=== PATIENT | female | born 1935 | race Caucasian/White ===

== ENCOUNTER 2021-11-10 22:00 | Inpatient (IN) | payer MEDICARE, SELFPAY ==
--- NOTE | ~2021-11-10 | XR_ITS ---
EXAMINATION: XR CHEST CLINICAL INFORMATION: Cough COMPARISON: Previous chest x-ray from yesterday TECHNIQUE: Frontal view of the chest was obtained. FINDINGS: The heart does not appear enlarged. The right pulmonary hilum appears prominent. There is question of increased central right bronchial markings. The lungs are otherwise clear. There is an air-fluid level to projects over the heart suggestive of an esophageal hernia. There is no pleural effusion or pneumothorax. Bony structures are unremarkable. XR/XR chest 1V IMPRESSION: Prominent right hilum and increased central bronchial markings questionable for airways disease or small infiltrate. Chest x-ray follow-up recommended.
--- NOTE | ~2021-11-10 | US_ITS ---
EXAMINATION: US VENOUS ULTRASOUND WITH DOPPLER LOWER EXTREMITY, BILATERAL CLINICAL INFORMATION: Bilateral lower extremity swelling. COMPARISON: None TECHNIQUE: Ultrasound of the deep veins is performed from the hip to the calf with compression sonography and color and pulse Doppler assessment. Spectral analysis with color-flow imaging is performed. FINDINGS: RIGHT: There is normal venous compression and respiratory variation and augmented flow. The visualized common femoral vein, superficial femoral vein, profunda femoral vein, popliteal vein, show no evidence of deep venous thrombosis. The evaluation of the calf veins is technically somewhat limited due to presence of edema however on color and spectral Doppler evaluation flow is noted in these veins. There is no significant popliteal fossa cyst. LEFT: There is normal venous compression and respiratory variation and augmented flow. The visualized common femoral vein, superficial femoral vein, profunda femoral vein, popliteal vein show no evidence of deep venous thrombosis. Somewhat limited evaluation of the peroneal veins due to presence of the visualized posterior tibial veins demonstrate normal color flow. Edema, blood flow is documented on spectral Doppler evaluation. There is a 4.1 x 0.6 x 2.1 cm simple-appearing fluid collection in the popliteal fossa representing a Aviles's cyst. If the patient's symptoms persist, followup ultrasound in 5 days 7 days might be of value to exclude proximal propagation from a non-visualized calf vein. US/US venous duplex LE BI IMPRESSION: Somewhat limited evaluation of few of the deep calf veins bilaterally likely due to presence of subcutaneous edema. Otherwise no DVT demonstrated in the bilateral lower extremity. A 4.1 x 0.6 x 2.1 cm left Aviles cyst.
--- NOTE | ~2021-11-10 | XR_ITS ---
EXAMINATION: XR CHEST CLINICAL INFORMATION: Shortness of breath COMPARISON: None TECHNIQUE: Frontal view of the chest was obtained. FINDINGS: No significant abnormality is noted involving the heart, lungs, mediastinum, bony thorax or soft tissues. Bibasilar atelectasis is present. XR/XR chest 1V IMPRESSION: No acute intrathoracic disease.
--- NOTE | ~2021-11-10 | MR_ITS ---
EXAMINATION: MR BRAIN WITHOUT CONTRAST CLINICAL INFORMATION: TIA. COMPARISON: CT from 11/10/2021. TECHNIQUE: Multiplanar, multisequence imaging of the brain was performed without contrast. FINDINGS: There is a small acute infarct measuring approximately 1.2 cm in size in the right peralta radiata. There are additional subcentimeter areas of mildly elevated signal on diffusion imaging not well correlated on the ADC map in the ventrolateral left thalamus and right external capsule which may represent small subacute infarcts. Moderate diffuse parenchymal volume loss evident with concordant ex vacuo dilatation of the ventricles. Mild chronic white matter microangiopathy noted. There is cystic encephalomalacia in the right middle cranial fossa with underlying gliosis in the right temporal pole and ex vacuo dilatation of the temporal horn of the right lateral ventricle. Right temporal postcraniotomy changes visible. Small cortically-based area of encephalomalacia noted in the right frontal lobe. No mass effect or midline shift is seen. The cerebellum is normal. The gradient refocused acquisition is normal. The craniovertebral junction, marrow signal, and midline structures are normal. The major intracranial flow voids at the level of the [place] are preserved. The dural venous sinus flow voids are maintained. The mastoid air cells are well aerated. Mild maxillary sinus mucosal thickening noted. Moderate spondylosis at the C3-C4 level. MR/MR head/brain wo con IMPRESSION: Small acute infarct in the right peralta radiata. Additional suspected subcentimeter subacute infarcts in the left thalamus and right external capsule. Chronic postoperative changes in the right temporal lobe. Small cortically-based area of encephalomalacia in the right frontal lobe. Moderate diffuse parenchymal volume loss and mild chronic white matter microangiopathy.
--- NOTE | ~2021-11-10 | CT_ITS ---
EXAMINATION: CT HEAD WITHOUT CONTRAST (STROKE PROTOCOL) CLINICAL INFORMATION: Stroke protocol. COMPARISON: None TECHNIQUE: Contiguous axial imaging was performed from the skull base to vertex without intravenous administration of contrast. This CT examination was performed using dose optimization techniques as appropriate, variously including the following: *Automated exposure control *Adjustment of mA and/or kV according to patient size (this includes techniques or standardized protocols for targeted exams where dose is matched to indication/reason for exam; i.e. extremities or head) *Use of iterative reconstruction technique DLP: Coronal and sagittal reformatted images are performed at CT scanner mGy-cm FINDINGS: Status post right temporal craniotomy. Focal encephalomalacia, chronic postoperative change of the right temporal lobe. There is no intracranial hemorrhage, hematoma, or extra-axial fluid collection. The moody-white matter differentiation appears symmetric. There is no acute infarct or mass lesion. There is generalized global volume loss. There is mild prominence of the ventricles and the sulci . There is mild hypodensity of the periventricular white matter due to chronic small vessel ischemic disease. There are vascular calcifications of the internal carotid arteries bilaterally. The visualized sinuses and middle ears and mastoid air cells show no significant mucosal thickening. There are no air-fluid levels. CT/CT head for stroke IMPRESSION: No acute intracranial pathology. This critical result was discussed with Dr. Gibson at 2246 hours on 11/10/2021. It was ascertained that the content and urgency of the report was understood at the time of direct communication.
--- NOTE | ~2021-11-10 | CT_ITS ---
EXAMINATION: CT ANGIOGRAM HEAD AND NECK CLINICAL INFORMATION: Transient ischemic attack. COM. PARISON: CT head dated 11/10/2021 TECHNIQUE: Test bolus sequences followed by intravenous administration 70 mL of Omnipaque 350 intravenous contrast. Helical imaging was performed in the axial plane from the mediastinum to the skull vertex. Delayed postcontrast imaging of the head was also performed. The data was processed at the radiographic technologist's workstation for generation of MIP sequences. Three-dimensional volume rendered reformatted images were also generated at an offline 3-D workstation. This CT examination was performed using dose optimization techniques as appropriate, variously including the following: *Automated exposure control *Adjustment of mA and/or kV according to patient size (this includes techniques or standardized protocols for targeted exams where dose is matched to indication/reason for exam; i.e. extremities or head) *Use of iterative reconstruction technique The degree of stenosis determined by NASCET criteria. DLP: 1518 mGy-cm FINDINGS: SOFT TISSUES AND LUNG APICES: No overt abnormality is appreciated. CTA NECK: The aortic arch has a classic configuration and the major arch vessel origins are non-stenotic. The vertebral arteries are co-dominant and both vertebral origins are widely patent. Both common carotid arteries are normal in course and caliber. Both internal carotid arteries demonstrate mild atherosclerotic plaque without significant stenosis. CTA HEAD: There is normal opacification of the major intracranial vessels. No acute proximal large vessel occlusion, focal flow-limiting stenosis, or saccular intracranial aneurysm is identified. No abnormal parenchymal enhancement or regional oligemia is visualized. HEAD (delayed): No intracranial mass, intercerebral edema, hemorrhage, or midline shift is evident. The ventricles and sulci are stable in size and configuration. No extra-axial collections are appreciated. Stable cystic encephalomalacia within the anterior right temporal lobe underlying the right pterional craniotomy, chronic. Mild background chronic white matter small vessel ischemic changes. No pathologic intracranial enhancement. Dural sinuses are patent. The paranasal sinuses are well-aerated and clear. CT/CT angio head neck IMPRESSION: No occlusion or hemodynamically significant stenosis within the intracranial or extracranial arterial vasculature
--- NOTE | 2021-11-10 22:07 | ECG_ITS ---
Test Reason : STROKE Blood Pressure : / mmHG Vent. Rate : 071 BPM Atrial Rate : 071 BPM P-R Int : 146 ms QRS Dur : 078 ms QT Int : 420 ms P-R-T Axes : 056 -01 019 degrees QTc Int : 456 ms Artifact in tracing Normal sinus rhythm Possibly normal EKG No previous ECGs available Referred By: Nataliia Mccauley Electronically Signed By:GENNY DIAZ
[2021-11-10 22:09] VITALS: BP 145/76; PULSE 78; O2SAT 88
--- NOTE | 2021-11-10 22:10 | ED.GENADULT ---
HPI - General Adult General Chief complaint: Stroke Stated complaint: STROKE. Time Seen by Provider: 11/10/21 22:05 Source: patient and EMS Mode of arrival: EMS Limitations: no limitations History of Present Illness HPI narrative: 86-year-old female came by EMS as a stroke protocol. Patient lives home alone independently around noon time ( 10 hours before arrival ) patient start to feel generalized weakness, when she tried to drink water water was drooling, otherwise patient declined any weakness or numbness or blurry vision or headache. Patient also noticed that she has been having scratchy throat, been coughing, with mild difficulty breathing, notice bilateral swelling lower extremities, patient noted to be hypoxic 88% on room air by EMS. On arrival in the ED patient had subjective complaint of slightly slurred speech but patient completes her med that she is able to express herself and find the words with no difficulties, screening neuro exam was unrevealing. Past medical history reportedly by EMS is significant for COPD. Patient confirms she is not taking anticoagulation. Related Data Allergies Allergy/AdvReac Type Severity Reaction Status Date / Time No Known Allergies Allergy Verified 11/10/21 22:06 Review of Systems Review of Systems: All other systems are reviewed and are negative Constitutional: Reports as per HPI and Reports no additional constitutional complaints Eyes: Reports as per HPI and Reports no additional eye complaints Reports system reviewed and no additional complaints, except as documented Cardiovascular: Reports as per HPI and Reports no additional cardiovascular complaints Respiratory: Reports as per HPI and Reports no additional respiratory complaints Gastrointestinal: Reports as per HPI and Reports no additional gastrointestinal complaints Genitourinary: Reports no additional female genitourinary complaints Musculoskeletal: Reports no additional musculoskeletal complaints Skin/Breast: Reports system reviewed and no additional complaints, except as docu Psychiatric: Reports no additional psychiatric complaints Endocrine: Reports no additional endocrine complaints Hematologic/Lymphatic: Reports no additional hematologic/lymphatic complaints Allergic/Immunologic: Reports no additional allergic/immunologic complaints Reports system reviewed and no additional complaints, except as documented and Reports Abnormal speech present PMFSH Social History Social History Advance Directives: No Advance Directives Information Provided: No Physical Exam Vital Signs: Vital Signs: Last Vital Signs Temp 98.3 F 11/10/21 22:29 Pulse 68 11/11/21 00:00 Resp 16 11/11/21 00:00 BP 132/57 L 11/11/21 00:00 Pulse Ox 100 11/11/21 00:00 BMI result Body Mass Index 28.3 Vital signs have been reviewed as appeared to be correct. Blood pressure normal. Heart rate normal. Respiration rate normal. Temperature normal. Oxygen saturation normal. Appearance: Alert. Oriented X3. No acute distress. Head: Normal external exam. Normocephalic. Atraumatic. No Lara signs noted. No raccoon eyes noted Eyes: PERRLA. EOMI. Conjunctiva and sclera normal. Eyelids normal. ENT: TM's Normal. Pharynx normal. Uvula midline. Moist mucous membranes. No trismus noted. No drooling noted. No muffled voice noted. Neck: Normal inspection. Neck supple. FROM. No adenopathy. Thyroid Normal. No meningeal signs. No neck mass noted. CVS: Normal heart rate and rhythm. Heart sound normal. No murmurs noted. Pulses normal throughout. Respiratory: No respiratory distress. Painless inspiration. Breath sounds normal. No wheezes/rales/rhonchi noted. Chest nontender. No accessory muscle usage noted or decreased air movement noted. Abdomen: Soft and nontender. Bowel sounds normal in all 4 quadrants. No distention noted. No organomegaly noted. No visible injury noted. Back: No CVA tenderness. Full range of motion noted. Skin: Skin warm and dry. Normal skin color. Normal skin turgor. No rashes/lesions/lacerations noted. Extremities: No lower extremity edema. Extremities exhibit normal range of motion. Extremities nontender. Neuro: Oriented X 3. Cranial nerve exam: II-XII are grossly intact No motor deficit. No sensory deficit. Reflexes normal. NIH Stroke Scale Internal: Initial- Upon Arrival Time: 22:17 Level of Consciousness: Alert Level of Consciousness Questions: Answers both questions correctly Level of Consciousness Commands: Performs both tasks correctly Best Gaze: Normal Visual: No visual loss Facial Palsy: Normal Motor Arm (Right): No drift Motor Arm (Left): No drift Motor Leg (Right): No drift Motor Leg (Left): No drift Limb Ataxia: Absent Sensory: Normal Best Language: Mild to moderate aphasia ( Subjectively by the patient but not appreciated on the physical exam.) Dysarthia: Normal Extinction and Inattention: No abnormality Score: 1 Course Course Course Narrative: assessment and plan. 86-year-old female came in as a stroke alert, main symptoms is slurred speech, and family concern of change mental status. Patient had normal neural exam with NIH score 1, negative CT/ CTA of the head and neck reportedly by EMS patient had history of cerebral aneurysm CT of the head the neck was unrevealing. Labs are unremarkable, patient COVID negative. As reportedly by EMS patient had O2 sat of 88%, patient has been giving her O2 oxygenation above 92% at all times while she is in the ED. Noted to have bilateral lower extremity swelling, will obtain ultrasound lower extremities in the morning. Medical Decision Making Lab Data Lab results reviewed: Yes I reviewed the patient's lab results. Result diagrams: 11/10/21 22:45 11/10/21 22:45 Labs: Lab Results 11/10/21 11/10/21 11/10/21 Range/Units 22:06 22:07 22:45 WBC 10.0 (4.8-10.8) X10*3/uL RBC 4.00 L (4.20-5.50) X10*6/uL Hgb 11.2 L (12.0-16.0) g/dl Hct 35.2 L (37.0-47.0) % MCV 88.0 (80.0-98.0) fL MCH 28.0 (27.0-33.0) pg MCHC 31.8 (31.0-35.0) g/dl RDW 14.0 (11.0-16.0) % Plt Count 353 (160-400) X10*3/uL MPV 8.6 L (9.4-12.3) fL Immature Gran % (Auto) 0.6 H (0.0-0.4) % Neut % (Auto) 88.4 H (45-73) % Lymph % (Auto) 5.0 L (20-40) % [place] % (Auto) 3.6 (2-11) % Eos % (Auto) 2.0 (0-4) % Baso % (Auto) 0.4 (0-2) % Lymph # (Auto) 0.5 L (1.2-4.9) X10*3/uL [place] # (Auto) 0.4 (0.1-1.2) X10*3/uL Eos # (Auto) 0.2 (0.0-0.4) X10*3/uL Baso # (Auto) 0.0 (0.0-0.2) X10*3/uL Abs Immat Gran (auto) 0.06 H (0.00-0.03) X10*3/uL Absolute Neuts (auto) 8.8 H (2.0-8.3) x10*3/uL Absolute Nucleated RBC 0.000 (0.0-0.012) X10*3/uL Nucleated RBC % (auto) 0.0 (0.0-0.2) /100WBC PT (9.9-13.0) SEC Whole Blood PT 13.6 H (11.1-13.5) sec INR (0.9-1.1) Whole Blood INR 1.1 (0.9-1.1) APTT (24.1-38.0) SEC Sodium (135-145) mmol/L Potassium (3.3-5.1) mmol/L Chloride (96-108) mmol/L Carbon Dioxide (22-29) mmol/L Anion Gap (12-20) BUN (9-16) mg/dL Creatinine (0.5-1.4) mg/dL Estim Creat Clear Calc Estimated GFR POC Glucose 102 (60-115) mg/dL Random Glucose (60-115) mg/dL Calcium (8.4-10.2) mg/dL Total Creatine Kinase (26-140) U/L Troponin I High Sens (<3.5-17.0) ng/L COVID-19 ([facility]) (Negative) COVID-19 Clin Com 11/10/21 11/10/21 11/10/21 Range/Units 22:45 22:45 22:45 WBC (4.8-10.8) X10*3/uL RBC (4.20-5.50) X10*6/uL Hgb (12.0-16.0) g/dl Hct (37.0-47.0) % MCV (80.0-98.0) fL MCH (27.0-33.0) pg MCHC (31.0-35.0) g/dl RDW (11.0-16.0) % Plt Count (160-400) X10*3/uL MPV (9.4-12.3) fL Immature Gran % (Auto) (0.0-0.4) % Neut % (Auto) (45-73) % Lymph % (Auto) (20-40) % [place] % (Auto) (2-11) % Eos % (Auto) (0-4) % Baso % (Auto) (0-2) % Lymph # (Auto) (1.2-4.9) X10*3/uL [place] # (Auto) (0.1-1.2) X10*3/uL Eos # (Auto) (0.0-0.4) X10*3/uL Baso # (Auto) (0.0-0.2) X10*3/uL Abs Immat Gran (auto) (0.00-0.03) X10*3/uL Absolute Neuts (auto) (2.0-8.3) x10*3/uL Absolute Nucleated RBC (0.0-0.012) X10*3/uL Nucleated RBC % (auto) (0.0-0.2) /100WBC PT 11.9 (9.9-13.0) SEC Whole Blood PT (11.1-13.5) sec INR 1.0 (0.9-1.1) Whole Blood INR (0.9-1.1) APTT 33.7 (24.1-38.0) SEC Sodium 140 (135-145) mmol/L Potassium 3.6 (3.3-5.1) mmol/L Chloride 104 (96-108) mmol/L Carbon Dioxide 28 (22-29) mmol/L Anion Gap 12 (12-20) BUN 19 H (9-16) mg/dL Creatinine 0.98 (0.5-1.4) mg/dL Estim Creat Clear Calc 42.2 Estimated GFR 54 POC Glucose (60-115) mg/dL Random Glucose 115 (60-115) mg/dL Calcium 8.0 L (8.4-10.2) mg/dL Total Creatine Kinase 14 L (26-140) U/L Troponin I High Sens 12.7 (<3.5-17.0) ng/L COVID-19 ([facility]) (Negative) COVID-19 Clin Com 11/10/21 Range/Units 22:45 WBC (4.8-10.8) X10*3/uL RBC (4.20-5.50) X10*6/uL Hgb (12.0-16.0) g/dl Hct (37.0-47.0) % MCV (80.0-98.0) fL MCH (27.0-33.0) pg MCHC (31.0-35.0) g/dl RDW (11.0-16.0) % Plt Count (160-400) X10*3/uL MPV (9.4-12.3) fL Immature Gran % (Auto) (0.0-0.4) % Neut % (Auto) (45-73) % Lymph % (Auto) (20-40) % [place] % (Auto) (2-11) % Eos % (Auto) (0-4) % Baso % (Auto) (0-2) % Lymph # (Auto) (1.2-4.9) X10*3/uL [place] # (Auto) (0.1-1.2) X10*3/uL Eos # (Auto) (0.0-0.4) X10*3/uL Baso # (Auto) (0.0-0.2) X10*3/uL Abs Immat Gran (auto) (0.00-0.03) X10*3/uL Absolute Neuts (auto) (2.0-8.3) x10*3/uL Absolute Nucleated RBC (0.0-0.012) X10*3/uL Nucleated RBC % (auto) (0.0-0.2) /100WBC PT (9.9-13.0) SEC Whole Blood PT (11.1-13.5) sec INR (0.9-1.1) Whole Blood INR (0.9-1.1) APTT (24.1-38.0) SEC Sodium (135-145) mmol/L Potassium (3.3-5.1) mmol/L Chloride (96-108) mmol/L Carbon Dioxide (22-29) mmol/L Anion Gap (12-20) BUN (9-16) mg/dL Creatinine (0.5-1.4) mg/dL Estim Creat Clear Calc Estimated GFR POC Glucose (60-115) mg/dL Random Glucose (60-115) mg/dL Calcium (8.4-10.2) mg/dL Total Creatine Kinase (26-140) U/L Troponin I High Sens (<3.5-17.0) ng/L COVID-19 ([facility]) Negative (Negative) COVID-19 Clin Com See Note Imaging Data Chest x-ray: Attestation: I personally reviewed and interpreted this imaging study as follows: Radiologist's impression: No acute intrathoracic disease. CT scan - head: Attestation: I personally reviewed and interpreted this imaging study as follows: Radiologist's impression: No acute intracranial pathology. Head and neck CTA: Attestation: I personally reviewed and interpreted this imaging study as follows: Radiologist's impression: No occlusion or hemodynamically significant stenosis within the intracranial or extracranial arterial vasculature? ? ECG Data Attestation: I personally reviewed and interpreted this ECG as follows: Interpretation: normal sinus rhythm at 71 beats per minutes, normal intervals, no ST-T changes. Discharge Plan Discharge Clinical Impression: Transient cerebral ischemia Patient Disposition: Admitted As Inpatient
[2021-11-10 22:13] LABS: Prothrombin Time Whole Bld POC 13.6 sec (11.1-13.5); ~PT, ~INR - Anti Coag Clinic 1.1 (0.9-1.1)
[2021-11-10 22:14] LABS: Glucose, Whole Blood 102 mg/dL (60-115)
[2021-11-10 22:29] VITALS: PULSE 69; RESP 17; TEMP 36.8; BMI 28.3
[2021-11-10 22:49] LABS: MANUAL DIFF FLAG NO
[2021-11-10 22:50] LABS: Basophils Percent Auto 0.4 % (0-2); Eosinophils Absolute Auto 0.2 X10*3/uL (0.0-0.4); Hematocrit 35.2 % (37.0-47.0); Hemoglobin 11.2 g/dl (12.0-16.0); Imm Gran Abs Auto 0.06 X10*3/uL (0.00-0.03); Imm Gran Pct Auto 0.6 % (0.0-0.4); Lymphocytes Absolute Auto 0.5 X10*3/uL (1.2-4.9); Mean Corpuscular HGB Conc 31.8 g/dl (31.0-35.0); Mean Platelet Volume 8.6 fL (9.4-12.3); Monocytes Absolute Auto 0.4 X10*3/uL (0.1-1.2); Monocytes Percent Auto 3.6 % (2-11); Neutrophils Absolute Auto 8.8 x10*3/uL (2.0-8.3); Neutrophils Percent Auto 88.4 % (45-73); Platelet Count 353 X10*3/uL (160-400)
[2021-11-10 22:55] LABS: Prothrombin Time 11.9 SEC (9.9-13.0)
[2021-11-10 22:58] LABS: Partial Thromboplastin Time 33.7 SEC (24.1-38.0)
[2021-11-10 22:59] LABS: Stroke Lab Use COMPLETE
[2021-11-10 23:05] LABS: Anion Gap 12 (12-20); Blood Urea Nitrogen 19 mg/dL (9-16); Carbon Dioxide 28 mmol/L (22-29); Chloride 104 mmol/L (96-108); Creatinine Clr Calc Pharmacy 42.2; Estimated Glomerular Filt Rate 54; Glucose Random 115 mg/dL (60-115); Potassium 3.6 mmol/L (3.3-5.1); Sodium 140 mmol/L (135-145)
[2021-11-10 23:10] LABS: Troponin-I High Sensitivity 12.7 ng/L (<3.5-17.0)
[2021-11-10 23:13] LABS: COVID-19 Test Negative (Negative)
[2021-11-11] VITALS (8 sets, daily range): BP systolic 91–132; BP diastolic 48–66; PULSE 62–90; RESP 12–22; TEMP 36.6; O2SAT 91–100
[2021-11-11] MEDS: iohexoL 350 MG/ML 100 ML INFUS..BTL 70 ML IV (01:06)
--- NOTE | 2021-11-11 01:54 | PM.IMHP ---
History of Present Illness Date of Service: 11/11/21 Chief Complaint: drooling, weakness An 86-year-old female with past medical history of COPD who presents to the hospital with complaints of generalized weakness, drooling, and having difficulty speaking appropriately. Patient reports that her voice and her speech stones funny and she was feeling generally weak mostly on the right lower extremity. She denies having any facial numbness or tingling, denies any upper extremity weakness. She denies having any headache or change in vision. She is also complaining of 1 month history of increasing and worsening cough, worsening sputum production, and dyspnea worsened on exertion. She is complaining of leg swelling bilaterally but worse on the right. She denies any fever or chills, no abdominal pain nausea or vomiting. on arrival to the ED patient hemodynamically stable with no significant abnormal vitals satting 94% on room air Labs are signific diabetes a count of 10.0, hemoglobin of 11.2, hematocrit 35.2, labs otherwise unremarkable. Troponin negative, COVID-19 negative. Chest x-ray negative, Head and neck CT angiogram shows no occlusion or hemodynamically significant stenosis within the intracranial or extracranial arterial vasculature this patient will be admitted for further evaluation Review of Systems Review of Systems: Yes all other systems are reviewed and are negative [facility] Medical History (Updated 11/11/21 @ 05:21 by Jaison Bran MD) COPD (chronic obstructive pulmonary disease) Pertinent family history: denies any family history Surgical History (Updated 11/11/21 @ 05:21 by Jaison Bran MD) No pertinent past surgical history Social History Advance Directives: No Advance Directives Information Provided: No Meds Allergies Allergy/AdvReac Type Severity Reaction Status Date / Time No Known Allergies Allergy Verified 11/10/21 22:06 Physical Exam Vital Signs and Narrative: Vital Signs: Last Vital Signs Temp 98.3 F 11/10/21 22:29 Pulse 68 11/11/21 00:00 Resp 16 11/11/21 00:00 BP 132/57 L 11/11/21 00:00 Pulse Ox 100 11/11/21 00:00 BMI result Body Mass Index 28.3 Const: General: cooperative and no acute distress Orientation/consciousness: patient oriented x3 Eyes: General: appearance normal, both eyes and all related structures Pupils: Equal, round and reactive pupils present Resp: Other: crackles bilaterally Effort & Inspection: normal respiratory effort Cardio: Rate: regular rate Rhythm: regular rhythm GI: Palpation (GI): Soft to palpation Auscultation: normal bowel sounds Skin: General skin exam: no rashes or lesions noted Neuro: Other: strength is 4/5 on the right, 5/5 on the left General: patient oriented x3 Cranial nerves: Yes Equal, round and reactive pupils present Cognition (Neuro): normal cognition Extrem: Other: 1+ pedal edema on the right General: Yes normal to inspection Results Labs CBC and Chem 7: 11/10/21 22:45 11/10/21 22:45 Labs: Laboratory Results - last 24 hr 11/10/21 11/10/21 11/10/21 22:06 22:07 22:45 MCV 88.0 MCH 28.0 MCHC 31.8 RDW 14.0 Plt Count 353 MPV 8.6 L Immature Gran % (Auto) 0.6 H Neut % (Auto) 88.4 H Lymph % (Auto) 5.0 L [place] % (Auto) 3.6 Eos % (Auto) 2.0 Baso % (Auto) 0.4 Lymph # (Auto) 0.5 L [place] # (Auto) 0.4 Eos # (Auto) 0.2 Baso # (Auto) 0.0 Abs Immat Gran (auto) 0.06 H Absolute Neuts (auto) 8.8 H Absolute Nucleated RBC 0.000 Nucleated RBC % (auto) 0.0 PT Whole Blood PT 13.6 H INR Whole Blood INR 1.1 APTT Anion Gap Estim Creat Clear Calc Estimated GFR POC Glucose 102 Random Glucose Calcium Total Creatine Kinase Troponin I High Sens COVID-19 ([facility]) COVID-19 Clin Com 11/10/21 11/10/21 11/10/21 22:45 22:45 22:45 MCV MCH MCHC RDW Plt Count MPV Immature Gran % (Auto) Neut % (Auto) Lymph % (Auto) [place] % (Auto) Eos % (Auto) Baso % (Auto) Lymph # (Auto) [place] # (Auto) Eos # (Auto) Baso # (Auto) Abs Immat Gran (auto) Absolute Neuts (auto) Absolute Nucleated RBC Nucleated RBC % (auto) PT 11.9 Whole Blood PT INR 1.0 Whole Blood INR APTT 33.7 Anion Gap 12 Estim Creat Clear Calc 42.2 Estimated GFR 54 POC Glucose Random Glucose 115 Calcium 8.0 L Total Creatine Kinase 14 L Troponin I High Sens 12.7 COVID-19 ([facility]) COVID-19 Clin Com 11/10/21 22:45 MCV MCH MCHC RDW Plt Count MPV Immature Gran % (Auto) Neut % (Auto) Lymph % (Auto) [place] % (Auto) Eos % (Auto) Baso % (Auto) Lymph # (Auto) [place] # (Auto) Eos # (Auto) Baso # (Auto) Abs Immat Gran (auto) Absolute Neuts (auto) Absolute Nucleated RBC Nucleated RBC % (auto) PT Whole Blood PT INR Whole Blood INR APTT Anion Gap Estim Creat Clear Calc Estimated GFR POC Glucose Random Glucose Calcium Total Creatine Kinase Troponin I High Sens COVID-19 ([facility]) Negative COVID-19 Clin Com See Note Imaging Radiologist's Impressions: Impressions Head CT 11/10/21 22:12 IMPRESSION: No acute intracranial pathology. This critical result was discussed with Dr. Gibson at 2246 hours on 11/10/2021. It was ascertained that the content and urgency of the report was understood at the time of direct communication. Chest X-Ray 11/10/21 22:20 IMPRESSION: No acute intrathoracic disease. Head/Neck CTA 11/11/21 01:01 IMPRESSION: No occlusion or hemodynamically significant stenosis within the intracranial or extracranial arterial vasculature Assessment and Plan (1) COPD exacerbation: Status: Acute (2) Transient cerebral ischemia: Status: Acute (3) Swelling of lower extremity: Status: Acute 86-year-old female who presents to the hospital with complaints of right-sided weakness, and slurred speech found to have COPD exacerbation # CVA vs generalized weakness - has some mild weakness on the right - head CTA negative - CN2-12 intact - head ct -ve - will obtain MRI, admit to telemetry - consult neurology - high dose statin and asa - lipid battery # COPD exacerbation - has increased cough, sputum production, shortness of breath - no evidence of pneumonia on chest x-ray, COVID-19 negative - low start patient on steroids, DuoNeb p.r.n. as well as q.i.d. scheduled - monitor respiratory status # lower extremity swelling - worse on the right with tenderness - possible DVT - will obtain venous duplex of lower extremities - does not appear to Bart overloaded but we will obtain BNP to rule out CHF exacerbation DVT prophylaxis: Lovenox Quality Stroke Does the patient have a stroke diagnosis?: No VTE Prior VTE?: No VTE Risk Level:: Medical - moderate - high VTE Device Contraindication: Treatment Not Indicated VTE Drug Contraindication: N/A - Med Ordered
[2021-11-11 06:20] LABS: MANUAL DIFF FLAG NO
[2021-11-11 06:21] LABS: Basophils Percent Auto 0.3 % (0-2); Eosinophils Absolute Auto 0.3 X10*3/uL (0.0-0.4); Eosinophils Percent Auto 2.3 % (0-4); Hematocrit 33.9 % (37.0-47.0); Hemoglobin 10.7 g/dl (12.0-16.0); Imm Gran Abs Auto 0.07 X10*3/uL (0.00-0.03); Imm Gran Pct Auto 0.6 % (0.0-0.4); Lymphocytes Absolute Auto 0.4 X10*3/uL (1.2-4.9); Mean Corpuscular HGB Conc 31.6 g/dl (31.0-35.0); Mean Corpuscular Hemoglobin 27.6 pg (27.0-33.0); Mean Corpuscular Volume 87.6 fL (80.0-98.0); Mean Platelet Volume 8.7 fL (9.4-12.3); Monocytes Absolute Auto 0.6 X10*3/uL (0.1-1.2); Monocytes Percent Auto 5.2 % (2-11); Neutrophils Absolute Auto 9.7 x10*3/uL (2.0-8.3); Neutrophils Percent Auto 87.6 % (45-73); Platelet Count 333 X10*3/uL (160-400); Red Blood Count 3.87 X10*6/uL (4.20-5.50)
[2021-11-11] MEDS: methylPREDNISolone Sod Succ 40 MG/ML VIAL IVPUSH ×2 (06:27→18:03)
[2021-11-11] MEDS: Aspirin Enteric Coated 81 MG TABLET.DR PO ×2 (06:27→09:28)
[2021-11-11 06:37] LABS: Anion Gap 12 (12-20); Blood Urea Nitrogen 17 mg/dL (9-16); Calcium 7.9 mg/dL (8.4-10.2); Carbon Dioxide 28 mmol/L (22-29); Chloride 104 mmol/L (96-108); Creatinine Clr Calc Pharmacy 47.1; Estimated Glomerular Filt Rate > 60; Glucose Random 103 mg/dL (60-115); Potassium 3.7 mmol/L (3.3-5.1); Sodium 140 mmol/L (135-145)
[2021-11-11 06:39] LABS: Cholesterol 142 mg/dL; HDL Cholesterol 41 mg/dL; LDL Cholesterol Calculated 86 mg/dl; Triglycerides 78 mg/dL
[2021-11-11 06:42] LABS: B Type Natriuretic Peptide 144 pg/mL (<100)
--- NOTE | 2021-11-11 08:56 | PHA.MEDREC ---
Pharmacy Consult ? Medication Reconciliation Pharmacy has completed the medication reconciliation.
[2021-11-11] MEDS: Albuterol/Iprat 2.5/0.5MG 3 ML AMPUL.NEB INHALE ×3 (09:03→20:36)
[2021-11-11] MEDS: Enoxaparin Sodium 40 MG/0.4 ML SYRINGE SUBCUT (09:28)
[2021-11-11] MEDS: 0.9 % Sodium Chloride Flush 3 ML SYRINGE IVFLUSH ×2 (09:28→16:06)
--- NOTE | 2021-11-11 11:39 | PC.NURSE ---
Pt A&Ox3, plan for MRI today for stroke work up, neuros grossly intact. Good PO intake, no complaints of pain, medicated as per MAR orders. Awaiting bed assignment. Will continue to monitor.
--- NOTE | 2021-11-11 15:37 | PM.NEUROCN ---
History of Present Illness Data of Consult Service Date: 11/11/21 Primary Care Provider: Unknown Physician HPI Reason for consult: Genl weakness and slurred speech This is a 86-year-old woman with history of COPD who presents with complaints of generalized weakness, drooling, and difficulty speaking with her speech sounding funny and she is generally weak, more so in the? right lower extremity.? She denies having any facial numbness or tingling, denies any upper extremity weakness, any headache or change in vision.? She is also complaining of 1 month history of increasing and worsening cough, worsening sputum production, and dyspnea worsened on exertion.? She is complaining of? leg swelling bilaterally but worse on the right.? She denies any fever or chills. Review of Systems Review of Systems: All other systems are reviewed and are negative Constitutional: Reports as per HPI and Reports no additional constitutional complaints Eyes: Reports as per HPI and Reports no additional eye complaints Reports system reviewed and no additional complaints, except as documented Cardiovascular: Reports as per HPI and Reports no additional cardiovascular complaints Respiratory: Reports as per HPI and Reports no additional respiratory complaints Gastrointestinal: Reports as per HPI and Reports no additional gastrointestinal complaints Genitourinary: Reports no additional female genitourinary complaints Musculoskeletal: Reports no additional musculoskeletal complaints Skin/Breast: Reports system reviewed and no additional complaints, except as docu Psychiatric: Reports no additional psychiatric complaints Endocrine: Reports no additional endocrine complaints Hematologic/Lymphatic: Reports no additional hematologic/lymphatic complaints Allergic/Immunologic: Reports no additional allergic/immunologic complaints Reports system reviewed and no additional complaints, except as documented and Reports Abnormal speech present Yes all other systems are reviewed and are negative [facility] Past Medical History Medical History (Updated 11/11/21 @ 15:43 by Kit Baltazar MD) COPD (chronic obstructive pulmonary disease) Family History Pertinent family history: denies any family history Surgical History Surgical History (Updated 11/11/21 @ 05:21 by Jaison Bran MD) No pertinent past surgical history Social History Social History Advance Directives: No Advance Directives Information Provided: No Meds Allergies Allergy/AdvReac Type Severity Reaction Status Date / Time No Known Allergies Allergy Verified 11/10/21 22:06 Active Medications: Current Medications Acetaminophen (Acetaminophen 325 Mg Tablet) 650 mg PO Q6H PRN PRN Reason: Pain, Mild (Pain Scale 1-3) Albuterol/Ipratropium (Albuterol/Iprat 2.5/0.5mg 3 Ml Ampul.Neb) 3 ml INHALE RQ4H PRN PRN Reason: Shortness of Breath/Wheezing Albuterol/Ipratropium (Albuterol/Iprat 2.5/0.5mg 3 Ml Ampul.Neb) 3 ml INHALE RQ4H WHILE AWAKE [facility] Last Admin: 11/11/21 13:09 Dose: Not Given Documented by: Aspirin (Aspirin Enteric Coated 81 Mg Tablet.) 81 mg PO DAILY [facility] Last Admin: 11/11/21 09:28 Dose: 81 mg Documented by: Atorvastatin Calcium (Atorvastatin Calcium 40 Mg Tablet) 40 mg PO BEDTIME [facility] Docusate Sodium (Docusate Sodium 100 Mg Capsule) 100 mg PO DAILY PRN PRN Reason: Constipation Enoxaparin Sodium (Enoxaparin Sodium 40 Mg/0.4 Ml Syringe) 40 mg SUBCUT Q24H [facility] Last Admin: 11/11/21 09:28 Dose: 40 mg Documented by: Methylprednisolone Sodium Succinate (Methylprednisolone Sod Succ 40 Mg/Ml Vial) 40 mg IVPUSH Q12H [facility] Last Admin: 11/11/21 06:27 Dose: 40 mg Documented by: Ondansetron HCl (Ondansetron Hcl 4 Mg/2 Ml Vial) 4 mg IVPUSH Q8H PRN PRN Reason: Nausea and Vomiting Sodium Chloride (0.9 % Sodium Chloride Flush 3 Ml Syringe) 3 ml IVFLUSH QSHIFT [facility] Last Admin: 11/11/21 09:28 Dose: 3 ml Documented by: Home Medications Medication Instructions Recorded Confirmed Last Taken Type albuterol sulfate 90 mcg/actuation 2 puff INHALATION Q4-6H PRN 11/11/21 11/11/21 Unknown History aerosol inhaler fluticasone fur. 100 mcg-umeclid 1 puff INHALATION DAILY 11/11/21 11/11/21 Unknown History 62.5 mcg-vilant 25 mcg inhalat.powder (Trelegy Ellipta) furosemide 20 mg tablet 1 tab PO DAILY 11/11/21 11/11/21 Unknown History Physical Exam Vital Signs: Vital Signs: Last Vital Signs Temp 97.8 F 11/11/21 12:21 Pulse 75 11/11/21 12:21 Resp 16 11/11/21 12:21 BP 116/57 L 11/11/21 12:21 Pulse Ox 95 11/11/21 12:21 BMI result Body Mass Index 28.3 Const: General: cooperative and no acute distress Orientation/consciousness: patient oriented x3 Eyes: General: appearance normal, both eyes and all related structures Pupils: Equal, round and reactive pupils present Resp: Other: crackles bilaterally Effort & Inspection: normal respiratory effort Cardio: Rate: regular rate Rhythm: regular rhythm GI: Palpation (GI): Soft to palpation Auscultation: normal bowel sounds Skin: General skin exam: no rashes or lesions noted Neuro: Other: She has mild weakness on the right 4/5 on the right, 5/5 on the left General: patient oriented x3 Cranial nerves: Yes Equal, round and reactive pupils present Cognition (Neuro): normal cognition Extrem: Other: 1+ pedal edema on the right General: Yes normal to inspection Results Labs CBC & Chem 7: 11/11/21 05:55 11/11/21 05:55 Labs: Short CBC 11/10/21 11/11/21 Range/Units 22:45 05:55 WBC 10.0 11.0 H (4.8-10.8) X10*3/uL Hgb 11.2 L 10.7 L (12.0-16.0) g/dl Hct 35.2 L 33.9 L (37.0-47.0) % Plt Count 353 333 (160-400) X10*3/uL BMP 11/10/21 11/11/21 22:45 05:55 Sodium 140 140 Potassium 3.6 3.7 Chloride 104 104 Carbon Dioxide 28 28 BUN 19 H 17 H Creatinine 0.98 0.88 Calcium 8.0 L 7.9 L Cardiac Enzymes 11/10/21 Range/Units 22:45 Total Creatine Kinase 14 L (26-140) U/L Assessment and Plan (1) COPD exacerbation: Status: Acute (2) Swelling of lower extremity: Status: Acute (3) 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 These could be more likely embolic or possibly from small vessel disease.CTA of head and neck is without occlusive disease. Recom. Echocardiogram, cardiac monitoring for atrial fib. ASA and plavix 75mg. PT/OT and speech therapy 86-year-old female who presents to the hospital with complaints of right-sided weakness, and slurred speech found to have COPD exacerbation # CVA vs generalized weakness - has some mild weakness on the right - head CTA negative - CN2-12 intact - head ct -ve - will obtain MRI, admit to telemetry - consult neurology - high dose statin and asa - lipid battery # COPD exacerbation - has increased cough, sputum production, shortness of breath - no evidence of pneumonia on chest x-ray, COVID-19 negative - low start patient on steroids, DuoNeb p.r.n. as well as q.i.d. scheduled - monitor respiratory status # lower extremity swelling - worse on the right with tenderness - possible DVT - will obtain venous duplex of lower extremities - does not appear to Bart overloaded but we will obtain BNP to rule out CHF exacerbation DVT prophylaxis: Lovenox Procedures Date of Service Date of Service: 11/11/21
--- NOTE | 2021-11-11 16:12 | MHC.STROKE ---
11/10/21 2155 ems pre-notified, Stroke Alert, Slurred speech. Arrived at 2200, seen by stroke protocol activated, onset of symtpoms 1200 today, therefore out of the window for TPA, direct to ct, no bleed, cta h/n done. verified that the patient passed swallow screen at 0625 prior to po aspirin, mri done today + acute and sub-acute strokes, see mri reading and Dr. Baltazar's note. Please provide stroke education booklet, lipid panel, Physical Therapy eval.
--- NOTE | 2021-11-11 17:02 | PC.NURSE ---
Pt OOB to chair with standby assist. Awaiting bed assignment, call ellison within reach. Will continue to monitor.
--- NOTE | 2021-11-11 17:09 | PM.EVENT ---
Event Note Date of Service: 11/11/21 Event Note: Patient seen and examined by hospitalist service this morning. Seen and examined again- denies any chest pain shortness breath abdominal pain or fever chills or cough or phlegm. Seems awake alert. Physical exam unchanged except She has mild weakness on the right 4/5 on the right, 5/5 on the left? General: patient oriented x3? Cranial nerves: Yes Equal, round and reactive pupils present? Cognition - normal cognition assessment and plan: Coordinated in H&P note: neuro eval noted patient is already on aspirin, added Plavix, continue statin, lipid panel noted, echo added, continue tele neuro checks. Continue current COPD management-shortness of breath is improving
[2021-11-11] MEDS: Clopidogrel Bisulfate 75 MG TABLET PO (18:03)
[2021-11-11] MEDS: Omeprazole 20 MG CAPSULE.DR PO (18:03)
[2021-11-11] MEDS: Atorvastatin Calcium 40 MG TABLET PO (20:34)
[2021-11-11] MEDS: Famotidine 20 MG TABLET PO (20:34)
[2021-11-12] VITALS (7 sets, daily range): BP systolic 103–168; BP diastolic 43–81; PULSE 57–99; RESP 14–25; TEMP 36.3–36.8; O2SAT 94–96
[2021-11-12] MEDS: methylPREDNISolone Sod Succ 40 MG/ML VIAL IVPUSH ×2 (06:31→19:18)
[2021-11-12] MEDS: Omeprazole 20 MG CAPSULE.DR PO ×2 (06:31→15:59)
[2021-11-12] MEDS: Clopidogrel Bisulfate 75 MG TABLET PO (08:23)
[2021-11-12] MEDS: Aspirin Enteric Coated 81 MG TABLET.DR PO (08:23)
[2021-11-12] MEDS: Famotidine 20 MG TABLET PO ×2 (08:23→21:13)
[2021-11-12] MEDS: Enoxaparin Sodium 40 MG/0.4 ML SYRINGE SUBCUT (08:24)
[2021-11-12] MEDS: 0.9 % Sodium Chloride Flush 3 ML SYRINGE IVFLUSH ×2 (08:24→23:47)
--- NOTE | 2021-11-12 08:33 | HO.PM.IMPN ---
Subjective Subjective Date of Service: 11/12/21 Interval History: cva Review of Systems feeling slightly better shortness of breath improving Denies any chest pain or abdominal pain or nausea or vomiting or cough or phlegm. I Physical Exam Vital Signs: Vital Signs: Last Vital Signs Temp 97.8 F 11/11/21 12:21 Pulse 98 11/12/21 04:18 Resp 25 H 11/12/21 04:18 BP 130/72 11/12/21 04:18 Pulse Ox 96 11/12/21 04:18 BMI result Body Mass Index 28.3 Physical exam: Appearance: Alert.? Oriented X3.sob seems improving.? cvs: rrr, [id number] . res: bretah sounds slightly improving , has rhonchii abd: no rebound or guarding ,nt, bs present. ext pulses present , no cyanosis . neuro: axo3 , simialr as yesterday -She has mild weakness on the right 4/5 on the right, 5/5 on the left? General: patient oriented x3? Cranial nerves: Yes Equal, round and reactive pupils present? Cognition - normal cognition Objective Data Active Medications Acetaminophen (Acetaminophen 325 Mg Tablet) 650 mg PO Q6H PRN PRN Reason: Pain, Mild (Pain Scale 1-3) Albuterol/Ipratropium (Albuterol/Iprat 2.5/0.5mg 3 Ml Ampul.Neb) 3 ml INHALE RQ4H PRN PRN Reason: Shortness of Breath/Wheezing Albuterol/Ipratropium (Albuterol/Iprat 2.5/0.5mg 3 Ml Ampul.Neb) 3 ml INHALE RQ4H WHILE AWAKE [facility] Last Admin: 11/11/21 20:36 Dose: 3 ml Documented by: JACKSON Aspirin (Aspirin Enteric Coated 81 Mg Tablet.) 81 mg PO DAILY [facility] Last Admin: 11/12/21 08:23 Dose: 81 mg Documented by: SALOMON Atorvastatin Calcium (Atorvastatin Calcium 40 Mg Tablet) 40 mg PO BEDTIME [facility] Last Admin: 11/11/21 20:34 Dose: 40 mg Documented by: AUBREY Clopidogrel Bisulfate (Clopidogrel Bisulfate 75 Mg Tablet) 75 mg PO DAILY [facility] Last Admin: 11/12/21 08:23 Dose: 75 mg Documented by: SAOLMON Docusate Sodium (Docusate Sodium 100 Mg Capsule) 100 mg PO DAILY PRN PRN Reason: Constipation Enoxaparin Sodium (Enoxaparin Sodium 40 Mg/0.4 Ml Syringe) 40 mg SUBCUT Q24H [facility] Last Admin: 11/12/21 08:24 Dose: 40 mg Documented by: SALOMON Famotidine (Famotidine 20 Mg Tablet) 20 mg PO BID [facility] Last Admin: 11/12/21 08:23 Dose: 20 mg Documented by: SALOMON Methylprednisolone Sodium Succinate (Methylprednisolone Sod Succ 40 Mg/Ml Vial) 40 mg IVPUSH Q12H [facility] Last Admin: 11/12/21 06:31 Dose: 40 mg Documented by: AUBREY Omeprazole (Omeprazole 20 Mg Capsule.) 20 mg PO BID@0630,1630 [facility] Last Admin: 11/12/21 06:31 Dose: 20 mg Documented by: AUBREY Ondansetron HCl (Ondansetron Hcl 4 Mg/2 Ml Vial) 4 mg IVPUSH Q8H PRN PRN Reason: Nausea and Vomiting Sodium Chloride (0.9 % Sodium Chloride Flush 3 Ml Syringe) 3 ml IVFLUSH QSHIFT [facility] Last Admin: 11/12/21 08:24 Dose: 3 ml Documented by: SALOMON Labs CBC & Chem 7: 11/11/21 05:55 11/11/21 05:55 Assessment and Plan (1) Stroke (cerebrum): Status: Acute (2) Swelling of lower extremity: Status: Acute (3) COPD exacerbation: Status: Acute Assessment and Plan: 86-year-old female who presents to the hospital with complaints of right-sided weakness, and slurred speech found to have COPD exacerbation 1. CVA vs generalized weakness - has some mild weakness on the right head CTA negative and head ct -ve. 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 These could be more likely embolic or possibly from small vessel disease.CTA of head and neck is without occlusive disease. neuro:high dose statin and asa, tele echo for possible embolic cva. pt/ot/speech eval 2. COPD exacerbation-? has increased cough, sputum production, shortness of breath - no? evidence of pneumonia on chest x-ray, COVID-19 negative -? low start patient on steroids, DuoNeb p.r.n. as well as q.i.d. scheduled -? monitor respiratory status 3. lower extremity swelling-? seems improving dvt study neg elevated bnp , leg swellin , cva embolic will add echo for ? chf , also ?embolic cva. , add trial lasix cardiology eval in am ?DVT prophylaxis: Lovenox Quality Stroke Does the patient have a stroke diagnosis?: No VTE Prior VTE?: No VTE Risk Level:: Medical - moderate - high VTE Device Contraindication: Treatment Not Indicated VTE Drug Contraindication: N/A - Med Ordered
--- NOTE | 2021-11-12 12:27 | PC.NURSE ---
Pt A&Ox3, neuros intact, no complaints of pain, SB on the monitor in the mid 50's at this time, no complaints of pain, OOB to Chair for breakfast, MD made aware of cough while drinking, speech eval ordered. Pt ambulated to the BR with standby assist. Awaiting bed assignment, will continue to monitor.
--- NOTE | 2021-11-12 13:07 | MHC.CM.PN ---
PATIENT LIVES ALONE SHE STATES THAT HER DAUGHTER, ADRI, IS HCP. COPY REQUESTED. PATIENT USES NO DME, ELDER SERVICES, OR VNA SERVICES SHE IS OPEN TO HAVING A VNA REFERRAL IF RECOMMENDED AT TIME OF DISCHARGE AND STATES THAT SHE HAS NO PREFERENCE FOR [facility]. CASE MANAGEMENT TO FOLLOW FOR DISCHARGE NEEDS. PCP IS AT [facility] IN [place]. CHANDLER 11/12 IN CHART.
[2021-11-12] MEDS: Furosemide 20 MG/2 ML VIAL IVPUSH (15:59)
[2021-11-12] MEDS: Albuterol/Iprat 2.5/0.5MG 3 ML AMPUL.NEB INHALE (21:00)
[2021-11-12] MEDS: Atorvastatin Calcium 40 MG TABLET PO (21:13)
[2021-11-13] VITALS (11 sets, daily range): BP systolic 115–142; BP diastolic 47–86; PULSE 56–80; RESP 18–20; TEMP 36–36.8; O2SAT 62–99
[2021-11-13] MEDS: Omeprazole 20 MG CAPSULE.DR PO ×2 (06:00→18:13)
[2021-11-13] MEDS: methylPREDNISolone Sod Succ 40 MG/ML VIAL IVPUSH ×2 (06:01→18:12)
--- NOTE | 2021-11-13 07:38 | P.PNIM_ITS ---
Subjective Subjective Date of Service: 11/13/21 Interval History: CVA Review of Systems has cough /? swallow Denies any chest pain or shortness of breath or abdominal pain or fever or chills Physical Exam Vital Signs: Vital Signs: Last Vital Signs Temp 98.0 F 11/13/21 03:31 Pulse 80 11/13/21 03:31 Resp 20 11/13/21 03:31 BP 117/79 11/13/21 03:31 Pulse Ox 95 11/13/21 03:31 BMI result Body Mass Index 28.3 ? Appearance: Alert.? Oriented X3.sob seems improving.? cvs: rrr, [id number] . res: bretah sounds slightly improving , has rhonchii abd: no rebound or guarding ,nt, bs present. ext pulses present , no cyanosis . neuro: axo3 ,? simialr as yesterday -She has mild weakness on the right 4/5 on the right, 5/5 on the left? General: patient oriented x3? Cranial nerves: Yes Equal, round and reactive pupils present? Cognition - normal cognitio Objective Data Active Medications Acetaminophen (Acetaminophen 325 Mg Tablet) 650 mg PO Q6H PRN PRN Reason: Pain, Mild (Pain Scale 1-3) Albuterol/Ipratropium (Albuterol/Iprat 2.5/0.5mg 3 Ml Ampul.Neb) 3 ml INHALE RQ4H PRN PRN Reason: Shortness of Breath/Wheezing Albuterol/Ipratropium (Albuterol/Iprat 2.5/0.5mg 3 Ml Ampul.Neb) 3 ml INHALE RQ4H WHILE AWAKE [facility] Last Admin: 11/12/21 21:00 Dose: 3 ml Documented by: LILIA Aspirin (Aspirin Enteric Coated 81 Mg Tablet.) 81 mg PO DAILY [facility] Last Admin: 11/12/21 08:23 Dose: 81 mg Documented by: SALOMON Atorvastatin Calcium (Atorvastatin Calcium 40 Mg Tablet) 40 mg PO BEDTIME [facility] Last Admin: 11/12/21 21:13 Dose: 40 mg Documented by: JANESSA Clopidogrel Bisulfate (Clopidogrel Bisulfate 75 Mg Tablet) 75 mg PO DAILY [facility] Last Admin: 11/12/21 08:23 Dose: 75 mg Documented by: HO.N-RAMSK Docusate Sodium (Docusate Sodium 100 Mg Capsule) 100 mg PO DAILY PRN PRN Reason: Constipation Enoxaparin Sodium (Enoxaparin Sodium 40 Mg/0.4 Ml Syringe) 40 mg SUBCUT Q24H [facility] Last Admin: 11/12/21 08:24 Dose: 40 mg Documented by: PETE-RAMSK Famotidine (Famotidine 20 Mg Tablet) 20 mg PO BID [facility] Last Admin: 11/12/21 21:13 Dose: 20 mg Documented by: JANESSA Furosemide (Furosemide 20 Mg/2 Ml Vial) 20 mg IVPUSH DAILY [facility]; Protocol Last Admin: 11/12/21 15:59 Dose: 20 mg Documented by: PETE-RAMGRANT Methylprednisolone Sodium Succinate (Methylprednisolone Sod Succ 40 Mg/Ml Vial) 40 mg IVPUSH Q12H [facility] Last Admin: 11/13/21 06:01 Dose: 40 mg Documented by: CHRISTIANO Omeprazole (Omeprazole 20 Mg Capsule.) 20 mg PO BID@0630,1630 [facility] Last Admin: 11/13/21 06:00 Dose: 20 mg Documented by: CHRISTIANO Ondansetron HCl (Ondansetron Hcl 4 Mg/2 Ml Vial) 4 mg IVPUSH Q8H PRN PRN Reason: Nausea and Vomiting Sodium Chloride (0.9 % Sodium Chloride Flush 3 Ml Syringe) 3 ml IVFLUSH QSHIFT [facility] Last Admin: 11/12/21 23:47 Dose: 3 ml Documented by: CHRISTIANO Labs CBC & Chem 7: 11/11/21 05:55 11/11/21 05:55 Assessment and Plan (1) Stroke (cerebrum): Status: Acute (2) Swelling of lower extremity: Status: Acute (3) COPD exacerbation: Status: Acute Assessment and Plan: 86-year-old female who presents to the hospital with complaints of right-sided weakness, and slurred speech found to have COPD exacerbation 1. CVA vs generalized weakness - has some mild weakness on the right head CTA negative and head ct -ve. 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 These could be more likely embolic or possibly from small vessel disease.CTA of head and neck is without occlusive disease. neuro:high dose statin and asa, tele echo for possible embolic cva. pt/ot/speech eval 2. COPD exacerbation-? has increased cough, sputum production, shortness of breath - no? evidence of pneumonia on chest x-ray, COVID-19 negative added repeat cxr -? low start patient on steroids, DuoNeb p.r.n. as well as q.i.d. scheduled -? monitor respiratory status 3. lower extremity swelling-? seems improving dvt study neg elevated bnp , leg swellin , cva embolic will add echo for ? chf , also ?embolic cva.? , add trial lasix cardiology eval in am ?DVT prophylaxis: [place] Quality Stroke Does the patient have a stroke diagnosis?: No VTE Prior VTE?: No VTE Risk Level:: Medical - moderate - high VTE Device Contraindication: Treatment Not Indicated VTE Drug Contraindication: N/A - Med Ordered
[2021-11-13] MEDS: Albuterol/Iprat 2.5/0.5MG 3 ML AMPUL.NEB INHALE ×4 (09:04→20:08)
[2021-11-13] MEDS: Furosemide 20 MG/2 ML VIAL IVPUSH (09:36)
[2021-11-13] MEDS: Clopidogrel Bisulfate 75 MG TABLET PO (09:37)
[2021-11-13] MEDS: Aspirin Enteric Coated 81 MG TABLET.DR PO (09:37)
[2021-11-13] MEDS: Famotidine 20 MG TABLET PO ×2 (09:37→20:34)
[2021-11-13] MEDS: Enoxaparin Sodium 40 MG/0.4 ML SYRINGE SUBCUT (09:37)
[2021-11-13] MEDS: 0.9 % Sodium Chloride Flush 3 ML SYRINGE IVFLUSH ×2 (09:50→18:13)
--- NOTE | 2021-11-13 11:00 | PC.NURSE ---
Patient had episode of choking on water while taking her morning pills. Lungs with expiratory wheezing and patient davison, Anxious. Nonproductive cough. Sats 95% on room air. Dr. Ibrahim notified and cxr taken. Patient made NPO while waiting for Swallow Eval.
--- NOTE | 2021-11-13 13:09 | MHC.CM.PN ---
Per MD, Patient may be ready for dc tomorrow.Patient has been accepted at [facility] and Patient has accepted that bed offer. CM will continue to follow.
--- NOTE | 2021-11-13 14:51 | MHC.SL.SWA ---
Speech Pathologist Impression: Oralpharyngeal Dysphagia Risk of Aspiration Due to: Neurological Condition Dysphasia Diet Status: Upgrade Liquid Consistency and Strategies for Safe Swallow: Liquid Intake Recommendation: [place] Thick Liquid Intake Strategies: Small Sips No Straws Solid Food Consistency: Dietary Recommendations: Grnd/Mech Altered (NDD2) Additional Modifications to Solid Foods: Oral Medication Intake: Crushed with Puree Compensatory Strategies and Precautions to be Taken for Safe Swallow: Sitting Upright (90 deg) No Straw Liquids from Cup Liquids from Spoon Alternate Liquids/Solids Supervision While Eating and Drinking for Safe Swallow: Total Supervision (1:1) Foods to Avoid: Swallowing Recommended Treatments: Compens. Strategy Educat. Recommendation for Speech: Inpatient Speech Therapy Comment: Pt presents w/oralpharyngeal dysphagia, w/oral phase prolonged due to maladaptive mastication/bolus management (mashing w/tongue), pharyngeal phase w/sporadic delay of swallow, decreased laryngeal elevation on swallow. Pt had steve signs of aspiration on thin liquid, tolerated NECTAR THICK liquid w/o clinical s/s aspiration. Recommend start diet of Ground/Mechanical (NDD2), w/ NECTAR THICK liquid, and PILLS CRUSHED in PUREE. Pt will need supervision during meals to monitor for aspiration signs, but is able to self feed as long as tray is set up and food is in manageable pieces. Diet recommendation sent by secure text to MD, Potable Water Treatment Operator, Dietary. CHIEF STRATEGY OFFICER will follow to monitor toleration diet, re-assess swallow and advance diet as needed. Frequency/Duration: M-F Date Range for Service Req: While inpatient Timeline to reassess: Scouring Machine Tender Clinican/Clinical Fellow: No Supervisory Statement: I have reviewed and agree with the student/clinical fellow's documentation: N/A Speech Language Pathologist: Madeline Hughes M.A., CCC-CHIEF STRATEGY OFFICER
--- NOTE | 2021-11-13 18:04 | PM.CNCAR ---
History of Present Illness History of Present Illness Date of Service: 11/13/21 Requesting physician: Elver Ibrahim Chief complaint: CVA Narrative: 86-year-old female who is presenting for cough and difficulty speaking. She also had some concerns based on the chart for right-sided weakness and imaging has showed multiple infarcts. She is concerned about her cough. She is saying she has been coughing for long time. This is worse when she is eating or drinking and there is some concern for aspiration. Denies any chest discomfort shortness of breath right no otherwise. She has background of COPD. [facility] Past Medical History Medical History COPD (chronic obstructive pulmonary disease) Surgical History Surgical History No pertinent past surgical history Social History Social History Household Members: None Household Members Other:: daughter, son live near Housing: [facility] Do you presently have visiting nurse or other home services: No Patient Tobacco Use Status: Former Tobacco user service: No Current occupational status: retired [employer] Allergies Allergy/AdvReac Type Severity Reaction Status Date / Time No Known Allergies Allergy Verified 11/10/21 22:06 Active Medications: Current Medications Acetaminophen (Acetaminophen 325 Mg Tablet) 650 mg PO Q6H PRN PRN Reason: Pain, Mild (Pain Scale 1-3) Albuterol/Ipratropium (Albuterol/Iprat 2.5/0.5mg 3 Ml Ampul.Neb) 3 ml INHALE RQ4H PRN PRN Reason: Shortness of Breath/Wheezing Albuterol/Ipratropium (Albuterol/Iprat 2.5/0.5mg 3 Ml Ampul.Neb) 3 ml INHALE RQ4H WHILE AWAKE [facility] Last Admin: 11/13/21 15:42 Dose: 3 ml Documented by: Aspirin (Aspirin Enteric Coated 81 Mg Tablet.) 81 mg PO DAILY [facility] Last Admin: 11/13/21 09:37 Dose: 81 mg Documented by: Atorvastatin Calcium (Atorvastatin Calcium 40 Mg Tablet) 40 mg PO BEDTIME [facility] Last Admin: 11/12/21 21:13 Dose: 40 mg Documented by: Clopidogrel Bisulfate (Clopidogrel Bisulfate 75 Mg Tablet) 75 mg PO DAILY [facility] Last Admin: 11/13/21 09:37 Dose: 75 mg Documented by: Docusate Sodium (Docusate Sodium 100 Mg Capsule) 100 mg PO DAILY PRN PRN Reason: Constipation Enoxaparin Sodium (Enoxaparin Sodium 40 Mg/0.4 Ml Syringe) 40 mg SUBCUT Q24H [facility] Last Admin: 11/13/21 09:37 Dose: 40 mg Documented by: Famotidine (Famotidine 20 Mg Tablet) 20 mg PO BID [facility] Last Admin: 11/13/21 09:37 Dose: 20 mg Documented by: Furosemide (Furosemide 20 Mg/2 Ml Vial) 20 mg IVPUSH DAILY [facility]; Protocol Last Admin: 11/13/21 09:36 Dose: 20 mg Documented by: Piperacillin Sod/Tazobactam (Sod 3.375 gm/ Sodium Chloride) 50 mls @ 100 mls/hr IV Q6H [facility] Methylprednisolone Sodium Succinate (Methylprednisolone Sod Succ 40 Mg/Ml Vial) 40 mg IVPUSH Q12H [facility] Last Admin: 11/13/21 06:01 Dose: 40 mg Documented by: Omeprazole (Omeprazole 20 Mg Capsule.Dr) 20 mg PO BID@0630,1630 [facility] Last Admin: 11/13/21 06:00 Dose: 20 mg Documented by: Ondansetron HCl (Ondansetron Hcl 4 Mg/2 Ml Vial) 4 mg IVPUSH Q8H PRN PRN Reason: Nausea and Vomiting Sodium Chloride (0.9 % Sodium Chloride Flush 3 Ml Syringe) 3 ml IVFLUSH QSHIFT [facility] Last Admin: 11/13/21 09:50 Dose: 3 ml Documented by: Home Medications Medication Instructions Recorded Confirmed Last Taken Type albuterol sulfate 90 mcg/actuation 2 puff INHALATION Q4-6H PRN 11/11/21 11/11/21 Unknown History aerosol inhaler fluticasone fur. 100 mcg-umeclid 1 puff INHALATION DAILY 11/11/21 11/11/21 Unknown History 62.5 mcg-vilant 25 mcg inhalat.powder (Trelegy Ellipta) furosemide 20 mg tablet 1 tab PO DAILY 11/11/21 11/11/21 Unknown History Physical Exam Vital Signs: Vital Signs: Last Vital Signs Temp 97.3 F 11/13/21 16:00 Pulse 66 11/13/21 16:00 Resp 18 11/13/21 16:00 BP 133/65 11/13/21 16:00 Pulse Ox 95 11/13/21 16:00 BMI result Body Mass Index 28.3 GENERAL APPEARANCE: pleasant. Hoarseness of voice. Coughing. NECK: no carotid bruit, no jugular venous distention. SKIN: no suspicious lesions, warm and dry. HEART: no murmurs, regular rate and rhythm. LUNGS: clear to auscultation bilaterally. ABDOMEN: soft, nontender. EXTREMITIES: no edema. PERIPHERAL PULSES: equal. NEUROLOGIC: No gross deficits, AAO X 3 Objective Labs and Meds Result diagrams: 11/11/21 05:55 11/11/21 05:55 Imaging Radiologist's impression: Impressions Chest X-Ray 11/13/21 12:44 IMPRESSION: Prominent right hilum and increased central bronchial markings questionable for airways disease or small infiltrate. Chest x-ray follow-up recommended. Assessment and Plan (1) Stroke (cerebrum): Status: Acute 86-year-old female with multiple strokes on imaging. She has cough and hoarseness of voice. There is some risk and concern for aspiration. She has been started on aspirin Plavix appropriately. There is no evidence of atrial fibrillation. She should monitor on telemetry. If during her stay the telemetry does not show atrial fibrillation then I will consider doing 14 day Holter monitor her as outpatient. Thank you for allowing me to participate in the care of your patient. Please feel free to contact me if you have any questions. Procedures Date of Service Date of Service: 11/13/21
[2021-11-13] MEDS: Piperacillin Sodium/Tazobactam 3.375 GM in 0.9 % Sodium Chloride 50 ML IV (18:13)
[2021-11-13] MEDS: Atorvastatin Calcium 40 MG TABLET PO (20:34)
[2021-11-14] VITALS (8 sets, daily range): BP systolic 131–167; BP diastolic 63–72; PULSE 51–81; RESP 17–20; TEMP 36.1–36.8; O2SAT 94–100
[2021-11-14] MEDS: 0.9 % Sodium Chloride Flush 3 ML SYRINGE IVFLUSH ×3 (00:26→16:05)
[2021-11-14] MEDS: Piperacillin Sodium/Tazobactam 3.375 GM in 0.9 % Sodium Chloride 50 ML IV ×2 (00:26→06:13)
[2021-11-14] MEDS: methylPREDNISolone Sod Succ 40 MG/ML VIAL IVPUSH (06:13)
[2021-11-14] MEDS: Omeprazole 20 MG CAPSULE.DR PO ×2 (06:48→16:05)
--- NOTE | 2021-11-14 07:54 | PM.DS ---
DS: Providers Provider Date of Service: 11/14/21 Date of admission: 11/11/21 01:54 Primary care physician: Unknown Physician Consults: 11/11/21 02:32 Consult to Neurology Routine Consulting Provider: [facility] Reason for consultation: TIA Has provider been notified: No 11/12/21 14:59 Consult to Cardiology Routine Consulting Provider: Crispin Armando Reason for consultation: cva embolic ,also ?chf DS: Diagnosis Discharge Diagnosis (1) Stroke (cerebrum): Status: Acute DS: Summary Hospital Course Hospital Course: date of service and discharge:11/14/21. 86-year-old female who presents to the hospital with complaints of right-sided weakness, and slurred speech found to have COPD exacerbation hopsital course: patient admitted to the hospital because of CVA- started on aspirin, Plavix, statin in addition followed on telemetry- seems fine. Seen by Cardiology echo preliminaries discussed with cardio seems fine, cardio may arrange outpatient cardiac follow-up for possible Holter. seen by PT recommended acute rehab. Seen by speech and Swallow recommended mechanical/ground soft diet and nectar thick. Also in addition to that treated for COPD exacerbation- with nebs and steroids seems improving also added antibiotics for possible mild pneumonia. will be discharged on p.o. says steroids as well as p.o. Augmentin. Above management discussed with the patient in detail length she understand and in agreement with the above plan, time spent 50 minutes and 50% time spent on counseling. Significant findings: As above. Procedures performed: None. Treatment and response: As above. Complications: None. Time Spent with Patient Time attestation: Total time spent providing and/or coordinating discharge services: Discharge coordination time: Greater than 30 minutes Quality: Stroke Does the patient have a stroke diagnosis?: No Physical Exam Vital Signs: Vital Signs: Last Vital Signs Temp 97.6 F 11/14/21 07:39 Pulse 51 11/14/21 07:48 Resp 18 11/14/21 07:39 BP 167/72 H 11/14/21 07:39 Pulse Ox 94 11/14/21 07:48 BMI result Body Mass Index 28.3 ?Appearance: Alert.? Oriented X3.sob seems improving.? cvs: rrr, [id number] . res: bretah sounds slightly improving , has rhonchii abd: no rebound or guarding ,nt, bs present. ext pulses present , no cyanosis . neuro: axo3 ,?She has mild weakness on the right 4/5 on the right, 5/5 on the left? General: patient oriented x3? Cranial nerves: Yes Equal, round and reactive pupils present? Cognition - normal cognition DS: Data Additional Comments Additional comments: XR/XR chest 1V IMPRESSION: Prominent right hilum and increased central bronchial markings questionable for airways disease or small infiltrate. Chest x-ray follow-up recommended. ?MR/MR head/brain wo con IMPRESSION: Small acute infarct in the right [place]alta radiata. Additional suspected subcentimeter subacute infarcts in the left thalamus and right external capsule. ? Chronic postoperative changes in the right temporal lobe. Small cortically-based area of encephalomalacia in the right frontal lobe. Moderate diffuse parenchymal volume loss and mild chronic white matter microangiopathy. CT/CT angio head neck IMPRESSION: No occlusion or hemodynamically significant stenosis within the intracranial or extracranial arterial vasculature? Discharge Plan Discharge Patient Disposition: Xfer Inpatient Rehab Fac Discharge Diagnosis: cva, mild pneumonia, copd excerebation Referrals: [facility] [Other] - 1 Week Matthew Plascencia MD [Physician] - 1 Week (follow up ourpariently) Physician,Jhonathan J [Primary Care Provider] - 1 Week Discharge Medications: New atorvastatin 40 mg Tablet 40 mg PO BEDTIME Qty: 30 RF: 0 clopidogrel 75 mg Tablet 75 mg PO DAILY Qty: 30 RF: 0 aspirin 81 mg Tablet,Delayed Release (Dr/Ec) 81 mg PO DAILY Qty: 30 RF: 0 docusate sodium 100 mg Capsule 100 mg PO DAILY PRN (Reason: Constipation) Qty: 30 RF: 0 omeprazole 20 mg Capsule,Delayed Release(Dr/Ec) 20 mg PO BID@0630,1630 Qty: 30 RF: 0 prednisone 20 mg tablet 40 mg PO DAILY Qty: 3 RF: 0 amoxicillin-pot clavulanate [Augmentin] 875-125 mg tablet 1 tab PO BID Qty: 10 RF: 0 Continued furosemide 20 mg tablet 1 tab PO DAILY RF: 0 albuterol sulfate 90 mcg/actuation HFA aerosol inhaler 2 puff inhalation Q4-6H PRN (Reason: Shortness Of Breath Or Wheezing) RF: 0 Trelegy Ellipta 100-62.5-25 mcg blister with device 1 puff inhalation DAILY RF: 0 Discharge Orders: Discharge Order (Routine); Ordered 11/14/21 Ordered By: Elver Ibrahim Diet: advance to usual diet Activity on Discharge: As tolerated Stand Alone Forms: Patient Portal Discharge page Care Plan Goals: patient admitted to the hospital because of CVA- started on aspirin, Plavix, statin in addition followed on telemetry- seems fine. Seen by Cardiology echo pending seen by PT recommended acute rehab. Seen by speech and Swallow recommended mechanical soft diet and nectar thick. Also in addition to that treated for COPD exacerbation- with nebs and steroids seems improving also added antibiotics for possible mild pneumonia. will be discharged on p.o. says steroids as well as p.o. Augmentin. Health Concerns: As above. Plan of Treatment: As above. Assessment: As above.
--- NOTE | 2021-11-14 08:30 | CA_ITS ---
Transthoracic Echocardiogram Patient (Last, First, Middle): Joy Rodriguez A Gender: Female Date of : 1935 Age: 86 Procedure Date: 11/14/2021 Procedure Type: Transthoracic [place]ocardi[place] [facility] [place]: 165.1 cm Weight: 77.11 kg BSA: 1.85 m2 Heart Rate: bpm BP: 131 / 63 mmHg Parliamentary Archivist: Referring MD: Elver Ibrahim MD Symptoms: cva Study Quality: Fair ECG Rhythm: Sinus Conclusions: - Normal left ventricular size and systolic function. - Elevated filling pressures. - Normal right ventricular cavity size and systolic function. Findings Left Ventricle Normal left ventricular size and systolic function. There is mildly increased left ventricular wall thickness. The visually estimated ejection fraction is between 60-65%. There is no evidence of regional wall motion abnormalities. Abnormal diastolic function is noted. Spectral Doppler is indicative of an impaired relaxation filling pattern. Elevated filling pressures. Right Ventricle Normal right ventricular cavity size and systolic function. Atria The left atrium is likely dilated. Aortic Valve Normal aortic valve structure and function. There is no aortic valve stenosis. There is no aortic valve regurgitation. Mitral Valve There is no mitral valve regurgitation. There is no mitral valve stenosis. Pulmonic Valve The pulmonic valve is likely normal. Tricuspid Valve Normal tricuspid valve structure and function. There is mild to moderate tricuspid valve regurgitation. Moderately elevated right atrial pressure. Mild pulmonary hypertension is present. Great Vessels There is mild dilatation of the ascending aorta measuring 3.70 cm. The visualized portions of the pulmonary artery and branches are normal. Venous The inferior vena cava is dilated and collapses less than 50% with inspiration. Pericardium/Pleural There is no evidence of pericardial effusion. Prior Study Comparison No prior study available for comparison. Measurements 2D Linear Measurements IVSd: 1.11 0.6-0.9/0.6-1.0 cm LVIDd: 4.12 3.9-5.3/4.2-5.9 cm LVIDd Index: 2.23 2.4-3.2/2.2-3.1 cm/m2 LVIDs: 2.30 2.0-3.6 cm LVPWd: 1.03 0.7-1.1 cm Ao Root: 3.70 2.1-3.5 cm LA Diam: 3.90 2.7-3.8/3.0-4.0 cm LAIDs Index: 2.11 1.5-2.3 cm/m2 LV Mass: 182.40 67-162/88-224 g LV Mass Index: 98.59 43-95/49-115 g/m2 LVOT Diam: 2.00 3.0+(-)1.3 cm Mitral Valve MV Pk E: 1.05 MV PK A: 1.14 MV Decel Time: 162.00 E/A: 0.90 E'Lateral: 7.51 E'Medial: 6.85 E/E' Med: 15.30 E/E' Lat: 14.00 PHT: 48.00 MVA PHT: 4.58 Decel [place]: 6.46 Aortic Valve AoV Pk Gilles: 1.81 AoV Mn Gilles: 1.15 AoV VTI: 0.40 AoV Pk Grad: 13.00 Aov Mn Grad: 6.00 DEDRICK Cont.VTI: 2.30 LVOT LVOT Pk Gilles: 1.31 LVOT Mn Gilles: 0.79 LVOT VTI: 0.31 LVOT Pk Grad: 7.00 LVOT Mn Grad: 3.00 LVOT Diam: 2.00 LVOT Area: 3.14 Diastolic Function MV Pk E: 1.05 MV Pk A: 1.14 E/A: 0.90 E'Medial: 6.85 E/E' Med: 15.30 E' Laterial: 7.51 E/E' Lat: 14.00 Tricuspid Valve TR Pk Gilles: 3.00 TR Pk Grad: 36.00 RVSP: 44.00 Great Vessels Aorta Ao Root-2D: 3.70 2.0-3.7 cm Ao Asc: 3.70 2.1-3.4 cm Pulmonary Valve PV Pk Gilles: 1.17 Peak PV Grad: 5.00 Updated in Other Vendor System with Status of Final Matthew Plascencia MD electronically signed on 11/14/2021 8:08:51 PM with status of Final
[2021-11-14] MEDS: Albuterol/Iprat 2.5/0.5MG 3 ML AMPUL.NEB INHALE ×2 (08:42→12:10)
[2021-11-14] MEDS: Famotidine 20 MG TABLET PO (09:46)
[2021-11-14] MEDS: Clopidogrel Bisulfate 75 MG TABLET PO (09:46)
[2021-11-14] MEDS: Aspirin Enteric Coated 81 MG TABLET.DR PO (09:46)
[2021-11-14] MEDS: Enoxaparin Sodium 40 MG/0.4 ML SYRINGE SUBCUT (09:48)
--- NOTE | 2021-11-14 12:48 | MHC.CM.PN ---
Patient has been medically cleared for dc to Acute Rehab today.Patient will dc to [facility] today at 4:30 PM, via [facility]. Patient and her Daughter/HCP/Juana at [phone] are aware of and in agreement with the dc plan.IMM addressed with Patient at bedside and original has been given to her and a copy has been placed on the chart.
[2021-11-14 13:04] LABS: COVID-19 Test Negative (Negative); IDNOW Serial# 9DD0AD1C
--- NOTE | 2021-11-14 14:09 | MHC.SL.SWA ---
Speech Pathologist Impression: Oralpharyngeal Dysphagia Risk of Aspiration Due to: Neurological Condition Dysphasia Diet Status: Upgrade Liquid Consistency and Strategies for Safe Swallow: Liquid Intake Recommendation: [place] Thick Liquid Intake Strategies: Small Sips Solid Food Consistency: Dietary Recommendations: Grnd/Mech Altered (NDD2) Additional Modifications to Solid Foods: Oral Medication Intake: Crushed with Puree Compensatory Strategies and Precautions to be Taken for Safe Swallow: Sitting Upright (90 deg) Liquids from Cup Liquids from Spoon Supervision While Eating and Drinking for Safe Swallow: Intermittent Supervision Foods to Avoid: Swallowing Recommended Treatments: Compens. Strategy Educat. Recommendation for Speech: Inpatient Speech Therapy Comment: Pt presents w/oralpharyngeal dysphagia, w/oral phase prolonged due to maladaptive mastication/bolus management (mashing w/tongue), pharyngeal phase w/sporadic delay of swallow, decreased laryngeal elevation on swallow. on 11/14: Pt seen this a.m. for repeat assessment, per request of MD, Nursing. Pt reported that she had no difficulty w/breakfast, that food was pleasant and a manageable consistency. Pt had thickened liquids still at bedside, w/consistency highly congealed. Pt shown how to thin liquids to nectar consistency, and encouraged to do that in the future with liquids if too thick. Pt was observed taking tsp of [place] thick liquid and cup sip of nectar thick liquid. On both, pt had timely oral phase, mildly reduced laryngeal transit on swallow, no clinical s/s aspiration. Pt presented w/tsp thin liquid (water), wet voice, discomfort, cough after swallow. Recommend Pt continue on recommended Diet of Ground/mechanical (NDD2) w/ [place] Thick liquids, pills CRUSHED in PUREE. Pt to be D/C to rehab facility, recommend diet continue w/these consistencies. Nursing, MD notified of recommendation by secure text. Executive Kitchen Manager Clinican/Clinical Fellow: No Supervisory Statement: I have reviewed and agree with the student/clinical fellow's documentation: N/A Speech Language Pathologist: Madeline Hughes M.A., CCC-MATERIALS BRANCH CHIEF
--- NOTE | 2021-11-14 15:51 | PC.NURSE ---
report called to [facility], report given to supervisior.
== END 2021-11-14 18:05 | DRG 65 ==
LOC: HO.ED 11-11 01:41 → HO.EDOVER 11-11 01:57 → HO.S3 11-13 18:05 → HO.EDOVER 11-20 13:54
PROVIDERS: Admitting Provider Internal Medicine; Emergency Provider Emergency Medicine; Visit Provider Internal Medicine
DX: I63.9 Cerebral infarction, unspecified (principal); J44.0 Chronic obstructive pulmonary disease with (acute) lower respiratory infection; G81.91 Hemiplegia, unspecified affecting right dominant side; R47.81 Slurred speech; R29.701 NIHSS score 1; Z20.822 Contact with and (suspected) exposure to COVID-19; Z87.891 Personal history of nicotine dependence; Z79.02 Long term (current) use of antithrombotics/antiplatelets; Z79.899 Other long term (current) drug therapy
CPT/HCPCS: 36415; 70450; 70496; 70498; 70551; 71045; 80048; 80061; 82550; 82947; 83880; 84484; 85025; 85610; 85730; 87635; 92610; 93005; 93306; 93970; 94640; 96365; 96375; 97110; 97112; 97116; 97161; 97166; 97535; 99218; 99285; J1650; J1940; J2543; J2920; Q9967

== ENCOUNTER 2021-12-05 15:51 | Inpatient (IN) | payer MEDICARE, SELFPAY ==
--- NOTE | ~2021-12-05 | CT_ITS ---
EXAMINATION: CT ANGIOGRAM NECK WITH CONTRAST CT ANGIOGRAM BRAIN WITH CONTRAST CLINICAL INFORMATION: Diplopia and aphasia. COMPARISON: Noncontrast head CT performed just prior. Brain MRI 11/11/2021. TECHNIQUE: Test bolus sequences followed by intravenous administration 100 mL of Omnipaque 350. Helical imaging was performed in the axial plane from the thoracic inlet to the skull vertex. Delayed postcontrast imaging of the head was also performed. The data was processed at the ocular care technologist workstation for generation of MIP sequences. Angled MIPs and volume rendered reformatted images were also generated at an offline 3D workstation. Stenoses are assessed in accordance with NASCET criteria unless otherwise indicated. This CT examination was performed using dose optimization techniques as appropriate, variously including the following: *Automated exposure control *Adjustment of mA and/or kV according to patient size (this includes techniques or standardized protocols for targeted exams where dose is matched to indication/reason for exam; i.e. extremities or head) *Use of iterative reconstruction technique DLP: 1525 mGy-cm FINDINGS: Head CT: There is no intracranial hemorrhage, extra-axial collection, mass effect, or acute large territory infarction. An area of chronic infarction is seen within the right temporal lobe with subjacent craniotomy changes demonstrated. Small chronic infarcts are seen in the bilateral basal ganglia and left thalamus. Background changes of chronic microangiopathy and brain parenchymal volume loss are also noted. No evidence of hydrocephalus. No abnormal enhancement. Dural venous sinuses appear patent. Neck CTA: Atheromatous changes are seen involving the aortic arch. The great vessel origins are patent. No carotid bifurcation stenosis is seen. There is short segment fusiform dilatation of the cervical segment of the right internal carotid artery with a 4.6 x 3.5 mm medially projecting pseudoaneurysm demonstrated without change from prior (series 6 image [id number]). Mild contour irregularity is also seen involving the cervical left internal carotid artery with a 2.8 mm pseudoaneurysm extending from the inferior wall of the ICA in this region (series 6 image [id number]). Both vertebral arteries are patent. Head CTA: No large vessel occlusion is seen. The bilateral intradural vertebral arteries and basilar artery are patent. The chief steward/stewardess are patent. Intracranial ICAs are patent. The ACAs and MCAs are patent. The collaterals appear symmetric. No aneurysm is seen. Non-vascular findings: No gross upper lung abnormality is seen although evaluation is limited due to artifact from motion. The cervical soft tissues are unremarkable. Multilevel degenerative changes are seen within the spine. CT/CT angio head neck stroke IMPRESSION: No intracranial hemorrhage or acute territorial infarction identified. Chronic encephalomalacia and gliosis seen in the right temporal lobe with subjacent craniotomy changes. Chronic infarcts seen in the bilateral basal ganglia and left thalamus. No large vessel occlusion. Intracranial arteries are patent. 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 This critical result was discussed with Dr. De on 12/05/2021 4:52 PM, and it was ascertained that the content and urgency of the report was understood at the time of direct communication.
--- NOTE | ~2021-12-05 | CT_ITS ---
EXAMINATION: CT HEAD WITHOUT CONTRAST (STROKE PROTOCOL) CLINICAL INFORMATION: Stroke protocol. Diplopia and aphasia COMPARISON: Previous head CT exams most recent 11/10/2021 and brain MRI 11/11/2021 TECHNIQUE: Contiguous axial imaging was performed from the skull base to vertex without intravenous administration of contrast. This CT examination was performed using dose optimization techniques as appropriate, variously including the following: *Automated exposure control *Adjustment of mA and/or kV according to patient size (this includes techniques or standardized protocols for targeted exams where dose is matched to indication/reason for exam; i.e. extremities or head) *Use of iterative reconstruction technique DLP: 707 mGy-cm FINDINGS: There is no evidence of an extra-axial collection. There is no evidence of intra or extra-axial hemorrhage. There is right temporal bone craniotomy defect and encephalomalacia of the right temporal lobe. The ventricles and extra-axial CSF spaces are prominent suggestive of generalized atrophy. There is nonspecific periventricular white matter disease. There is a left basal ganglia, bilateral thalamic and right peralta radiata lacunar infarcts of uncertain age. These appear similar to previous head CT scan. There is question of a new lacunar infarct in the left peralta radiata compared to recent exams. No mass, mass effect or hemorrhage is seen. There is atherosclerotic disease. Review at bone windows is unremarkable. CT/CT head for stroke IMPRESSION: Postoperative change/encephalomalacia the right temporal lobe. Generalized atrophy and nonspecific periventricular white matter disease. Bilateral thalamic, left basal ganglia and coronal radiata lacunar infarcts. Left peralta radiata infarct may be new in the interval from October 2021 exams. This could be better evaluated with MRI if clinically indicated. This critical result was discussed with Dr De at 1621 hours on 12/05/2021. It was ascertained that the content and urgency of the report was understood at the time of direct communication.
--- NOTE | ~2021-12-05 | US_ITS ---
EXAMINATION: US VENOUS ULTRASOUND WITH DOPPLER LOWER EXTREMITY, BILATERAL CLINICAL INFORMATION: Swelling COMPARISON: Previous exam October 2021 TECHNIQUE: Ultrasound of the deep veins is performed from the hip to the calf with compression sonography and color and pulse Doppler assessment. Spectral analysis with color-flow imaging is performed. FINDINGS: RIGHT: There is normal venous compression and respiratory variation and augmented flow. The visualized common femoral vein, superficial femoral vein, profunda femoral vein, popliteal vein, and the trifurcation region shows no evidence of deep venous thrombosis. There is no significant popliteal fossa cyst. LEFT: There is normal venous compression and respiratory variation and augmented flow. The visualized common femoral vein, superficial femoral vein, profunda femoral vein, popliteal vein, and the trifurcation region shows no evidence of deep venous thrombosis. There is a 3.8 x 0.7 x 1.8 cm Aviles's cyst. . US/US venous duplex LE BI IMPRESSION: No DVT demonstrated in the bilateral lower extremity. Left Aviles's cyst.
--- NOTE | ~2021-12-05 | MR_ITS ---
EXAMINATION: MR BRAIN WITHOUT CONTRAST CLINICAL INFORMATION: TIA. Diplopia and aphasia indication on recent CT angiogram. COMPARISON: CT dated 11/30/2021. TECHNIQUE: Multiplanar, multisequence imaging of the brain was performed without contrast. FINDINGS: Right-sided craniotomy changes again evident with chronic cystic encephalomalacia in the right temporal pole. There is surrounding gliosis in the right temporal lobe with ex vacuo dilatation of the temporal horn of the right lateral ventricle. Small cortically-based area of cystic encephalomalacia and gliosis in the right middle frontal gyrus as well. There is a curvilinear focus of diffusion signal abnormality in the region of the left optic radiations and posterior left temporal stem. There are additional small foci of diffusion signal abnormality in the peralta radiata bilaterally, more so on the right side without an imaging correlate on the ADC map, which are T2 bright and likely represent shine through phenomenon from chronic infarcts. No mass effect or midline shift is seen. Mild chronic white matter microangiopathic changes evident with moderate diffuse parenchymal volume loss and concordant ex vacuo dilatation of the ventricles. There are milder small vessel ischemic changes in the linda. No extra-axial fluid collections are seen. There are additional small chronic infarcts in the cerebellum. The gradient refocused acquisition is normal. The craniovertebral junction, marrow signal, and midline structures are normal. The major intracranial flow voids at the level of the [place] are preserved. The dural venous sinus flow voids are maintained. The mastoid air cells and paranasal sinuses are fairly well aerated. MR/MR head/brain wo con IMPRESSION: 1. Small curvilinear focus of restricted diffusion in the region of the left optic radiations and posterior left temporal stem, suspected to represent an acute infarct. No hemorrhagic conversion. 2. Small chronic infarcts in the peralta radiata bilaterally and in the cerebellum. Mild chronic white matter microangiopathy and moderate diffuse parenchymal volume loss. 3. Chronic postoperative changes with cystic encephalomalacia and gliosis in the right temporal pole. Ex vacuo dilatation of the temporal horn of the right lateral ventricle. Small cortically-based area of encephalomalacia, right middle frontal gyrus.
[2021-12-05 16:01] VITALS: BP 146/76; PULSE 78; O2SAT 96
--- NOTE | 2021-12-05 16:02 | ECG_ITS ---
Test Reason : stroke symptoms Blood Pressure : / mmHG Vent. Rate : 073 BPM Atrial Rate : 073 BPM P-R Int : 144 ms QRS Dur : 074 ms QT Int : 392 ms P-R-T Axes : 072 020 052 degrees QTc Int : 431 ms Normal sinus rhythm Junctional ST depression, probably normal Borderline ECG When compared with ECG of 10-NOV-2021 22:26, No significant change was found Referred By: Joe De Electronically Signed By:Matthew Plascencia
[2021-12-05 16:04] VITALS: RESP 18; BMI 27.4
--- NOTE | 2021-12-05 16:08 | ED_ITS ---
HPI - Neuro Symptoms/Deficit General Chief Complaint: Stroke Stated Complaint: double vision Time Seen by Provider: 12/05/21 16:00 Source: patient, EMS and old records reviewed History of Present Illness HPI Narrative: Patient with sudden onset of diplopia approximately 1 hour prior to arrival. Last known well time was at time of symptom discovery. She also at that time was having difficulty speaking per family. Her speech is improved but is not yet back to baseline. Her recent history significant for hospitalization 3 weeks ago for COPD exacerbation complicated by stroke. The symptoms at that time were also difficulty speaking but also some right leg weakness. CT scan was normal and showed no evidence of hemorrhage but MRI did show several areas of small acute stroke including thalamic stroke. She was not in atrial fibrillation at the time. She was started on aspirin and Plavix and a statin a discharge to rehab where she returned home yesterday. Today she was having physical therapy and was at her baseline. At the end of physical therapy session is when her symptoms started. It was a witnessed start to her symptoms. She denies headache. She complains of diplopia when looking at objects in the distance or off to the right. She denies arm or leg weakness this time. She did not have any vision changes noted on her last visit. Related Data Home Medications Medication Instructions Recorded Confirmed albuterol sulfate 90 mcg/actuation 2 puff INHALATION Q4-6H PRN 11/11/21 11/11/21 aerosol inhaler fluticasone fur. 100 mcg-umeclid 1 puff INHALATION DAILY 11/11/21 11/11/21 62.5 mcg-vilant 25 mcg inhalat.powder (Trelegy Ellipta) furosemide 20 mg tablet 1 tab PO DAILY 11/11/21 11/11/21 Previous Rx's Medication Instructions Recorded amoxicillin 875 mg-potassium 1 tab PO BID #10 tab 11/14/21 clavulanate 125 mg tablet (Augmentin) aspirin 81 mg tablet,delayed 81 mg PO DAILY #30 tab 11/14/21 release atorvastatin 40 mg tablet 40 mg PO BEDTIME #30 tab 11/14/21 clopidogrel 75 mg tablet 75 mg PO DAILY #30 tab 11/14/21 docusate sodium 100 mg capsule 100 mg PO DAILY PRN #30 cap 11/14/21 omeprazole 20 mg capsule,delayed 20 mg PO BID@0630,1630 #30 cap 11/14/21 release prednisone 20 mg tablet 40 mg PO DAILY #3 tab 11/14/21 Allergies Allergy/AdvReac Type Severity Reaction Status Date / Time No Known Allergies Allergy Verified 11/10/21 22:06 Review of Systems Constitutional: Comments: No fevers chills or myalgias Eyes: Comments: Diplopia Cardiovascular: Comments: No chest pain or palpitation Respiratory: Comments: No dyspnea or cough Gastrointestinal: Comments: No nausea vomiting diarrhea or abdominal pain Musculoskeletal: Comments: No arm or leg pain Integumentary/Breasts: Comments: No rash Neurologic: Comments: Symptoms as described above FOR[facility]LY [facility], [facility] Past Medical History Medical History (Updated 12/05/21 @ 20:06 by Joe De MD) COPD (chronic obstructive pulmonary disease) Surgical History No pertinent past surgical history Social History Social History Household Members: None Household Members Other:: daughter, son live near Housing: [facility] Do you presently have visiting nurse or other home services: No Alcohol intake: never Patient Tobacco Use Status: Former Tobacco user Smoked in Last 30 Days: No Use of substances other than those prescribed or required for medical reasons: No Advance Directives: Yes Advance Directives Information Provided: No Advance Directives on File: No service: No Current occupational status: retired Physical Exam Vital Signs: Vital Signs: Last Vital Signs Pulse 72 12/05/21 16:44 Resp 18 12/05/21 16:44 BP 121/90 H 12/05/21 16:44 Pulse Ox 94 12/05/21 16:44 BMI result Body Mass Index 25.0 Const: Other: Awake and alert no acute distress HENMT: Other: No obvious facial droop Eyes: Other: Right eye with LR 6 type all the with dysconjugate gaze on right lateral gaze. Neck: Other: No neck pain. No bruits Resp: Other: Clear and equal bilaterally without wheezes rales or rhonchi Cardio: Other: Regular rate and rhythm without murmurs rubs or gallops GI: Other: Soft nontender nondistended Skin: Other: Warm pink and dry without rash Neuro: Other: Patient with difficulty word finding. She is able to work fine but after several seconds. This is apparently not her baseline according to the patient. No arm or leg weakness. 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 Received call from radiology. Plain CT shows areas of infarcts noted on her prior visit. Possible new area of infarct as well. But no intracranial hemorrhage. Due to her recent stroke, she is not a thrombolytic candidate. Await CT angiography for evaluation of potential large vessel occlusion 20:04. 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 These findings were seen on the CT scan from October as well. The findings were discussed with [facility]. There is no indication for endovascular therapy. While hospitalized patient for further treatment and intervention. Will order an aspirin. MDM - Neuro Symptoms/Deficit Lab Data Result diagrams: 12/05/21 16:39 12/05/21 18:05 Labs: Lab Results 12/05/21 12/05/21 12/05/21 Range/Units 16:24 16:26 16:39 WBC 8.3 (4.8-10.8) X10*3/uL RBC 3.46 L (4.20-5.50) X10*6/uL Hgb 9.5 L (12.0-16.0) g/dl Hct 30.7 L (37.0-47.0) % MCV 88.7 (80.0-98.0) fL MCH 27.5 (27.0-33.0) pg MCHC 30.9 L (31.0-35.0) g/dl RDW 15.1 (11.0-16.0) % Plt Count 282 (160-400) X10*3/uL MPV 9.0 L (9.4-12.3) fL Immature Gran % (Auto) 0.8 H (0.0-0.4) % Neut % (Auto) 90.0 H (45-73) % Lymph % (Auto) 3.3 L (20-40) % Henderson % (Auto) 5.5 (2-11) % Eos % (Auto) 0.2 (0-4) % Baso % (Auto) 0.2 (0-2) % Lymph # (Auto) 0.3 L (1.2-4.9) X10*3/uL Henderson # (Auto) 0.5 (0.1-1.2) X10*3/uL Eos # (Auto) 0.0 (0.0-0.4) X10*3/uL Baso # (Auto) 0.0 (0.0-0.2) X10*3/uL Abs Immat Gran (auto) 0.07 H (0.00-0.03) X10*3/uL Absolute Neuts (auto) 7.5 (2.0-8.3) x10*3/uL Absolute Nucleated RBC 0.000 (0.0-0.012) X10*3/uL Nucleated RBC % (auto) 0.0 (0.0-0.2) /100WBC PT (9.9-13.0) SEC Whole Blood PT 13.9 H (11.1-13.5) sec INR (0.9-1.1) Whole Blood INR 1.2 H (0.9-1.1) Sodium (135-145) mmol/L Potassium (3.3-5.1) mmol/L Chloride (96-108) mmol/L Carbon Dioxide (22-29) mmol/L Anion Gap (12-20) BUN (9-16) mg/dL Creatinine (0.5-1.4) mg/dL Estim Creat Clear Calc Estimated GFR POC Glucose 86 (60-115) mg/dL Random Glucose (60-115) mg/dL Calcium (8.4-10.2) mg/dL Total Bilirubin (0.0-1.0) mg/dL AST (5-31) U/L ALT (0-31) U/L Alkaline Phosphatase (39-117) U/L Total Protein (6.5-8.0) g/dL Albumin (3.5-5.0) g/dL COVID-19 (AFSANEH) (Negative) COVID-19 Clin Com 12/05/21 12/05/21 12/05/21 Range/Units 16:39 16:41 18:05 WBC (4.8-10.8) X10*3/uL RBC (4.20-5.50) X10*6/uL Hgb (12.0-16.0) g/dl Hct (37.0-47.0) % MCV (80.0-98.0) fL MCH (27.0-33.0) pg MCHC (31.0-35.0) g/dl RDW (11.0-16.0) % Plt Count (160-400) X10*3/uL MPV (9.4-12.3) fL Immature Gran % (Auto) (0.0-0.4) % Neut % (Auto) (45-73) % Lymph % (Auto) (20-40) % Henderson % (Auto) (2-11) % Eos % (Auto) (0-4) % Baso % (Auto) (0-2) % Lymph # (Auto) (1.2-4.9) X10*3/uL Henderson # (Auto) (0.1-1.2) X10*3/uL Eos # (Auto) (0.0-0.4) X10*3/uL Baso # (Auto) (0.0-0.2) X10*3/uL Abs Immat Gran (auto) (0.00-0.03) X10*3/uL Absolute Neuts (auto) (2.0-8.3) x10*3/uL Absolute Nucleated RBC (0.0-0.012) X10*3/uL Nucleated RBC % (auto) (0.0-0.2) /100WBC PT 13.3 H (9.9-13.0) SEC Whole Blood PT (11.1-13.5) sec INR 1.2 H (0.9-1.1) Whole Blood INR (0.9-1.1) Sodium 138 (135-145) mmol/L Potassium 3.9 (3.3-5.1) mmol/L Chloride 104 (96-108) mmol/L Carbon Dioxide 27 (22-29) mmol/L Anion Gap 11 L (12-20) BUN 15 (9-16) mg/dL Creatinine 0.98 (0.5-1.4) mg/dL Estim Creat Clear Calc 38.5 Estimated GFR 54 POC Glucose (60-115) mg/dL Random Glucose 91 (60-115) mg/dL Calcium 8.1 L (8.4-10.2) mg/dL Total Bilirubin 1.1 H (0.0-1.0) mg/dL AST 13 (5-31) U/L ALT 13 (0-31) U/L Alkaline Phosphatase 72 (39-117) U/L Total Protein 4.8 L (6.5-8.0) g/dL Albumin 2.8 L (3.5-5.0) g/dL COVID-19 (AFSANEH) Negative (Negative) COVID-19 Clin Com See Note Discharge Plan Discharge Patient Disposition: Admitted As Inpatient Prescriptions: No Action furosemide 20 mg tablet 1 tab PO DAILY 0RF albuterol sulfate 90 mcg/actuation HFA aerosol inhaler 2 puff inhalation Q4-6H PRN (Reason: Shortness Of Breath Or Wheezing) 0RF Trelegy Ellipta 100-62.5-25 mcg blister with device 1 puff inhalation DAILY 0RF atorvastatin 40 mg Tablet 40 mg PO BEDTIME Qty: 30 0RF clopidogrel 75 mg Tablet 75 mg PO DAILY Qty: 30 0RF aspirin 81 mg Tablet,Delayed Release (Dr/Ec) 81 mg PO DAILY Qty: 30 0RF docusate sodium 100 mg Capsule 100 mg PO DAILY PRN (Reason: Constipation) Qty: 30 0RF omeprazole 20 mg Capsule,Delayed Release(Dr/Ec) 20 mg PO BID@0630,1630 Qty: 30 0RF prednisone 20 mg tablet 40 mg PO DAILY Qty: 3 0RF amoxicillin-pot clavulanate [Augmentin] 875-125 mg tablet 1 tab PO BID Qty: 10 0RF
[2021-12-05] MEDS: iohexoL 350 MG/ML 100 ML INFUS..BTL IV (16:14)
[2021-12-05 16:27] VITALS: BMI 25.0
--- NOTE | 2021-12-05 16:29 | MHC.STROKE ---
Addendum entered by Shanna Rich RN 12/06/21 15:47: I MET WITH THE PATIENT AGAIN ONCE SHE WENT TO HER ROOM. I REVIEWED THE STROKE EDUCATION BOOKLET AND ANSWERED HER QUESTIONS. I ALSO REVIEWED THE NEW STROKE ON THE MRI SCREEN SHOT I BROUGHT. WE ALSO TALKED ABOUT WHY SHE NEEDS ANTICOAGULATION. SHE WAS TIRED AND SAID SHE HAS SPOKEN TO SO MANY PEOPLE THAT SHE WILL REQUIRE REINFORCEMENT WITH THE FAMILY. Original Note: 1546 EMS PRE-NOTIFIED STROKE ALERT , ARRIVED 1551. STROKE PROTOCOL ACTIVATED AND I WAS NOTIFIED BY THE ED. SYMPTOMS APPROXIMATELY 1HR AGO, SEE ED MD NOTE. PATIENT JANAK TO STROKE SERVICE, SHE WAS HERE FROM 11/10/21-11/11/21 FOR ACUTE AND SUBACUTE STROKES, LEFT THALMUS AND RIGHT CORTICAL AREA. SHE WENT TO [facility] FOR REHAB ON 11/14/21. SHE IS EXCLUDED FROM [facility] BASED ON RECENT STROKE. CT HEAD AND CTA H/N ORDERED. [PRIOR CTA H/N DONE ON 11/11/21 DIID NOT REVEAL ANY LVO]. I WILL CONTINUE TO FOLLOW. KEEP NPO UNTIL SWALLOW SCREEN. DR BREWER IS LAB ENGINEER AND HE SAW HER DURING HER PREVIOUS ADMISSION.
[2021-12-05 16:38] LABS: Glucose, Whole Blood 86 mg/dL (60-115)
[2021-12-05 16:44] VITALS: BP 121/90; PULSE 72; RESP 18; O2SAT 94
[2021-12-05 16:44] LABS: Basophils Percent Auto 0.2 % (0-2); Eosinophils Percent Auto 0.2 % (0-4); Hematocrit 30.7 % (37.0-47.0); Hemoglobin 9.5 g/dl (12.0-16.0); Imm Gran Abs Auto 0.07 X10*3/uL (0.00-0.03); Imm Gran Pct Auto 0.8 % (0.0-0.4); Lymphocytes Absolute Auto 0.3 X10*3/uL (1.2-4.9); Lymphocytes Percent Auto 3.3 % (20-40); MANUAL DIFF FLAG NO; Mean Corpuscular HGB Conc 30.9 g/dl (31.0-35.0); Mean Corpuscular Hemoglobin 27.5 pg (27.0-33.0); Mean Corpuscular Volume 88.7 fL (80.0-98.0); Monocytes Absolute Auto 0.5 X10*3/uL (0.1-1.2); Monocytes Percent Auto 5.5 % (2-11); Neutrophils Absolute Auto 7.5 x10*3/uL (2.0-8.3); Platelet Count 282 X10*3/uL (160-400); Red Blood Count 3.46 X10*6/uL (4.20-5.50); Red Cell Distribution Width 15.1 % (11.0-16.0); White Blood Count 8.3 X10*3/uL (4.8-10.8)
[2021-12-05 16:50] LABS: Prothrombin Time Whole Bld POC 13.9 sec (11.1-13.5); ~PT, ~INR - Anti Coag Clinic 1.2 (0.9-1.1)
[2021-12-05 16:53] LABS: INTERNATIONAL NORM RATIO 1.2 (0.9-1.1); Prothrombin Time 13.3 SEC (9.9-13.0)
[2021-12-05 17:05] LABS: COVID-19 Test Negative (Negative); IDNOW Serial# 9DD0AD1C
--- NOTE | 2021-12-05 17:52 | PC.NURSE ---
STAT STROKE CHEM taking 1 hr. Per lab, Chem hemolyized. Per lab, spoke to monique, hemolyzation was called to Renia or isabel. No pneumonics were given by individual who took call.
[2021-12-05 18:51] LABS: Alanine Aminotransferase 13 U/L (0-31); Albumin Level 2.8 g/dL (3.5-5.0); Alkaline Phosphatase 72 U/L (39-117); Anion Gap 11 (12-20); Aspartate Amino Transferase 13 U/L (5-31); Bilirubin Total 1.1 mg/dL (0.0-1.0); Blood Urea Nitrogen 15 mg/dL (9-16); Calcium 8.1 mg/dL (8.4-10.2); Carbon Dioxide 27 mmol/L (22-29); Chloride 104 mmol/L (96-108); Creatinine Clr Calc Pharmacy 38.5; Estimated Glomerular Filt Rate 54; Glucose Random 91 mg/dL (60-115); Potassium 3.9 mmol/L (3.3-5.1); Sodium 138 mmol/L (135-145); Total Protein 4.8 g/dL (6.5-8.0)
--- NOTE | 2021-12-05 20:47 | PHA.MEDREC ---
Pharmacy Consult ? Medication Reconciliation Pharmacy has completed the medication reconciliation.
--- NOTE | 2021-12-05 21:30 | PM.IMHP ---
History of Present Illness Date of Service: 12/05/21 Chief Complaint: fall, slurred speech Is a an 86-year-old female with past medical history of COPD and recently diagnosed CVA in October presents to the hospital with complaints fall as well as slow speech as well as vision problems. History is obtained mostly from her daughter at and swell as [id number] over the phone, patient was sleeping when I saw her, I woke her she was able to answer questions appropriately but had some difficulty remembering why she was brought into the hospital and was slow to respond. According to the daughter, the patient has been doing really well with speech therapy as well as PT, but earlier in the day when they called her she told him that she was on the floor after experiencing a fall. She denied loss of consciousness, no head trauma but was sitting on the floor for 4 hours before her family called her. When her family arrived they noticed that she had progressively worsening speech and difficulty finding words and her daughter also noticed that patient had balance and gait problems. patient admitted to double vision to her daughter. Therefore they called EMS and brought patient to the ED for concern of stroke. Patient herself denies any headache, no numbness or tingling, no change in her speech, she does report Double vision with her reading glasses on but otherwise is alert to self and place. She denies any chest pain, no abdominal pain, no headache, no urinary symptoms and no lower extremity edema. On arrival to the ED patient hemodynamically stable with no significant abnormal vitals Labs are significant for WBC count of 8.3, hemoglobin of 9.5 which has dropped from 11.2 on previous admission, head CT shows postoperative changes/ encephalomalacia in the right temporal lobe, generalized atrophy and nonspecific periventricular white matter disease, bilateral thalamic left basal ganglia and coronal radiata lacunar infarcts, left cornea radiata infarct may be new in the interval from October 2021. Patient already on 40 mg of atorvastatin, Plavix, aspirin from previous admission for CVA will admit for further management Review of Systems Review of Systems: Yes all other systems are reviewed and are negative [facility] Medical History (Updated 12/06/21 @ 05:43 by Jaison Bran MD) COPD (chronic obstructive pulmonary disease) Stroke (cerebrum) Family History (Updated 12/06/21 @ 05:42 by Jaison Bran MD) Other No family history of cerebrovascular accident (CVA) Surgical History No pertinent past surgical history Social History Household Members: None Household Members Other:: daughter, son live near Housing: [facility] Do you presently have visiting nurse or other home services: No Alcohol intake: never Patient Tobacco Use Status: Former Tobacco user Smoked in Last 30 Days: No Use of substances other than those prescribed or required for medical reasons: No Advance Directives: Yes Advance Directives Information Provided: No Advance Directives on File: No service: No Current occupational status: retired [employer] Allergies Allergy/AdvReac Type Severity Reaction Status Date / Time No Known Allergies Allergy Verified 11/10/21 22:06 Active Medications: Current Medications Acetaminophen (Acetaminophen 325 Mg Tablet) 650 mg PO Q6H PRN PRN Reason: Pain, Mild (Pain Scale 1-3) Albuterol Sulfate (Albuterol Sulfate 90 Mcg 8 Gm Inhaler) 2 puff INHALE Q4-6H PRN PRN Reason: Shortness Of Breath Or Wheezing Aspirin (Aspirin Enteric Coated 81 Mg Tablet.) 81 mg PO DAILY [facility] Atorvastatin Calcium (Atorvastatin Calcium 40 Mg Tablet) 40 mg PO BEDTIME JEFF Clopidogrel Bisulfate (Clopidogrel Bisulfate 75 Mg Tablet) 75 mg PO DAILY [facility] Docusate Sodium (Docusate Sodium 100 Mg Capsule) 100 mg PO DAILY PRN PRN Reason: Constipation Docusate Sodium (Docusate Sodium 100 Mg Capsule) 100 mg PO DAILY PRN PRN Reason: Constipation Furosemide (Furosemide 20 Mg Tablet) 20 mg PO DAILY [facility]; Protocol Non-Formulary Medication (Kyeelsxtcej-Zwelyhgpt-Ylvlvlcn [Trelegy Ellipta]) 1 puff INHALE DAILY [facility] Omeprazole (Omeprazole 20 Mg Capsule.) 20 mg PO BID@0630,1630 [facility] Ondansetron HCl (Ondansetron Hcl 4 Mg/2 Ml Vial) 4 mg IVPUSH Q8H PRN PRN Reason: Nausea and Vomiting Home Medications Medication Instructions Recorded Confirmed Last Taken Type albuterol sulfate 90 mcg/actuation 2 puff INHALATION Q4-6H PRN 11/11/21 12/05/21 Unknown History aerosol inhaler fluticasone fur. 100 mcg-umeclid 1 puff INHALATION DAILY 11/11/21 12/05/21 12/05/21 History 62.5 mcg-vilant 25 mcg inhalat.powder (Trelegy Ellipta) furosemide 20 mg tablet 1 tab PO DAILY 11/11/21 12/05/21 12/05/21 History Physical Exam Vital Signs and Narrative: Vital Signs: Last Vital Signs Pulse 72 12/05/21 16:44 Resp 18 12/05/21 16:44 BP 121/90 H 12/05/21 16:44 Pulse Ox 94 12/05/21 16:44 BMI result Body Mass Index 25.0 Const: General: cooperative and no acute distress Eyes: General: appearance normal, both eyes and all related structures Pupils: Equal, round and reactive pupils present Resp: Effort & Inspection: normal respiratory effort Auscultation: clear to auscultation bilaterally Cardio: Rate: regular rate Rhythm: regular rhythm GI: Palpation (GI): Soft to palpation Auscultation: normal bowel sounds Skin: General skin exam: no rashes or lesions noted Neuro: Other: oriented to self and place, has word-finding difficulty, delayed speech, strength 5/5 in all extremities, denied diplopia Cranial nerves: Yes Equal, round and reactive pupils present Extrem: General: Yes normal to inspection and Yes no pedal edema Results Labs CBC and Chem 7: 12/05/21 16:39 12/05/21 18:05 Labs: Laboratory Results - last 24 hr 12/05/21 12/05/21 12/05/21 16:24 16:26 16:39 MCV 88.7 MCH 27.5 MCHC 30.9 L RDW 15.1 Plt Count 282 MPV 9.0 L Immature Gran % (Auto) 0.8 H Neut % (Auto) 90.0 H Lymph % (Auto) 3.3 L Chase % (Auto) 5.5 Eos % (Auto) 0.2 Baso % (Auto) 0.2 Lymph # (Auto) 0.3 L Chase # (Auto) 0.5 Eos # (Auto) 0.0 Baso # (Auto) 0.0 Abs Immat Gran (auto) 0.07 H Absolute Neuts (auto) 7.5 Absolute Nucleated RBC 0.000 Nucleated RBC % (auto) 0.0 PT Whole Blood PT 13.9 H INR Whole Blood INR 1.2 H Anion Gap Estim Creat Clear Calc Estimated GFR POC Glucose 86 Random Glucose Calcium Total Bilirubin AST ALT Alkaline Phosphatase Total Protein Albumin COVID-19 (AFSANEH) COVID-19 Clin Com 12/05/21 12/05/21 12/05/21 16:39 16:41 18:05 MCV MCH MCHC RDW Plt Count MPV Immature Gran % (Auto) Neut % (Auto) Lymph % (Auto) Chase % (Auto) Eos % (Auto) Baso % (Auto) Lymph # (Auto) Chase # (Auto) Eos # (Auto) Baso # (Auto) Abs Immat Gran (auto) Absolute Neuts (auto) Absolute Nucleated RBC Nucleated RBC % (auto) PT 13.3 H Whole Blood PT INR 1.2 H Whole Blood INR Anion Gap 11 L Estim Creat Clear Calc 38.5 Estimated GFR 54 POC Glucose Random Glucose 91 Calcium 8.1 L Total Bilirubin 1.1 H AST 13 ALT 13 Alkaline Phosphatase 72 Total Protein 4.8 L Albumin 2.8 L COVID-19 (AFSANEH) Negative COVID-19 Clin Com See Note Imaging Radiologist's Impressions: Impressions Head CT 12/05/21 16:07 IMPRESSION: Postoperative change/encephalomalacia the right temporal lobe. Generalized atrophy and nonspecific periventricular white matter disease. Bilateral thalamic, left basal ganglia and coronal radiata lacunar infarcts. Left peralta radiata infarct may be new in the interval from October 2021 exams. This could be better evaluated with MRI if clinically indicated. This critical result was discussed with Dr De at 1621 hours on 12/05/2021. It was ascertained that the content and urgency of the report was understood at the time of direct communication. Head/Neck CTA 12/05/21 16:15 IMPRESSION: No intracranial hemorrhage or acute territorial infarction identified. Chronic encephalomalacia and gliosis seen in the right temporal lobe with subjacent craniotomy changes. Chronic infarcts seen in the bilateral basal ganglia and left thalamus. No large vessel occlusion. Intracranial arteries are patent. 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 This critical result was discussed with Dr. De on 12/05/2021 4:52 PM, and it was ascertained that the content and urgency of the report was understood at the time of direct communication. Assessment and Plan (1) CVA (cerebral vascular accident): Status: Acute (2) Stroke (cerebrum): Status: Acute Plan 86-year-old female with past medical history of COPD with a recent diagnosis of stroke in October presents to the hospital with new findings of CVA # acute CVA - likely embolic - had stroke in October and is on high-dose statin, aspirin and Plavix - patient was to follow-up with Cardiology for Holter monitor but did not get a chance due to bad weather - CT head shows possible new infarct in the left peralta radiata which is new from October 2021 - will continue above medication, admit to telemetry, - will obtain MRI of the brain, neurology consult, PT OT and speech - No evidence of arrhythmia on EKG - patient will likely need Holter monitor before discharge # COPD - not in exacerbation - continue home inhalers # GERD - continue omeprazole DVT prophylaxis: Lovenox Quality Stroke Does the patient have a stroke diagnosis?: No VTE Prior VTE?: No VTE Risk Level:: Medical - moderate - high VTE Device Contraindication: Treatment Not Indicated VTE Drug Contraindication: N/A - Med Ordered
[2021-12-05 22:26] VITALS: BP 115/44; PULSE 56; RESP 12; TEMP 36.8; O2SAT 94
[2021-12-06] VITALS (9 sets, daily range): BP systolic 111–130; BP diastolic 42–109; PULSE 54–68; RESP 15–18; TEMP 36.6–37.1; O2SAT 94–96
--- NOTE | 2021-12-06 01:27 | PC.NURSE ---
pt a&o, denies any sob or chest pain. pt able to follow command and neuro check completed. Complete swallow evaluation from prior shift.
--- NOTE | 2021-12-06 01:33 | PC.NURSE ---
pt was able to talorate a teaspoon of water unable to tolerate anything more than that. Pt will remain NPO
[2021-12-06] MEDS: Enoxaparin Sodium 40 MG/0.4 ML SYRINGE SUBCUT (06:16)
[2021-12-06 06:52] LABS: Appearance Urine HAZY; Color Urine YELLOW; Glucose Urine UA NEG (NEG); Leukocyte Esterase Urine NEG (NEG); Nitrite Urine NEG (NEG); PH 5.5 (5.0-8.0); Specific Gravity - Urine 1.015 (1.005-1.025); UACC Culture Trigger NO; Urine Blood 2+ (NEG); Urine Ketones 5 MG/DL (NEG); Urine Protein TRACE MG/DL (NEG-TRACE)
[2021-12-06 07:05] LABS: WBC Urine 0-2 /HPF (0-4)
[2021-12-06 07:06] LABS: Mucus Urine TRACE /LPF; Renal Epithelial Cells Urine TRACE /LPF; Squamous Epithelial Cell Urine 1+ /LPF
[2021-12-06 07:37] LABS: MANUAL DIFF FLAG NO
[2021-12-06 07:42] LABS: Basophils Percent Auto 0.4 % (0-2); Eosinophils Absolute Auto 0.4 X10*3/uL (0.0-0.4); Hematocrit 31.2 % (37.0-47.0); Hemoglobin 9.8 g/dl (12.0-16.0); Imm Gran Abs Auto 0.04 X10*3/uL (0.00-0.03); Imm Gran Pct Auto 0.6 % (0.0-0.4); Lymphocytes Absolute Auto 0.3 X10*3/uL (1.2-4.9); Lymphocytes Percent Auto 4.7 % (20-40); Mean Corpuscular HGB Conc 31.4 g/dl (31.0-35.0); Mean Corpuscular Hemoglobin 27.8 pg (27.0-33.0); Mean Corpuscular Volume 88.4 fL (80.0-98.0); Mean Platelet Volume 9.2 fL (9.4-12.3); Monocytes Absolute Auto 0.5 X10*3/uL (0.1-1.2); Monocytes Percent Auto 7.2 % (2-11); Neutrophils Absolute Auto 5.8 x10*3/uL (2.0-8.3); Neutrophils Percent Auto 82.1 % (45-73); Platelet Count 298 X10*3/uL (160-400); Red Blood Count 3.53 X10*6/uL (4.20-5.50); Red Cell Distribution Width 15.3 % (11.0-16.0); White Blood Count 7.1 X10*3/uL (4.8-10.8)
--- NOTE | 2021-12-06 07:45 | PC.NURSE ---
Checked in and assessed patient, denies pain, repositioned for comfort.
[2021-12-06 08:05] LABS: Anion Gap 12 (12-20); Blood Urea Nitrogen 16 mg/dL (9-16); Calcium 8.3 mg/dL (8.4-10.2); Carbon Dioxide 27 mmol/L (22-29); Chloride 105 mmol/L (96-108); Creatinine Clr Calc Pharmacy 40.6; Estimated Glomerular Filt Rate 57; Glucose Random 68 mg/dL (60-115); Sodium 140 mmol/L (135-145)
[2021-12-06 08:07] LABS: Cholesterol 135 mg/dL; HDL Cholesterol 44 mg/dL; LDL Cholesterol Calculated 74 mg/dl; Triglycerides 89 mg/dL
[2021-12-06 08:46] LABS: Ferritin 261 ng/mL (10-250)
--- NOTE | 2021-12-06 09:47 | P.CONCA_ITS ---
History of Present Illness History of Present Illness Date of Service: 12/06/21 Requesting physician: Jaison Bran Chief complaint: CVA Narrative: 86-year-old female who was recently seen at [facility] for CVA and was sent home on aspirin and Plavix. She is now presenting because she was walking and then found herself on the floor. She does not remember how that happened. She does not recall passing out. She was complaining of right leg weakness. Previously we did not see any atrial fibrillation on telemetry. There was a plan to do outpatient to monitor but it appears it has not happened yet. CT scan of head has shown multiple areas of old strokes. Left coronal radiata infarct was thought to be new compared to November 18 examination and an MRI was recommended. She is denying any symptoms right now. On last admission she had COPD e xacerbation but currently breathing is good and she is denying any shortness of breath or chest discomfort. [facility] Past Medical History Medical History (Updated 12/06/21 @ 11:42 by Naty Pearce MD) COPD (chronic obstructive pulmonary disease) Stroke (cerebrum) Family History Family History (Updated 12/06/21 @ 05:42 by Jaison Bran MD) Other No family history of cerebrovascular accident (CVA) Surgical History Surgical History No pertinent past surgical history Social History Social History Household Members: None Household Members Other:: daughter, son live near Housing: [facility] Do you presently have visiting nurse or other home services: No Alcohol intake: never Patient Tobacco Use Status: Former Tobacco user Smoked in Last 30 Days: No Use of substances other than those prescribed or required for medical reasons: No Advance Directives: Yes Advance Directives Information Provided: No Advance Directives on File: No service: No Current occupational status: retired Meds Allergies Allergy/AdvReac Type Severity Reaction Status Date / Time No Known Allergies Allergy Verified 11/10/21 22:06 Active Medications: Current Medications Acetaminophen (Acetaminophen 325 Mg Tablet) 650 mg PO Q6H PRN PRN Reason: Pain, Mild (Pain Scale 1-3) Albuterol Sulfate (Albuterol Sulfate 90 Mcg 8 Gm Inhaler) 2 puff INHALE Q4H PRN PRN Reason: Shortness Of Breath Or Wheezing Aspirin (Aspirin Enteric Coated 81 Mg Tablet.) 81 mg PO DAILY [facility] Last Admin: 12/06/21 08:06 Dose: Not Given Documented by: Atorvastatin Calcium (Atorvastatin Calcium 40 Mg Tablet) 40 mg PO BEDTIME [facility] Last Admin: 12/06/21 01:12 Dose: Not Given Documented by: Clopidogrel Bisulfate (Clopidogrel Bisulfate 75 Mg Tablet) 75 mg PO DAILY [facility] Last Admin: 12/06/21 08:06 Dose: Not Given Documented by: Docusate Sodium (Docusate Sodium 100 Mg Capsule) 100 mg PO DAILY PRN PRN Reason: Constipation Docusate Sodium (Docusate Sodium 100 Mg Capsule) 100 mg PO DAILY PRN PRN Reason: Constipation Enoxaparin Sodium (Enoxaparin Sodium 40 Mg/0.4 Ml Syringe) 40 mg SUBCUT Q24H [facility] Last Admin: 12/06/21 06:16 Dose: 40 mg Documented by: Fluticasone/Vilanterol (Fluticasone/Vilanterol 100/25 Blst.W.Dev) 1 puff INHALE RDAILY [facility] Last Admin: 12/06/21 08:02 Dose: Not Given Documented by: Furosemide (Furosemide 20 Mg Tablet) 20 mg PO DAILY [facility]; Protocol Last Admin: 12/06/21 08:06 Dose: Not Given Documented by: Omeprazole (Omeprazole 20 Mg Capsule.) 20 mg PO BID@0630,1630 [facility] Last Admin: 12/06/21 08:01 Dose: Not Given Documented by: Ondansetron HCl (Ondansetron Hcl 4 Mg/2 Ml Vial) 4 mg IVPUSH Q8H PRN PRN Reason: Nausea and Vomiting Tiotropium [place] (Tiotropium [place] 18 Mcg Cap.W.Dev) 1 puff INHALE RDAILY [facility] Last Admin: 12/06/21 08:02 Dose: Not Given Documented by: Home Medications Medication Instructions Recorded Confirmed Last Taken Type albuterol sulfate 90 mcg/actuation 2 puff INHALATION Q4-6H PRN 11/11/21 12/05/21 Unknown History aerosol inhaler fluticasone fur. 100 mcg-umeclid 1 puff INHALATION DAILY 11/11/21 12/05/21 12/05/21 History 62.5 mcg-vilant 25 mcg inhalat.powder (Trelegy Ellipta) furosemide 20 mg tablet 1 tab PO DAILY 11/11/21 12/05/21 12/05/21 History Physical Exam Vital Signs: Vital Signs: Last Vital Signs Temp 98.7 F 12/06/21 07:29 Pulse 64 12/06/21 07:29 Resp 15 12/06/21 07:29 BP 130/109 H 12/06/21 07:29 Pulse Ox 96 12/06/21 07:29 BMI result Body Mass Index 25.0 GENERAL APPEARANCE: in no acute distress, pleasant. NECK: no carotid bruit, no jugular venous distention. SKIN: no suspicious lesions, warm and dry. HEART: no murmurs, regular rate and rhythm. LUNGS: clear to auscultation bilaterally. ABDOMEN: soft, nontender. EXTREMITIES: Right calf is swollen compared to left. PERIPHERAL PULSES: equal. NEUROLOGIC: Left arm power 3/5. Objective Labs and Meds Result diagrams: 12/06/21 07:02 12/06/21 07:02 Lab results: Laboratory Results - last 24 hr 12/05/21 12/05/21 12/05/21 16:24 16:26 16:39 WBC 8.3 RBC 3.46 L Hgb 9.5 L Hct 30.7 L MCV 88.7 MCH 27.5 MCHC 30.9 L RDW 15.1 Plt Count 282 MPV 9.0 L Immature Gran % (Auto) 0.8 H Neut % (Auto) 90.0 H Lymph % (Auto) 3.3 L [place] % (Auto) 5.5 Eos % (Auto) 0.2 Baso % (Auto) 0.2 Lymph # (Auto) 0.3 L [place] # (Auto) 0.5 Eos # (Auto) 0.0 Baso # (Auto) 0.0 Abs Immat Gran (auto) 0.07 H Absolute Neuts (auto) 7.5 Absolute Nucleated RBC 0.000 Nucleated RBC % (auto) 0.0 PT Whole Blood PT 13.9 H INR Whole Blood INR 1.2 H Sodium Potassium Chloride Carbon Dioxide Anion Gap BUN Creatinine Estim Creat Clear Calc Estimated GFR POC Glucose 86 Random Glucose Calcium Ferritin Total Bilirubin AST ALT Alkaline Phosphatase Total Creatine Kinase Total Protein Albumin Triglycerides Cholesterol LDL Cholesterol, Calc HDL Cholesterol Urine Color Urine Appearance Urine pH Ur Specific [place] Urine Protein Urine Glucose (UA) Urine Ketones Urine Blood Urine Nitrite Ur Leukocyte Esterase Urine RBC Urine WBC Ur Squamous Epith Cells Ur Renal Epithelial Cell Urine Bacteria Urine Mucus COVID-19 (AFSANEH) COVID-19 Clin Com 12/05/21 12/05/21 12/05/21 16:39 16:41 18:05 WBC RBC Hgb Hct MCV MCH MCHC RDW Plt Count MPV Immature Gran % (Auto) Neut % (Auto) Lymph % (Auto) [place] % (Auto) Eos % (Auto) Baso % (Auto) Lymph # (Auto) [place] # (Auto) Eos # (Auto) Baso # (Auto) Abs Immat Gran (auto) Absolute Neuts (auto) Absolute Nucleated RBC Nucleated RBC % (auto) PT 13.3 H Whole Blood PT INR 1.2 H Whole Blood INR Sodium 138 Potassium 3.9 Chloride 104 Carbon Dioxide 27 Anion Gap 11 L BUN 15 Creatinine 0.98 Estim Creat Clear Calc 38.5 Estimated GFR 54 POC Glucose Random Glucose 91 Calcium 8.1 L Ferritin Total Bilirubin 1.1 H AST 13 ALT 13 Alkaline Phosphatase 72 Total Creatine Kinase Total Protein 4.8 L Albumin 2.8 L Triglycerides Cholesterol LDL Cholesterol, Calc HDL Cholesterol Urine Color Urine Appearance Urine pH Ur Specific [place] Urine Protein Urine Glucose (UA) Urine Ketones Urine Blood Urine Nitrite Ur Leukocyte Esterase Urine RBC Urine WBC Ur Squamous Epith Cells Ur Renal Epithelial Cell Urine Bacteria Urine Mucus COVID-19 (AFSANEH) Negative COVID-19 Clin Com See Note 12/05/21 12/06/21 12/06/21 22:30 06:46 07:02 WBC 7.1 RBC 3.53 L Hgb 9.8 L Hct 31.2 L MCV 88.4 MCH 27.8 MCHC 31.4 RDW 15.3 Plt Count 298 MPV 9.2 L Immature Gran % (Auto) 0.6 H Neut % (Auto) 82.1 H Lymph % (Auto) 4.7 L [place] % (Auto) 7.2 Eos % (Auto) 5.0 H Baso % (Auto) 0.4 Lymph # (Auto) 0.3 L [place] # (Auto) 0.5 Eos # (Auto) 0.4 Baso # (Auto) 0.0 Abs Immat Gran (auto) 0.04 H Absolute Neuts (auto) 5.8 Absolute Nucleated RBC 0.000 Nucleated RBC % (auto) 0.0 PT Whole Blood PT INR Whole Blood INR Sodium Potassium Chloride Carbon Dioxide Anion Gap BUN Creatinine Estim Creat Clear Calc Estimated GFR POC Glucose Random Glucose Calcium Ferritin Total Bilirubin AST ALT Alkaline Phosphatase Total Creatine Kinase 24 L D Total Protein Albumin Triglycerides Cholesterol LDL Cholesterol, Calc HDL Cholesterol Urine Color YELLOW Urine Appearance HAZY Urine pH 5.5 Ur Specific [place] 1.015 Urine Protein TRACE Urine Glucose (UA) NEG Urine Ketones 5 Urine Blood 2+ H Urine Nitrite NEG Ur Leukocyte Esterase NEG Urine RBC 10-14 H Urine WBC 0-2 Ur Squamous Epith Cells 1+ Ur Renal Epithelial Cell TRACE Urine Bacteria NONE Urine Mucus TRACE COVID-19 ([facility]FSANE[facility]) COVID-19 Clin Com 12/06/21 12/06/21 12/06/21 07:02 07:02 07:02 WBC RBC Hgb Hct MCV MCH MCHC RDW Plt Count MPV Immature Gran % (Auto) Neut % (Auto) Lymph % (Auto) [place] % (Auto) Eos % (Auto) Baso % (Auto) Lymph # (Auto) [place] # (Auto) Eos # (Auto) Baso # (Auto) Abs Immat Gran (auto) Absolute Neuts (auto) Absolute Nucleated RBC Nucleated RBC % (auto) PT Whole Blood PT INR Whole Blood INR Sodium 140 Potassium 4.0 Chloride 105 Carbon Dioxide 27 Anion Gap 12 BUN 16 Creatinine 0.93 Estim Creat Clear Calc 40.6 Estimated GFR 57 POC Glucose Random Glucose 68 Calcium 8.3 L Ferritin 261 H Total Bilirubin AST ALT Alkaline Phosphatase Total Creatine Kinase Total Protein Albumin Triglycerides 89 Cholesterol 135 LDL Cholesterol, Calc 74 HDL Cholesterol 44 Urine Color Urine Appearance Urine pH Ur Specific [place] Urine Protein Urine Glucose (UA) Urine Ketones Urine Blood Urine Nitrite Ur Leukocyte Esterase Urine RBC Urine WBC Ur Squamous Epith Cells Ur Renal Epithelial Cell Urine Bacteria Urine Mucus COVID-19 ([facility]FS[facility]) COVID-19 Clin Com Imaging Radiologist's impression: Impressions Head CT 12/05/21 16:07 IMPRESSION: Postoperative change/encephalomalacia the right temporal lobe. Generalized atrophy and nonspecific periventricular white matter disease. Bilateral thalamic, left basal ganglia and coronal radiata lacunar infarcts. Left peralta radiata infarct may be new in the interval from October 2021 exams. This could be better evaluated with MRI if clinically indicated. This critical result was discussed with Dr De at 1621 hours on 12/05/2021. It was ascertained that the content and urgency of the report was understood at the time of direct communication. Head/Neck CTA 12/05/21 16:15 IMPRESSION: No intracranial hemorrhage or acute territorial infarction identified. Chronic encephalomalacia and gliosis seen in the right temporal lobe with subjacent craniotomy changes. Chronic infarcts seen in the bilateral basal ganglia and left thalamus. No large vessel occlusion. Intracranial arteries are patent. 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 This critical result was discussed with Dr. De on 12/05/2021 4:52 PM, and it was ascertained that the content and urgency of the report was understood at the time of direct communication. Assessment and Plan (1) CVA (cerebral vascular accident): Status: Acute Plan 86-year-old female who is presenting with leg weakness. She recently had CVA and was sent home on aspirin Plavix. At that time no obvious atrial fibrillation was noted but imaging has shown multiple areas of infarct concerning for embolic CVA. Our plan was to do a 14 day Holter monitor on her but appears it has not happened yet. She is back on others potential CVA. I think it makes sense right now to start on anticoagulants like Neurology is recommending. Stop the aspirin Plavix and started on Eliquis. We will monitor on telemetry and potentially do further workup as outpatient Does not need to beat echocardiography at this stage. Thank you for allowing me to participate in the care of your patient. Please feel free to contact me if you have any questions. Procedures Date of Service Date of Service: 12/06/21
--- NOTE | 2021-12-06 09:48 | P.CNNE_ITS ---
History of Present Illness Data of Consult Service Date: 12/06/21 Primary Care Provider: Unknown Physician HPI Reason for consult: Stroke 86 years old woman who came to hospital because her legs were giving away. She said that it was going on for a while but apparently her family noted that she was somewhat worse and she was brought to emergency room. I had a discussion with emergency room physician last night about her overall situation and because of multiple reasons we decided that treating her with intravenous tPA was not the best strategy as diagnosis was unclear and the timings are unclear. When I talked to her she did not volunteer any other symptoms that brought her to emergency room. Review of Systems Review of Systems: No recent cold or flu-like illness PMFSH Past Medical History Medical History COPD (chronic obstructive pulmonary disease) Stroke (cerebrum) Family History Family History (Updated 12/06/21 @ 05:42 by Jaison Bran MD) Other No family history of cerebrovascular accident (CVA) Surgical History Surgical History No pertinent past surgical history Social History Social History Household Members: None Household Members Other:: daughter, son live near Housing: [facility] Do you presently have visiting nurse or other home services: No Alcohol intake: never Patient Tobacco Use Status: Former Tobacco user Smoked in Last 30 Days: No Use of substances other than those prescribed or required for medical reasons: No Advance Directives: Yes Advance Directives Information Provided: No Advance Directives on File: No service: No Current occupational status: retired [employer] Allergies Allergy/AdvReac Type Severity Reaction Status Date / Time No Known Allergies Allergy Verified 11/10/21 22:06 Active Medications: Current Medications Acetaminophen (Acetaminophen 325 Mg Tablet) 650 mg PO Q6H PRN PRN Reason: Pain, Mild (Pain Scale 1-3) Albuterol Sulfate (Albuterol Sulfate 90 Mcg 8 Gm Inhaler) 2 puff INHALE Q4H PRN PRN Reason: Shortness Of Breath Or Wheezing Aspirin (Aspirin Enteric Coated 81 Mg Tablet.) 81 mg PO DAILY JEFF Last Admin: 12/06/21 08:06 Dose: Not Given Documented by: Atorvastatin Calcium (Atorvastatin Calcium 40 Mg Tablet) 40 mg PO BEDTIME [facility] Last Admin: 12/06/21 01:12 Dose: Not Given Documented by: Clopidogrel Bisulfate (Clopidogrel Bisulfate 75 Mg Tablet) 75 mg PO DAILY [facility] Last Admin: 12/06/21 08:06 Dose: Not Given Documented by: Docusate Sodium (Docusate Sodium 100 Mg Capsule) 100 mg PO DAILY PRN PRN Reason: Constipation Docusate Sodium (Docusate Sodium 100 Mg Capsule) 100 mg PO DAILY PRN PRN Reason: Constipation Enoxaparin Sodium (Enoxaparin Sodium 40 Mg/0.4 Ml Syringe) 40 mg SUBCUT Q24H [facility] Last Admin: 12/06/21 06:16 Dose: 40 mg Documented by: Fluticasone/Vilanterol (Fluticasone/Vilanterol 100/25 Blst.W.Dev) 1 puff INHALE RDAILY [facility] Last Admin: 12/06/21 08:02 Dose: Not Given Documented by: Furosemide (Furosemide 20 Mg Tablet) 20 mg PO DAILY [facility]; Protocol Last Admin: 12/06/21 08:06 Dose: Not Given Documented by: Omeprazole (Omeprazole 20 Mg Capsule.Dr) 20 mg PO BID@0630,1630 [facility] Last Admin: 12/06/21 08:01 Dose: Not Given Documented by: Ondansetron HCl (Ondansetron Hcl 4 Mg/2 Ml Vial) 4 mg IVPUSH Q8H PRN PRN Reason: Nausea and Vomiting Tiotropium [place] (Tiotropium [place] 18 Mcg Cap.W.Dev) 1 puff INHALE RDAILY [facility] Last Admin: 12/06/21 08:02 Dose: Not Given Documented by: Home Medications Medication Instructions Recorded Confirmed Last Taken Type albuterol sulfate 90 mcg/actuation 2 puff INHALATION Q4-6H PRN 11/11/21 12/05/21 Unknown History aerosol inhaler fluticasone fur. 100 mcg-umeclid 1 puff INHALATION DAILY 11/11/21 12/05/21 12/05/21 History 62.5 mcg-vilant 25 mcg inhalat.powder (Trelegy Ellipta) furosemide 20 mg tablet 1 tab PO DAILY 11/11/21 12/05/21 12/05/21 History Physical Exam Vital Signs: Vital Signs: Last Vital Signs Temp 98.7 F 12/06/21 07:29 Pulse 64 12/06/21 07:29 Resp 15 12/06/21 07:29 BP 130/109 H 12/06/21 07:29 Pulse Ox 96 12/06/21 07:29 BMI result Body Mass Index 25.0 Neuro: Other: She was alert and awake with normal spontaneity of speech fluency comprehension and affect. Pupils were round reactive to light about 3 mm. Face was symmetrical. Tongue was midline. There was no pronator drift. Vbatkh-ig-eiht testing was normal. Plantars were bilaterally extensor. She was able to lift her legs against gravity. She was unsteady on her feet. Speech was normal. Deep tendon reflexes were absent. Results Labs CBC & Chem 7: 12/06/21 07:02 12/06/21 07:02 Labs: Short CBC 12/05/21 12/06/21 Range/Units 16:39 07:02 WBC 8.3 7.1 (4.8-10.8) X10*3/uL Hgb 9.5 L 9.8 L (12.0-16.0) g/dl Hct 30.7 L 31.2 L (37.0-47.0) % Plt Count 282 298 (160-400) X10*3/uL BMP 12/05/21 12/06/21 18:05 07:02 Sodium 138 140 Potassium 3.9 4.0 Chloride 104 105 Carbon Dioxide 27 27 BUN 15 16 Creatinine 0.98 0.93 Calcium 8.1 L 8.3 L Cardiac Enzymes 12/05/21 Range/Units 22:30 Total Creatine Kinase 24 L D (26-140) U/L Liver Function 12/05/21 Range/Units 18:05 Total Bilirubin 1.1 H (0.0-1.0) mg/dL AST 13 (5-31) U/L ALT 13 (0-31) U/L Alkaline Phosphatase 72 (39-117) U/L Albumin 2.8 L (3.5-5.0) g/dL Urine 12/06/21 Range/Units 06:46 Urine Color YELLOW Urine Appearance HAZY Urine pH 5.5 (5.0-8.0) Ur Specific [place] 1.015 (1.005-1.025) Urine Protein TRACE (NEG-TRACE) MG/DL Urine Glucose (UA) NEG (NEG) MG/DL Her head CT did not reveal any acute abnormality. There was large right temporal encephalomalacia and [id number] chronic ischemic changes. Assessment and Plan (1) Stroke (cerebrum): Status: Acute 86 years old woman with underlying chronic right temporal encephalomalacia came to hospital with complaint of legs giving away. Her examination revealed bilateral extensor plantar that are somewhat difficult to explain based upon her MRI findings. With main complaint of difficulty walking or falling or legs giving away and bilateral extensor plantars, I recommend obtaining MRI of cervical spine to rule out cervical cord pathology. Procedures Date of Service Date of Service: 12/06/21
--- NOTE | 2021-12-06 10:59 | MHC.CM.PN ---
Attempted to meet with patient in regards to discharge planning. Patient currently sleeping. Spoke with patient's daughter/HCP, Juana via telephone at [phone]. Patient lives alone, uses a rollator walker for mobility and is active with [facility]. Patient was discharged from [facility] on 11/27/21.. PCP verified as Dr Cotton. Patient received 3 Covid vaccines. Juana has a copy of patient's HCP and will bring one to the hospital. IMM explained and left at bedside. Physical therapy eval completed. Acute rehab is being recommended. Juana requesting referral to [facility]. Referral made via [employer]. Continue to monitor for d/c needs.
--- NOTE | 2021-12-06 11:38 | PM.NEUROCN ---
History of Present Illness Data of Consult Service Date: 12/06/21 Primary Care Provider: Unknown Physician HPI Reason for consult: Stroke 86 years old woman who was recently admitted hospital with right hemiparesis and at that time her MRI of brain revealed acute left posterior limb of internal capsule infarct but also another embolic looking right was parietal subcortical infarct. She was discharged on aspirin and Plavix. She came back in hospital with that difficulty speaking blurred vision and and unsteadiness. History was mostly obtained from chart as she was not a good historian. Review of Systems Review of Systems: No recent cold or flu-like PMFSH Past Medical History Medical History (Updated 12/06/21 @ 11:42 by Naty Pearce MD) COPD (chronic obstructive pulmonary disease) Stroke (cerebrum) Family History Family History (Updated 12/06/21 @ 05:42 by Jaison Bran MD) Other No family history of cerebrovascular accident (CVA) Surgical History Surgical History No pertinent past surgical history Social History Social History Household Members: None Household Members Other:: daughter, son live [facility] Do you presently have visiting nurse or other home services: No Alcohol intake: never Patient Tobacco Use Status: Former Tobacco user Smoked in Last 30 Days: No Use of substances other than those prescribed or required for medical reasons: No Advance Directives: Yes Advance Directives Information Provided: No Advance Directives on File: No service: No Current occupational status: retired Meds Allergies Allergy/AdvReac Type Severity Reaction Status Date / Time No Known Allergies Allergy Verified 11/10/21 22:06 Active Medications: Current Medications Acetaminophen (Acetaminophen 325 Mg Tablet) 650 mg PO Q6H PRN PRN Reason: Pain, Mild (Pain Scale 1-3) Albuterol Sulfate (Albuterol Sulfate 90 Mcg 8 Gm Inhaler) 2 puff INHALE Q4H PRN PRN Reason: Shortness Of Breath Or Wheezing Aspirin (Aspirin Enteric Coated 81 Mg Tablet.) 81 mg PO DAILY [facility] Last Admin: 12/06/21 08:06 Dose: Not Given Documented by: Atorvastatin Calcium (Atorvastatin Calcium 40 Mg Tablet) 40 mg PO BEDTIME [facility] Last Admin: 12/06/21 01:12 Dose: Not Given Documented by: Clopidogrel Bisulfate (Clopidogrel Bisulfate 75 Mg Tablet) 75 mg PO DAILY [facility] Last Admin: 12/06/21 08:06 Dose: Not Given Documented by: Docusate Sodium (Docusate Sodium 100 Mg Capsule) 100 mg PO DAILY PRN PRN Reason: Constipation Docusate Sodium (Docusate Sodium 100 Mg Capsule) 100 mg PO DAILY PRN PRN Reason: Constipation Enoxaparin Sodium (Enoxaparin Sodium 40 Mg/0.4 Ml Syringe) 40 mg SUBCUT Q24H [facility] Last Admin: 12/06/21 06:16 Dose: 40 mg Documented by: Fluticasone/Vilanterol (Fluticasone/Vilanterol 100/25 Blst.W.Dev) 1 puff INHALE RDAILY [facility] Last Admin: 12/06/21 08:02 Dose: Not Given Documented by: Furosemide (Furosemide 20 Mg Tablet) 20 mg PO DAILY [facility]; Protocol Last Admin: 12/06/21 08:06 Dose: Not Given Documented by: Omeprazole (Omeprazole 20 Mg Capsule.Dr) 20 mg PO BID@0630,1630 [facility] Last Admin: 12/06/21 08:01 Dose: Not Given Documented by: Ondansetron HCl (Ondansetron Hcl 4 Mg/2 Ml Vial) 4 mg IVPUSH Q8H PRN PRN Reason: Nausea and Vomiting Tiotropium [place] (Tiotropium [place] 18 Mcg Cap.W.Dev) 1 puff INHALE RDAILY [facility] Last Admin: 12/06/21 08:02 Dose: Not Given Documented by: Home Medications Medication Instructions Recorded Confirmed Last Taken Type albuterol sulfate 90 mcg/actuation 2 puff INHALATION Q4-6H PRN 11/11/21 12/05/21 Unknown History aerosol inhaler fluticasone fur. 100 mcg-umeclid 1 puff INHALATION DAILY 11/11/21 12/05/21 12/05/21 History 62.5 mcg-vilant 25 mcg inhalat.powder (Trelegy Ellipta) furosemide 20 mg tablet 1 tab PO DAILY 11/11/21 12/05/21 12/05/21 History Physical Exam Vital Signs: Vital Signs: Last Vital Signs Temp 98.7 F 12/06/21 07:29 Pulse 60 12/06/21 11:14 Resp 15 12/06/21 07:29 BP 129/53 L 12/06/21 11:14 Pulse Ox 96 12/06/21 07:29 BMI result Body Mass Index 25.0 Neuro: Other: She is alert and awake with normal spontaneity of speech fluency comprehension and affect though she has difficulty hearing. Pupils were round reactive to light. Extraocular muscles were intact. Visual goodwin are full to threat. Face was symmetrical. There was no pronator drift. Deep tendon reflexes were trace to absent with equivocal plantars. There was no obvious arm or leg weakness. Results Labs CBC & Chem 7: 12/06/21 07:02 12/06/21 07:02 Labs: Short CBC 12/05/21 12/06/21 Range/Units 16:39 07:02 WBC 8.3 7.1 (4.8-10.8) X10*3/uL Hgb 9.5 L 9.8 L (12.0-16.0) g/dl Hct 30.7 L 31.2 L (37.0-47.0) % Plt Count 282 298 (160-400) X10*3/uL BMP 12/05/21 12/06/21 18:05 07:02 Sodium 138 140 Potassium 3.9 4.0 Chloride 104 105 Carbon Dioxide 27 27 BUN 15 16 Creatinine 0.98 0.93 Calcium 8.1 L 8.3 L Cardiac Enzymes 12/05/21 Range/Units 22:30 Total Creatine Kinase 24 L D (26-140) U/L Liver Function 12/05/21 Range/Units 18:05 Total Bilirubin 1.1 H (0.0-1.0) mg/dL AST 13 (5-31) U/L ALT 13 (0-31) U/L Alkaline Phosphatase 72 (39-117) U/L Albumin 2.8 L (3.5-5.0) g/dL Urine 12/06/21 Range/Units 06:46 Urine Color YELLOW Urine Appearance HAZY Urine pH 5.5 (5.0-8.0) Ur Specific [place] 1.015 (1.005-1.025) Urine Protein TRACE (NEG-TRACE) MG/DL Urine Glucose (UA) NEG (NEG) MG/DL Her recent MRI has revealed bilateral embolic looking ischemic infarctions. CTA of brain and neck and admission did not reveal any large vessel disease or acute lesion. Assessment and Plan (1) Multiple cerebral infarctions: Status: Acute 86 years old woman who recently had an MRI revealing bilateral embolic looking acute ischemic infarctions. She came to hospital with symptoms suggestive of stroke again. Her CTA did not reveal any acute lesion but MRI might be needed for definition. I believe anti-platelet therapy would not be enough for her and she should be anticoagulated for stroke prevention. (2) Embolic cerebral infarction: Status: Acute Procedures Date of Service Date of Service: 12/06/21
--- NOTE | 2021-12-06 12:06 | MHC.SL.SWA ---
Speech Pathologist Impression: Risk of Aspiration Oralpharyngeal Dysphagia Risk of Aspiration Due to: Neurological Condition Liquid Consistency and Strategies for Safe Swallow: Liquid Intake Recommendation: [place] Thick Liquid Intake Strategies: Small Sips No Straws Solid Food Consistency: Dietary Recommendations: Chopped/Advanced (NDD3) Additional Modifications to Solid Foods: Recommend CHOPPED/ADVANCED (NDD3) solids and NECTAR THICK liquids, pills WHOLE in PUREE. Recommend aspiration precautions and intermittent supervision. Allison message sent to MD, RN, RD. Oral Medication Intake: Whole with Puree Compensatory Strategies and Precautions to be Taken for Safe Swallow: Sitting Upright (90 deg) No Straw Small Bites and Sips Alternate Liquids/Solids Rate of Ingestion Change Supervision While Eating and Drinking for Safe Swallow: Intermittent Supervision Swallowing Recommended Treatments: Compens. Strategy Educat. Recommendation for Speech: Inpatient Speech Therapy Comment: MANAGER RESPIRATORY will continue to follow. Frequency/Duration: M-F Extrusion Utility Worker Clinican/Clinical Fellow: No Supervisory Statement: I have reviewed and agree with the student/clinical fellow's documentation: N/A Speech Language Pathologist: Fior Arriaga M.A., CCC-MANAGER RESPIRATORY
--- NOTE | 2021-12-06 13:41 | HO.PM.IMPN ---
Subjective Subjective Date of Service: 12/06/21 Interval History: ? tia Review of Systems Admitted for blurry vision, unsteadiness seems blurry vision was slightly improving, also moving all extremities slightly better than before as per patient. Physical Exam Vital Signs: Vital Signs: Last Vital Signs Temp 97.8 F 12/06/21 12:00 Pulse 64 12/06/21 12:00 Resp 18 12/06/21 12:00 BP 130/64 12/06/21 12:00 Pulse Ox 95 12/06/21 12:00 BMI result Body Mass Index 25.0 Appearance: Alert.? Oriented X3.? not in distress.?lous on hearing Eyes: Pupils equal, round and reactive to light.? Sclera nonicteric.? ENT: Pharynx normal.? Moist mucous membranes. cvs: rrr, [id number] , no murmur res: clear to auscultation ,no rhonchii or wheezing abd: no rebound or guarding ,nt, bs present. ext pulses present , no cyanosis . neuro: axo3 , moves all ext Objective Data Active Medications Acetaminophen (Acetaminophen 325 Mg Tablet) 650 mg PO Q6H PRN PRN Reason: Pain, Mild (Pain Scale 1-3) Albuterol Sulfate (Albuterol Sulfate 90 Mcg 8 Gm Inhaler) 2 puff INHALE Q4H PRN PRN Reason: Shortness Of Breath Or Wheezing Apixaban (Apixaban 5 Mg Tablet) 5 mg PO BID [facility] Atorvastatin Calcium (Atorvastatin Calcium 40 Mg Tablet) 40 mg PO BEDTIME [facility] Last Admin: 12/06/21 01:12 Dose: Not Given Documented by: BENNETT Non-Admin Reason: NPO Docusate Sodium (Docusate Sodium 100 Mg Capsule) 100 mg PO DAILY PRN PRN Reason: Constipation Docusate Sodium (Docusate Sodium 100 Mg Capsule) 100 mg PO DAILY PRN PRN Reason: Constipation Fluticasone/Vilanterol (Fluticasone/Vilanterol 100/25 Blst.W.Dev) 1 puff INHALE RDAILY [facility] Last Admin: 12/06/21 08:02 Dose: Not Given Documented by: ERIN Non-Admin Reason: Med Not Available Furosemide (Furosemide 20 Mg Tablet) 20 mg PO DAILY [facility]; Protocol Last Admin: 12/06/21 08:06 Dose: Not Given Documented by: JEAN Non-Admin Reason: NPO Omeprazole (Omeprazole 20 Mg Capsule.Dr) 20 mg PO BID@2730,9310 [facility] Last Admin: 12/06/21 08:01 Dose: Not Given Documented by: JEAN Non-Admin Reason: NPO Ondansetron HCl (Ondansetron Hcl 4 Mg/2 Ml Vial) 4 mg IVPUSH Q8H PRN PRN Reason: Nausea and Vomiting Tiotropium [place] (Tiotropium [place] 18 Mcg Cap.W.Dev) 1 puff INHALE RDAILY [facility] Last Admin: 12/06/21 08:02 Dose: Not Given Documented by: ERIN Non-Admin Reason: Med Not Available Labs CBC & Chem 7: 12/06/21 07:02 12/06/21 07:02 Labs: Laboratory Results - last 24 hr 12/05/21 12/05/21 12/05/21 16:24 16:26 16:39 MCV 88.7 MCH 27.5 MCHC 30.9 L RDW 15.1 Plt Count 282 MPV 9.0 L Immature Gran % (Auto) 0.8 H Neut % (Auto) 90.0 H Lymph % (Auto) 3.3 L Eddy % (Auto) 5.5 Eos % (Auto) 0.2 Baso % (Auto) 0.2 Lymph # (Auto) 0.3 L Eddy # (Auto) 0.5 Eos # (Auto) 0.0 Baso # (Auto) 0.0 Abs Immat Gran (auto) 0.07 H Absolute Neuts (auto) 7.5 Absolute Nucleated RBC 0.000 Nucleated RBC % (auto) 0.0 PT Whole Blood PT 13.9 H INR Whole Blood INR 1.2 H Anion Gap Estim Creat Clear Calc Estimated GFR POC Glucose 86 Random Glucose Calcium Ferritin Total Bilirubin AST ALT Alkaline Phosphatase Total Creatine Kinase Total Protein Albumin Triglycerides Cholesterol LDL Cholesterol, Calc HDL Cholesterol Urine Color Urine Appearance Urine pH Ur Specific [place] Urine Protein Urine Glucose (UA) Urine Ketones Urine Blood Urine Nitrite Ur Leukocyte Esterase Urine RBC Urine WBC Ur Squamous Epith Cells Ur Renal Epithelial Cell Urine Bacteria Urine Mucus COVID-19 ([facility]) COVID-19 Clin Com 12/05/21 12/05/21 12/05/21 16:39 16:41 18:05 MCV MCH MCHC RDW Plt Count MPV Immature Gran % (Auto) Neut % (Auto) Lymph % (Auto) Eddy % (Auto) Eos % (Auto) Baso % (Auto) Lymph # (Auto) Eddy # (Auto) Eos # (Auto) Baso # (Auto) Abs Immat Gran (auto) Absolute Neuts (auto) Absolute Nucleated RBC Nucleated RBC % (auto) PT 13.3 H Whole Blood PT INR 1.2 H Whole Blood INR Anion Gap 11 L Estim Creat Clear Calc 38.5 Estimated GFR 54 POC Glucose Random Glucose 91 Calcium 8.1 L Ferritin Total Bilirubin 1.1 H AST 13 ALT 13 Alkaline Phosphatase 72 Total Creatine Kinase Total Protein 4.8 L Albumin 2.8 L Triglycerides Cholesterol LDL Cholesterol, Calc HDL Cholesterol Urine Color Urine Appearance Urine pH Ur Specific [place] Urine Protein Urine Glucose (UA) Urine Ketones Urine Blood Urine Nitrite Ur Leukocyte Esterase Urine RBC Urine WBC Ur Squamous Epith Cells Ur Renal Epithelial Cell Urine Bacteria Urine Mucus COVID-19 ([facility]) Negative COVID-19 Clin Com See Note 12/05/21 12/06/21 12/06/21 22:30 06:46 07:02 MCV 88.4 MCH 27.8 MCHC 31.4 RDW 15.3 Plt Count 298 MPV 9.2 L Immature Gran % (Auto) 0.6 H Neut % (Auto) 82.1 H Lymph % (Auto) 4.7 L Eddy % (Auto) 7.2 Eos % (Auto) 5.0 H Baso % (Auto) 0.4 Lymph # (Auto) 0.3 L Eddy # (Auto) 0.5 Eos # (Auto) 0.4 Baso # (Auto) 0.0 Abs Immat Gran (auto) 0.04 H Absolute Neuts (auto) 5.8 Absolute Nucleated RBC 0.000 Nucleated RBC % (auto) 0.0 PT Whole Blood PT INR Whole Blood INR Anion Gap Estim Creat Clear Calc Estimated GFR POC Glucose Random Glucose Calcium Ferritin Total Bilirubin AST ALT Alkaline Phosphatase Total Creatine Kinase 24 L D Total Protein Albumin Triglycerides Cholesterol LDL Cholesterol, Calc HDL Cholesterol Urine Color YELLOW Urine Appearance HAZY Urine pH 5.5 Ur Specific [place] 1.015 Urine Protein TRACE Urine Glucose (UA) NEG Urine Ketones 5 Urine Blood 2+ H Urine Nitrite NEG Ur Leukocyte Esterase NEG Urine RBC 10-14 H Urine WBC 0-2 Ur Squamous Epith Cells 1+ Ur Renal Epithelial Cell TRACE Urine Bacteria NONE Urine Mucus TRACE COVID-19 ([facility]) COVID-19 Clin Com 12/06/21 12/06/21 12/06/21 07:02 07:02 07:02 MCV MCH MCHC RDW Plt Count MPV Immature Gran % (Auto) Neut % (Auto) Lymph % (Auto) Eddy % (Auto) Eos % (Auto) Baso % (Auto) Lymph # (Auto) Eddy # (Auto) Eos # (Auto) Baso # (Auto) Abs Immat Gran (auto) Absolute Neuts (auto) Absolute Nucleated RBC Nucleated RBC % (auto) PT Whole Blood PT INR Whole Blood INR Anion Gap 12 Estim Creat Clear Calc 40.6 Estimated GFR 57 POC Glucose Random Glucose 68 Calcium 8.3 L Ferritin 261 H Total Bilirubin AST ALT Alkaline Phosphatase Total Creatine Kinase Total Protein Albumin Triglycerides 89 Cholesterol 135 LDL Cholesterol, Calc 74 HDL Cholesterol 44 Urine Color Urine Appearance Urine pH Ur Specific [place] Urine Protein Urine Glucose (UA) Urine Ketones Urine Blood Urine Nitrite Ur Leukocyte Esterase Urine RBC Urine WBC Ur Squamous Epith Cells Ur Renal Epithelial Cell Urine Bacteria Urine Mucus COVID-19 ([facility]) COVID-19 Clin Com Assessment and Plan (1) Embolic cerebral infarction: Status: Acute Plan 86-year-old female who presents to the hospital with complaints of ?tia 1.possible tia: recently had an MRI revealing bilateral possible embolic looking acute ischemic infarctions.? She came to hospital with symptoms suggestive of stroke again.? Her CTA did not reveal any acute lesion but MRI added again for further workup. neuro consult noted : anti-platelet therapy would not be enough for her and she should be anticoagulated for stroke prevention.added eliquis-hold off asa/plavix. cardio eval added pt/ot/speech eval 2. COPD : seems stable continue home meds. 3. lower extremity swelling-? right ext swelling>left will recehck dvt studies and ?had popliteal cyst in last study. dvt prophylax Patient family called and message left since nobody answered. Quality Stroke Does the patient have a stroke diagnosis?: No VTE Prior VTE?: No VTE Risk Level:: Medical - moderate - high VTE Device Contraindication: Treatment Not Indicated VTE Drug Contraindication: N/A - Med Ordered
[2021-12-06] MEDS: Apixaban 5 MG TABLET PO ×2 (14:37→19:46)
[2021-12-06] MEDS: Omeprazole 20 MG CAPSULE.DR PO (16:59)
[2021-12-06 19:08] LABS: Folate 8.4 ng/mL (> or = 4.0); Vitamin B12 154 pg/mL (200-900)
[2021-12-06] MEDS: Atorvastatin Calcium 40 MG TABLET PO (19:46)
[2021-12-07] VITALS: BP 109/56; PULSE 73; RESP 18; TEMP 36.2; O2SAT 94
[2021-12-07 04:00] VITALS: BP 114/55; PULSE 62; RESP 18; TEMP 36.2; O2SAT 95
[2021-12-07] MEDS: Omeprazole 20 MG CAPSULE.DR PO (06:00)
[2021-12-07] MEDS: Apixaban 5 MG TABLET PO (07:36)
[2021-12-07] MEDS: Furosemide 20 MG TABLET PO (07:36)
[2021-12-07 07:54] VITALS: BP 120/58; PULSE 64; RESP 15; TEMP 36; O2SAT 95
--- NOTE | 2021-12-07 09:59 | P.PNCA_ITS ---
Subjective Subjective Date of Service: 12/07/21 <GWYN Friedman - Last Filed: 12/07/21 10:26> 12/07/21 <Matthew Plascencia MD - Last Filed: 12/07/21 11:49> Principal diagnosis: CVA <GWYN Friedman Last Filed: 12/07/21 10:26> Interval history: Cardiology follow up of embolic CVA. Seen at 0830. Today she is observed resting without distress. Seems oriented and appropriate. Answers questions, speech clear. Denies chest pains, sob, palpitations. Has large ecchimotic area on her back that nurse tell me is unchanged from day prior. Observed her getting out ot bed with nurse and ambulating slowly with walker. Tele showing no afib. <GWYN Friedman - Last Filed: 12/07/21 10:26> Review of Systems Review of Systems as above <GWYN Friedman - Last Filed: 12/07/21 10:26> Yes all other systems are reviewed and are negative <GWYN Friedman - Last Filed: 12/07/21 10:26> Physical Exam Vital Signs: Last Vital Signs Temp 96.8 F 12/07/21 07:54 Pulse 64 12/07/21 07:54 Resp 15 12/07/21 07:54 BP 120/58 L 12/07/21 07:54 Pulse Ox 95 12/07/21 07:54 BMI result Body Mass Index 25.0 <GWYN Friedman - Last Filed: 12/07/21 10:26> Const General: cooperative, no acute distress, alert and awake <GWYN Friedman - Last Filed: 12/07/21 10:26> Orientation/consciousness: patient oriented x3 <GWYN Friedman Last Filed: 12/07/21 10:26> Neck Neck: Yes normal visual inspection and Yes no JVD <GWYN Friedman Last Filed: 12/07/21 10:26> Resp Effort & Inspection: normal respiratory effort and not labored <GWYN Friedman Last F iled: 12/07/21 10:26> Auscultation: clear to auscultation bilaterally, no rales, no rhonchi and no wheezes <GWYN Friedman - Last Filed: 12/07/21 10:26> Cardio Palpation: normal PMI <GWYN Friedman - Last Filed: 12/07/21 10:26> Rate: regular rate <GWYN Friedman - Last Filed: 12/07/21 10:26> Rhythm: regular rhythm <GWYN Friedman - Last Filed: 12/07/21 10:26> Heart sounds: S1 normal heart sound present and S2 normal heart sound present <Pooja Penaloza GWYN - Last Filed: 12/07/21 10:26> Peripheral pulses: Peripheral pulses 2+ throughout <GWYN Friedman - Last Filed: 12/07/21 10:26> GI Inspection: Yes normal to inspection <Pooja Penaloza GWYN - Last Filed: 12/07/21 10:26> Neuro General: patient oriented x3 <GWYN Friedman - Last Filed: 12/07/21 10:26> Extrem Other: right lower extremeties larger diameter than left - No clear edema. She reports this is normal for her <GWYN Friedman - Last Filed: 12/07/21 10:26> General: Yes normal to inspection and No edema <Pooja Penaloza GWYN - Last Filed: 12/07/21 10:26> Objective Labs and Meds Result diagrams: : 12/06/21 07:02 12/06/21 07:02 <Pooja Penaloza GWYN - Last Filed: 12/07/21 10:26> Lab results: Laboratory Results - last 24 hr 12/06/21 07:02 Vitamin B12 154 L Folate 8.4 <Pooja Penaloza GWYN - Last Filed: 12/07/21 10:26> Imaging Radiologist's impression: Impressions Brain MRI 12/06/21 13:02 IMPRESSION: 1. Small curvilinear focus of restricted diffusion in the region of the left optic radiations and posterior left temporal stem, suspected to represent an acute infarct. No hemorrhagic conversion. 2. Small chronic infarcts in the peralta radiata bilaterally and in the cerebellum. Mild chronic white matter microangiopathy and moderate diffuse parenchymal volume loss. 3. Chronic postoperative changes with cystic encephalomalacia and gliosis in the right temporal pole. Ex vacuo dilatation of the temporal horn of the right lateral ventricle. Small cortically-based area of encephalomalacia, right middle frontal gyrus. Venous Duplex 12/06/21 14:00 IMPRESSION: No DVT demonstrated in the bilateral lower extremity. Left Aviles's cyst. <GWYN Friedman - Last Filed: 12/07/21 10:26> Progress Note: A&P Assessment and plan (1) Embolic cerebral infarction: Status: Acute <GWYN Friedman - Last Filed: 12/07/21 10:26> Assessment and Plan: Evidence of multi infarcts, felt to be embolic. She had been on Aspirin and Plavix due to recent CVAs and now with new CVAs. Has been seen by neurology and taken off aspirin and plavix and started on Eliquis 5 mg bid, which is appro priate dose for her weight and creatinine. She has no known Hx of afib. EKG on admit shows SR. Tele showing SR, rates 60-70s. Holter was ordered following recent admit and not completed as of yet. Echo done on 11/14/21 shows EF 60-65%, no WMA, no significant valve abn, LA likely dilated. Continue Eliquis. We will plan for outpt 2 week holter to assess for atrial fibrillation and arrange for outpt cardiology follow up. She can be discharged from a cardiology perspective. Continue tele monitoring while she is inpt. Recall us if atrial fibrillation is seen. <GWYN Friedman - Last Filed: 12/07/21 10:26> Fall Risk Details Current Medications: Current Medications Acetaminophen (Acetaminophen 325 Mg Tablet) 650 mg PO Q6H PRN PRN Reason: Pain, Mild (Pain Scale 1-3) Albuterol Sulfate (Albuterol Sulfate 90 Mcg 8 Gm Inhaler) 2 puff INHALE Q4H PRN PRN Reason: Shortness Of Breath Or Wheezing Apixaban (Apixaban 5 Mg Tablet) 5 mg PO BID JEFF Last Admin: 12/07/21 07:36 Dose: 5 mg Documented by: Atorvastatin Calcium (Atorvastatin Calcium 40 Mg Tablet) 40 mg PO BEDTIME [facility] Last Admin: 12/06/21 19:46 Dose: 40 mg Documented by: Docusate Sodium (Docusate Sodium 100 Mg Capsule) 100 mg PO DAILY PRN PRN Reason: Constipation Docusate Sodium (Docusate Sodium 100 Mg Capsule) 100 mg PO DAILY PRN PRN Reason: Constipation Fluticasone/Vilanterol (Fluticasone/Vilanterol 100/25 Blst.W.Dev) 1 puff INHALE RDAILY [facility] Last Admin: 12/06/21 08:02 Dose: Not Given Documented by: Furosemide (Furosemide 20 Mg Tablet) 20 mg PO DAILY [facility]; Protocol Last Admin: 12/07/21 07:36 Dose: 20 mg Documented by: Omeprazole (Omeprazole 20 Mg Capsule.Dr) 20 mg PO BID@0630,1630 [facility] Last Admin: 12/07/21 06:00 Dose: 20 mg Documented by: Ondansetron HCl (Ondansetron Hcl 4 Mg/2 Ml Vial) 4 mg IVPUSH Q8H PRN PRN Reason: Nausea and Vomiting Tiotropium [place] (Tiotropium [place] 18 Mcg Cap.W.Dev) 1 puff INHALE RDAILY [facility] Last Admin: 12/06/21 08:02 Dose: Not Given Documented by: <GWYN Friedman - Last Filed: 12/07/21 10:26> Time Spent With Patient Time: Total time spent is greater than 50% in coordination of care (as documented) at patient's floor/unit and/or counseling patient: 20 <GWYN Friedman - Last Filed: 12/07/21 10:26> Time with patient: 15 - 24 minutes <GWYN Friedman - Last Filed: 12/07/21 10:26> Progress Note: Quality Stroke Does the patient have a stroke diagnosis?: No <GWYN Friedman - Last Filed: 12/07/21 10:26> Procedures Date of Service Date of Service: 12/07/21 <GWYN Friedman - Last Filed: 12/07/21 10:26>
[2021-12-07] MEDS: Fluticasone/Vilanterol 100/25 BLST.W.DEV 1 PUFF INHALE (10:14)
[2021-12-07 10:19] VITALS: PULSE 64; RESP 20; O2SAT 95
[2021-12-07 10:22] VITALS: PULSE 64
--- NOTE | 2021-12-07 11:57 | P.DS_ITS ---
DS: Providers Provider Date of Service: 12/07/21 Date of admission: 12/05/21 21:19 Primary care physician: Jessica Cotton MD Consults: 12/05/21 21:19 Consult to Neurology Routine Consulting Provider: [facility] Reason for consultation: TIA Has provider been notified: No 12/06/21 08:28 Consult to Cardiology Routine Consulting Provider: Matthew Plascencia Reason for consultation: reccurrent cva Has provider been notified: No Attending physician on discharge: Elver Ibrahim DS: Diagnosis Discharge Diagnosis (1) Embolic cerebral infarction: Status: Acute DS: Summary Hospital Course Hospital Course: 86-year-old female with past medical history of COPD who presents to the hospital with complaints of generalized weakness, drooling, and having difficulty speaking appropriately.? Patient reports that her voice and her speech stones funny and she was feeling generally weak mostly on the? right lower extremity.? She denies having any facial numbness or tingling, denies any upper extremity weakness.? She denies having any headache or change in vision.? She is also complaining of 1 month history of increasing and worsening cough, worsening sputum production, and dyspnea worsened on exertion.? She is complaining of? leg swelling bilaterally but worse on the right.? She denies any fever or chills, no abdominal pain nausea or vomiting. ?on arrival to the ED patient hemodynamically stable with no significant abnormal vitals satting 94% on room air Labs are signific diabetes a count of 10.0, hemoglobin of 11.2, hematocrit 35.2, labs otherwise unremarkable.? Troponin negative, COVID-19 negative. ? Chest x-ray negative, Head and neck CT angiogram shows no occlusion or hemodynamically significant stenosis within the intracranial or extracranial arterial vasculature. Hospital course: Patient came with stroke-like symptoms found to have new CVA on the MRI: Seen by neurology recommended to change aspirin Plavix to Eliquis since recurrent strokes possible embolic. In addition patient was seen by Cardiology recommended outpatient cardiac workup- cardiology may arrange their own appointment. Patient also has possible B12 deficiency her B12 level is 154: Patient started on 1000 micro g IM injection of cyanocobalamin patient will need daily 1000 mcg IM cyanocobalamin for 6 more days and the than 1000mcg cyanocobalamin weekly for 3 weeks and then monthly injection. Patient was seen by PT and recommended rehab patient is going to rehab. Above management discussed with the patient in detail length she understand and in agreement with the above plan, time spent 50 minutes and 50% time spent on counseling. Significant findings: As above. Procedures performed: None. Treatment and response: As above. Complications: None. Time Spent with Patient Time attestation: Total time spent providing and/or coordinating discharge services: Discharge coordination time: Greater than 30 minutes Quality: Stroke Does the patient have a stroke diagnosis?: No Physical Exam Vital Signs: Vital Signs: Last Vital Signs Temp 96.8 F 12/07/21 07:54 Pulse 64 12/07/21 10:22 Resp 20 12/07/21 10:19 BP 120/58 L 12/07/21 07:54 Pulse Ox 95 12/07/21 07:54 BMI result Body Mass Index 25.0 Appearance: Alert.? Oriented X3.? not in distress.?lous on hearing Eyes: Pupils equal, round and reactive to light.? Sclera nonicteric.? ENT: Pharynx normal.? Moist mucous membranes. cvs: rrr, [id number] , no murmur res: clear to auscultation ,no rhonchii or wheezing abd: no rebound or guarding ,nt, bs present. ext pulses present , no cyanosis . neuro: axo3 , moves all ext DS: Data Data Completed and Pending Labs on day of discharge: Laboratory Results - last 24 hr 12/06/21 07:02 Vitamin B12 154 L Folate 8.4 Additional Comments Additional comments: MR/MR head/brain wo con IMPRESSION: 1. Small curvilinear focus of restricted diffusion in the region of the left optic radiations and posterior left temporal stem, suspected to represent an acute infarct. No hemorrhagic conversion. ? 2. Small chronic infarcts in the peralta radiata bilaterally and in the cerebellum. Mild chronic white matter microangiopathy and moderate diffuse parenchymal volume loss. ? 3. Chronic postoperative changes with cystic encephalomalacia and gliosis in the right temporal pole. Ex vacuo dilatation of the temporal horn of the right lateral ventricle. Small cortically-based area of encephalomalacia, right middle frontal gyrus. CT/CT angio head? neck stroke IMPRESSION: No intracranial hemorrhage or acute territorial infarction identified. Chronic encephalomalacia and gliosis seen in the right temporal lobe with subjacent craniotomy changes. Chronic infarcts seen in the bilateral basal ganglia and left thalamus. ? No large vessel occlusion. Intracranial arteries are patent. ? 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 ? This critical result was discussed with Dr. De on 12/05/2021 4:52 PM, and it was ascertained that the content and urgency of the report was understood at the time of direct communication. US/US venous duplex LE BI IMPRESSION: No DVT demonstrated in the bilateral lower extremity. Left Aviles's cyst. Discharge Plan Discharge Patient Disposition: er [facility] Discharge Diagnosis: cva, possible b12 deficiency Referrals: [facility] [Other] - 1 Week Jessica Cotton MD [Primary Care Provider] - 1 Week Discharge Medications: New Spiriva with HandiHaler 18 mcg Capsule, W/Inhalation Device 18 mcg inhalation RDAILY Qty: 7 0RF Eliquis 5 mg Tablet 5 mg PO BID Qty: 60 0RF Physicians EZ Use B-12 1,000 mcg/mL kit 100 mcg IM DAILY Qty: 1 0RF Rx Instructions: needs 1000 mcg daily for 6 days , then weekly for 3 weeks , then monthly. Continued furosemide 20 mg tablet 1 tab PO DAILY 0RF albuterol sulfate 90 mcg/actuation HFA aerosol inhaler 2 puff inhalation Q4-6H PRN (Reason: Shortness Of Breath Or Wheezing) 0RF Trelegy Ellipta 100-62.5-25 mcg blister with device 1 puff inhalation DAILY 0RF atorvastatin 40 mg Tablet 40 mg PO BEDTIME Qty: 30 0RF docusate sodium 100 mg Capsule 100 mg PO DAILY PRN (Reason: Constipation) Qty: 30 0RF omeprazole 20 mg Capsule,Delayed Release(Dr/Ec) 20 mg PO BID@0630,1630 Qty: 30 0RF Discontinued clopidogrel 75 mg Tablet 75 mg PO DAILY Qty: 30 0RF aspirin 81 mg Tablet,Delayed Release (Dr/Ec) 81 mg PO DAILY Qty: 30 0RF Discharge Orders: Discharge Order (Routine); Ordered 12/07/21 Ordered By: Elver Ibrahim Diet: advance to usual diet, low fat, low cholesterol and low salt diet Activity on Discharge: As tolerated Stand Alone Forms: Patient Portal Discharge page Care Plan Goals: Patient came with stroke-like symptoms found to have new CVA on the MRI: Seen by neurology recommended to change aspirin Plavix to Eliquis since recurrent strokes possible embolic. In addition patient was seen by Cardiology recommended outpatient cardiac workup- cardiology may arrange their own appointment. Patient also has possible B12 deficiency her B12 level is 154: Patient started on 1000 micro g IM injection of cyanocobalamin patient will need daily 1000 mcg IM cyanocobalamin for 6 more days and the than 1000mcg cyanocobalamin weekly for 3 weeks and then monthly injection. Patient was seen by PT and recommended rehab patient is going to rehab. Health Concerns: as above. Plan of Treatment: as above. Assessment: as above. Discharge Date/Time: 12/07/21 15:48
[2021-12-07 12:00] VITALS: BP 135/65; PULSE 70; RESP 15; TEMP 36.2; O2SAT 93
--- NOTE | 2021-12-07 12:08 | MHC.SL.SWA ---
Speech Pathologist Impression: Risk of Aspiration Oralpharyngeal Dysphagia Risk of Aspiration Due to: Neurological Condition Dysphasia Diet Status: No Change Liquid Consistency and Strategies for Safe Swallow: Liquid Intake Recommendation: Ringoes Thick Liquid Intake Strategies: Small Sips No Straws Solid Food Consistency: Dietary Recommendations: Chopped/Advanced (NDD3) Additional Modifications to Solid Foods: CUSTOMER OPERATIONS SPECIALIST confirmed that diet order is correct in [place]. Oral Medication Intake: Whole with Puree Compensatory Strategies and Precautions to be Taken for Safe Swallow: Sitting Upright (90 deg) No Straw Small Bites and Sips Alternate Liquids/Solids Rate of Ingestion Change Supervision While Eating and Drinking for Safe Swallow: Intermittent Supervision Foods to Avoid: Swallowing Recommended Treatments: Compens. Strategy Educat. Recommendation for Speech: Inpatient Speech Therapy Comment: CUSTOMER OPERATIONS SPECIALIST will continue to follow. Frequency/Duration: M-F Date Range for Service Req: Timeline to reassess: Director Transportation Clinican/Clinical Fellow: No Supervisory Statement: I have reviewed and agree with the student/clinical fellow's documentation: N/A Speech Language Pathologist: Fior Arriaga M.A., CCC-CUSTOMER OPERATIONS SPECIALIST
--- NOTE | 2021-12-07 13:14 | MHC.CM.PN ---
PATIENT CAN DC TO [facility] TODAY FOR 1530 [facility]IA [facility]. DAUGHTER, ADRI ([phone]) AWARE AND IN AGREEMENT.
[2021-12-07 14:09] LABS: COVID-19 Test Negative (Negative); IDNOW Serial# 55D5AD1C
[2021-12-07] MEDS: Cyanocobalamin (Vitamin B-12) 1,000 MCG/ML VIAL 1000 MCG IM (14:35)
== END 2021-12-07 15:48 | disposition skilled nursing facility (03) | DRG 66 ==
LOC: HO.ED 20:06 → HO.EDOVER 21:35 → HO.S3 12-06 10:01
PROVIDERS: Admitting Provider Internal Medicine; Emergency Provider Emergency Medicine; PCP Internal Medicine; Visit Provider Internal Medicine
DX: I63.49 Cerebral infarction due to embolism of other cerebral artery (principal); H53.2 Diplopia; E53.8 Deficiency of other specified B group vitamins; R47.02 Dysphasia; K21.9 Gastro-esophageal reflux disease without esophagitis; D64.9 Anemia, unspecified; J44.9 Chronic obstructive pulmonary disease, unspecified; Z20.822 Contact with and (suspected) exposure to COVID-19; Z87.891 Personal history of nicotine dependence; Z79.01 Long term (current) use of anticoagulants; Z79.899 Other long term (current) drug therapy
CPT/HCPCS: 36415; 70450; 70496; 70498; 70551; 80048; 80053; 80061; 81001; 82550; 82607; 82728; 82746; 82947; 85025; 85610; 87635; 92526; 92610; 93005; 93970; 94640; 97116; 97162; 97165; 97535; 99285; J1650; Q9967

== ENCOUNTER → 2021-12-26 15:11 | Outpatient (REF) | payer MEDICARE, SELFPAY ==
--- NOTE | 2021-12-26 15:29 | HM_ITS ---
Conclusion: 1. Patient was monitored for total period of 13 days and 2 hours 2. Baseline was normal sinus rhythm with average heart of 85 beats per minute 3. No significant pauses or bradycardia noted 4. Multiple episodes of supraventricular tachycardia noted longest lasting 43 seconds at 144 beats per minute 5. Total of 2266 PVCs accounting for 0.18% total burden account for occasional PVCs 6. Two episodes of nonsustained VT at 3 beats 7. No patient reported events MTDD
== END ==
LOC: HO.CARD 15:11
PROVIDERS: Visit Provider Internal Medicine Cardiovascular Disease
DX: I49.9 Cardiac arrhythmia, unspecified (principal)
CPT/HCPCS: 93246

== ENCOUNTER → 2022-01-08 13:25 | Outpatient (BNVA) | payer MEDICARE, SELFPAY | PROVIDERS: PCP Internal Medicine; Visit Provider Internal Medicine Pulmonary Disease | DX: J44.9 Chronic obstructive pulmonary disease, unspecified (principal); Z87.891 Personal history of nicotine dependence; Z79.899 Other long term (current) drug therapy | CPT/HCPCS: 99202 ==

== ENCOUNTER 2022-01-09 09:49 | Outpatient (REF) | payer MEDICARE, SELFPAY ==
[2022-01-09 11:31] LABS: Urine Cytology See Pathology rpt
[2022-01-09 11:42] LABS: MANUAL DIFF FLAG NO
[2022-01-09 11:51] LABS: Appearance Urine CLEAR; Color Urine YELLOW; Glucose Urine UA NEG (NEG); Leukocyte Esterase Urine NEG (NEG); Nitrite Urine NEG (NEG); Specific Gravity - Urine <= 1.005 (1.005-1.025); Urine Blood NEG (NEG); Urine Ketones NEG (NEG); Urine Protein NEG (NEG-TRACE)
[2022-01-09 11:56] LABS: Basophils Absolute Auto 0.1 X10*3/uL (0.0-0.2); Basophils Percent Auto 0.6 % (0-2); Eosinophils Absolute Auto 0.3 X10*3/uL (0.0-0.4); Eosinophils Percent Auto 3.7 % (0-4); Hematocrit 37.1 % (37.0-47.0); Hemoglobin 11.2 g/dl (12.0-16.0); Imm Gran Abs Auto 0.05 X10*3/uL (0.00-0.03); Imm Gran Pct Auto 0.5 % (0.0-0.4); Lymphocytes Absolute Auto 0.5 X10*3/uL (1.2-4.9); Lymphocytes Percent Auto 5.2 % (20-40); Mean Corpuscular HGB Conc 30.2 g/dl (31.0-35.0); Mean Corpuscular Hemoglobin 27.5 pg (27.0-33.0); Mean Corpuscular Volume 90.9 fL (80.0-98.0); Mean Platelet Volume 9.5 fL (9.4-12.3); Monocytes Absolute Auto 0.6 X10*3/uL (0.1-1.2); Monocytes Percent Auto 5.9 % (2-11); Neutrophils Absolute Auto 7.8 x10*3/uL (2.0-8.3); Neutrophils Percent Auto 84.1 % (45-73); Platelet Count 344 X10*3/uL (160-400); Red Blood Count 4.08 X10*6/uL (4.20-5.50); Red Cell Distribution Width 16.5 % (11.0-16.0); White Blood Count 9.3 X10*3/uL (4.8-10.8)
[2022-01-09 12:35] LABS: Anion Gap 13 (12-20); Blood Urea Nitrogen 18 mg/dL (9-16); Calcium 8.6 mg/dL (8.4-10.2); Carbon Dioxide 29 mmol/L (22-29); Chloride 104 mmol/L (96-108); Estimated Glomerular Filt Rate 39; Glucose Fasting 95 mg/dL (60-99); Iron 46 mcg/dL (30-160); Percent Iron Saturation 21 % (15-50); Potassium 3.9 mmol/L (3.3-5.1); Sodium 142 mmol/L (135-145); Total Iron Binding Capacity 220 mcg/dL (228-428); Unsaturated Iron Binding 174 ug/dL
[2022-01-09 12:38] LABS: TSH reflex Free T4 5.24 uIU/mL (0.32-4.0)
[2022-01-09 13:09] LABS: Folate 10.6 ng/mL (> or = 4.0); Vitamin B12 1372 pg/mL (200-900)
== END 2022-01-09 09:50 | disposition home or self-care (01) ==
LOC: HO.HMGCLDS 09:49
PROVIDERS: Visit Provider Internal Medicine
DX: D64.9 Anemia, unspecified (principal); E53.8 Deficiency of other specified B group vitamins; I63.9 Cerebral infarction, unspecified; E83.51 Hypocalcemia; Z78.0 Asymptomatic menopausal state
CPT/HCPCS: 36415; 80048; 81003; 82306; 82607; 82746; 83540; 84439; 84443; 85025; 88112

== ENCOUNTER 2022-01-26 14:58 | Outpatient (REF) | payer MEDICARE, SELFPAY ==
--- NOTE | 2022-01-26 10:31 | PFT_ITS ---
Forced vital capacity 61%, FEV1 49%. FEV1/FVC ratio is 60. FEF 25/75 43% and MVV is 28%. Post bronchodilator therapy, there is no significant change. Total lung capacity 64% and residual volume 77%. Diffusion capacity 40%. CONCLUSION: There is mild degree of restrictive pulmonary disorder. Severe obstructive airway disorder. No significant response to bronchodilator therapy. Clinical correlation recommended. MD GODFREY Charles/DIANA / [phone]
== END 2022-01-26 14:59 | disposition home or self-care (01) ==
LOC: HO.RESP 14:58
PROVIDERS: PCP Internal Medicine; Visit Provider Internal Medicine Pulmonary Disease
DX: J44.9 Chronic obstructive pulmonary disease, unspecified (principal)
CPT/HCPCS: 94060; 94727; 94729

== ENCOUNTER → 2022-02-13 12:51 | Outpatient (BNVA) | payer MEDICARE, SELFPAY | PROVIDERS: PCP Internal Medicine; Visit Provider Internal Medicine Pulmonary Disease | DX: J44.9 Chronic obstructive pulmonary disease, unspecified (principal); Z87.891 Personal history of nicotine dependence | CPT/HCPCS: 99212 ==

== ENCOUNTER 2022-02-21 20:46 | Emergency (ER) | payer MEDICARE, SELFPAY ==
--- NOTE | ~2022-02-21 | CT_ITS ---
EXAMINATION: CT BRAIN AND CT CERVICAL SPINE WITHOUT CONTRAST. CLINICAL INFORMATION: Fall. COMPARISON: None TECHNIQUE: 5 mm thin axial and reformatted 2 mm thin sagittal and coronal images of brain were obtained. Subsequently axial 3 mm thin and reformatted 2 mm thin sagittal and coronal images of cervical spine were obtained. DLP [id number] FINDINGS: Brain: There is no acute intra-axial, extra-axial bleed, masses or midline shift. There is no acute infarction evolution. The lateral ventricles are moderately enlarged but symmetrical. There is diffuse periventricular hypodensity in both cerebral hemispheres without mass effect. There is an old right temporal lobe infarct with ex recommend dilatation of right lateral temporal lobe Cervical spine: There is mild reversal of cervical lordosis with loss of disc at virtually at every disc level from C3-C4 through C7-T1 disc level. There is moderate ventral spondylosis at C5-C6 and C6-C7 disc levels. The craniovertebral junction and the C1-C2 alignment is normal. There is mild left C2-C3, C3-C4 and C4-C5 facet joint hypertrophy. There is no visible acute fracture, dislocation or lytic process seen. The prevertebral soft tissues are normal. The lung apices are clear. CT/CT head/brain wo con IMPRESSION: No acute intracranial process seen There is no visible acute fracture, dislocation or subluxation in cervical spine. There are degenerative disc changes and spondylosis as described above.
--- NOTE | ~2022-02-21 | CT_ITS ---
EXAMINATION: CT BRAIN AND CT CERVICAL SPINE WITHOUT CONTRAST. CLINICAL INFORMATION: Fall. COMPARISON: None TECHNIQUE: 5 mm thin axial and reformatted 2 mm thin sagittal and coronal images of brain were obtained. Subsequently axial 3 mm thin and reformatted 2 mm thin sagittal and coronal images of cervical spine were obtained. DLP [id number] FINDINGS: Brain: There is no acute intra-axial, extra-axial bleed, masses or midline shift. There is no acute infarction evolution. The lateral ventricles are moderately enlarged but symmetrical. There is diffuse periventricular hypodensity in both cerebral hemispheres without mass effect. There is an old right temporal lobe infarct with ex recommend dilatation of right lateral temporal lobe Cervical spine: There is mild reversal of cervical lordosis with loss of disc at virtually at every disc level from C3-C4 through C7-T1 disc level. There is moderate ventral spondylosis at C5-C6 and C6-C7 disc levels. The craniovertebral junction and the C1-C2 alignment is normal. There is mild left C2-C3, C3-C4 and C4-C5 facet joint hypertrophy. There is no visible acute fracture, dislocation or lytic process seen. The prevertebral soft tissues are normal. The lung apices are clear. CT/CT cervical spine wo con IMPRESSION: No acute intracranial process seen There is no visible acute fracture, dislocation or subluxation in cervical spine. There are degenerative disc changes and spondylosis as described above.
[2022-02-21 20:55] VITALS: BP 159/59; PULSE 63; RESP 16; TEMP 37.2; O2SAT 97
[2022-02-21 20:58] VITALS: BP 159/59; BP 168/74; PULSE 61; PULSE 65; RESP 13; TEMP 37.2; O2SAT 97; BMI 23.8
--- NOTE | 2022-02-21 21:10 | PC.NURSE ---
pt a&ox3, vss, conveyor monitor applied - NSR, pt tripped over bench this evening denies any pain/LOC, lump on back of head, abrasion to right elbow, on eliquis. provider in room w pt. no new orders at this time.
--- NOTE | 2022-02-21 21:17 | ED.FALL ---
HPI - Fall General Chief Complaint: Fall Stated Complaint: fall Time Seen by Provider: 02/21/22 21:03 Source: patient and EMS Mode of arrival: EMS Limitations: no limitations History of Present Illness HPI Narrative: Patient comes to the emergency room c/o a fall, head strike, no headache, no LOC. patient has a hematoma in the scalp posterior aspect but no pain. Patient has small abrasion to the left elbow, but no joint pain. She takes Eliquis for a previous CVA. states that she feels well, has no pain and no other complaints. Patient states she had a mechanical fall, patient tripped over a bench in her bedroom while changing clothes. Related Data Home Medications Medication Instructions Recorded Confirmed albuterol sulfate 90 mcg/actuation 2 puff INHALATION Q4-6H PRN 11/11/21 12/28/21 aerosol inhaler fluticasone fur. 100 mcg-umeclid 1 puff INHALATION DAILY 11/11/21 12/28/21 62.5 mcg-vilant 25 mcg inhalat.powder (Trelegy Ellipta) furosemide 20 mg tablet 1 tab PO DAILY 11/11/21 12/28/21 pantoprazole 40 mg tablet,delayed 40 mg PO DAILY 12/28/21 12/28/21 release paroxetine HCl 10 mg tablet 10 mg PO DAILY 12/28/21 12/28/21 Previous Rx's Medication Instructions Recorded atorvastatin 40 mg tablet 40 mg PO BEDTIME #30 tab 11/14/21 cyanocobalamin (vitamin B-12) 100 mcg (0.1 mL) IM DAILY #1 ea 12/07/21 1,000 mcg/mL injection kit (Physicians EZ Use B-12) apixaban 5 mg tablet (Eliquis) 5 mg PO BID #180 tab 01/24/22 Allergies Allergy/AdvReac Type Severity Reaction Status Date / Time Penicillins AdvReac rash Verified 02/21/22 21:07 Review of Systems Review of Systems: Constitutional : No Weight loss, No Fever, No Chills, No Night Sweats, No Fatigue, No Malaise ENT/Mouth : No Hearing loss, No Ear Pain, No Nasal Congestion, No Sinus Pain, No Hoarseness, No sore throat, No Rhinorrhea, No Swallowing Difficulty Eyes: No Eye Pain, No Swelling, No Redness, No Foreign Body, No Discharge, No Vision Changes Cardiovascular : No Chest Pain, No SOB, No Dyspnea on Exertion, No Orthopnea, No Edema, No Palpitations Respiratory : No Cough, No Sputum, No Wheezing, No Smoke Exposure, No Dyspnea Gastrointestinal : No Nausea, No Vomiting, No Diarrhea, No Constipation, No abdominal Pain, No Hematochezia, No Melena Genitourinary : no irregular bleeding, No Dysuria, No Urinary Frequency, No Hematuria, No Urinary Incontinence, No Urgency, No Flank Pain, No Urinary Flow Changes, No Hesitancy Musculoskeletal : No joint pain, No Myalgias, No Joint Swelling Skin : Abrasion to the right elbow, hematoma to the scalp posterior aspect Neuro : No Weakness, No Numbness, No Paresthesias, No Loss of Consciousness, No Dizziness, No Headache Psych : No Anxiety/Panic, No Depression, No SI/HI/AH/VH, No Social Issues, Heme/Lymph: No Bruising, No Bleeding,No Lymphadenopathy Endocrine : No Polyuria, No Polydipsia, No Temperature Intolerance [facility] Past Medical History Medical History Anemia COPD (chronic obstructive pulmonary disease) History of CVA with residual deficit Vitamin B12 deficiency Surgical History No pertinent past surgical history Family History Family History Other No family history of cerebrovascular accident (CVA) Social History Social History Household Members: None Household Members Other:: daughter, son live near Housing: [facility] Do you presently have visiting nurse or other home services: Yes (visiting nurse, PT, OT speech therapist) Alcohol intake: never Patient Tobacco Use Status: Former Tobacco user e-Cigarette/Vaping Use: Never Used Use of substances other than those prescribed or required for medical reasons: No Advance Directives: Yes Advance Directives on File: Yes Advance Directives Date on File: 12/06/21 service: No Current occupational status: retired Physical Exam Vital Signs: Vital Signs: Last Vital Signs Temp 98.9 F 02/21/22 20:58 Pulse 65 02/21/22 20:58 Resp 13 02/21/22 20:58 BP 159/59 H 02/21/22 20:58 Pulse Ox 97 02/21/22 20:58 BMI result Body Mass Index 23.8 Const: Other: Appearance: Alert. Oriented X3. No acute distress. Eyes: Pupils equal, round and reactive to light. ENT: Pharynx normal. Neck: Normal inspection. Neck supple. No lymph nodes noted. No crepitus CVS: Normal heart rate and rhythm. Pulses normal. Normal S1 and S2 Respiratory: No respiratory distress. Breath sounds normal. No Wheezing. No rales Abdomen: Soft and nontender. No rigidity. No distention. Skin: Skin warm and dry. Small abrasion to the right elbow. 3 cm x 3 cm ecchymosis to the scalp posterior aspect, no laceration Extremities: No lower extremity edema. No Lacerations. No Rash Neuro: Oriented X 3. No motor deficit. No sensory deficit. Moving all extremities. No slurred speech. CN 2 through 12 grossly intact Psych: calm, cooperative, normal affect Course Course Course Narrative: Patient is on Eliquis, we will go ahead and get a CT scan of the head and neck. Head CT of the head and neck negative MDM - Fall Imaging Data CT scan - head: Radiologist's impression: INDINGS: Brain: There is no acute intra-axial, extra-axial bleed, masses or midline shift. There is no acute infarction evolution. The lateral ventricles are moderately enlarged but symmetrical. There is diffuse periventricular hypodensity in both cerebral hemispheres without mass effect. There is an old right temporal lobe infarct with ex recommend dilatation of right lateral temporal lobe Cervical spine: There is mild reversal of cervical lordosis with loss of disc at virtually at every disc level from C3-C4 through C7-T1 disc level. There is moderate ventral spondylosis at C5-C6 and C6-C7 disc levels. The craniovertebral junction and the C1-C2 alignment is normal. There is mild left C2-C3, C3-C4 and C4-C5 facet joint hypertrophy. There is no visible acute fracture, dislocation or lytic process seen. The prevertebral soft tissues are normal. The lung apices are clear. CT/CT head/brain wo con IMPRESSION: No acute intracranial process seen ? There is no visible acute fracture, dislocation or subluxation in cervical spine. There are degenerative disc changes and spondylosis as described above. Discharge Plan Discharge Clinical Impression: Contusion of head Patient Disposition: Home, Self-Care Instructions: Ecchymosis (ED) Additional Instructions: Please follow-up with your primary care physician tomorrow. If you have any worsening or new symptoms, please return to the emergency room or call 911 Prescriptions: No Action Eliquis 5 mg tablet 5 mg PO BID Qty: 180 5RF Physicians EZ Use B-12 1,000 mcg/mL kit 100 mcg IM DAILY Qty: 1 0RF Rx Instructions: needs 1000 mcg daily for 6 days , then weekly for 3 weeks , then monthly. furosemide 20 mg tablet 1 tab PO DAILY 0RF albuterol sulfate 90 mcg/actuation HFA aerosol inhaler 2 puff inhalation Q4-6H PRN (Reason: Shortness Of Breath Or Wheezing) 0RF Trelegy Ellipta 100-62.5-25 mcg blister with device 1 puff inhalation DAILY 0RF atorvastatin 40 mg Tablet 40 mg PO BEDTIME Qty: 30 0RF paroxetine HCl 10 mg tablet 10 mg PO DAILY 0RF pantoprazole 40 mg tablet,delayed release (DR/EC) 40 mg PO DAILY 0RF
== END 2022-02-21 23:23 | disposition home or self-care (01) ==
PROVIDERS: Emergency Provider Emergency Medicine; PCP Internal Medicine
DX: S00.03XA Contusion of scalp, initial encounter (principal); S50.312A Abrasion of left elbow, initial encounter; J44.9 Chronic obstructive pulmonary disease, unspecified; Z86.73 Personal history of transient ischemic attack (TIA), and cerebral infarction without residual deficits; Z79.01 Long term (current) use of anticoagulants; W01.0XXA Fall on same level from slipping, tripping and stumbling without subsequent striking against object, initial encounter; Y93.89 Activity, other specified; Y92.003 Bedroom of unspecified non-institutional (private) residence as the place of occurrence of the external cause; Y99.9 Unspecified external cause status
CPT/HCPCS: 70450; 72125; 99284

== ENCOUNTER 2022-02-26 11:56 | Outpatient (REF) | payer MEDICARE, SELFPAY ==
--- NOTE | ~2022-02-26 | XR_ITS ---
EXAMINATION: XR RIBS, BILATERAL CLINICAL INFORMATION: Pleurodynia. COMPARISON: None TECHNIQUE: 3 views of the bilateral ribs were obtained. FINDINGS: The lungs are expanded with no acute pneumonic process seen. There is mild blunting of the left CP angle from pleural effusion or thickening. The heart size and the great vessels are normal caliber. There is mild levoscoliosis of the thoracolumbar spine. Bilateral ribs reveal no visible rib fracture or soft tissue abnormality. XR/XR ribs BI 3V IMPRESSION: Unremarkable chest exam. Unremarkable bilateral rib exam.
== END 2022-02-26 11:57 | disposition home or self-care (01) ==
LOC: HO.HMGCX 11:56
PROVIDERS: PCP Internal Medicine; Visit Provider Internal Medicine
DX: R07.81 Pleurodynia (principal); Z91.81 History of falling
CPT/HCPCS: 71110

== ENCOUNTER 2022-04-03 13:19 | Outpatient (REF) | payer MEDICARE, SELFPAY ==
[2022-04-03 16:11] LABS: MANUAL DIFF FLAG NO
[2022-04-03 16:21] LABS: Basophils Percent Auto 0.4 % (0-2); Eosinophils Absolute Auto 0.1 X10*3/uL (0.0-0.4); Eosinophils Percent Auto 0.7 % (0-4); Hemoglobin 10.7 g/dl (12.0-16.0); Imm Gran Abs Auto 0.04 X10*3/uL (0.00-0.03); Imm Gran Pct Auto 0.4 % (0.0-0.4); Lymphocytes Absolute Auto 0.6 X10*3/uL (1.2-4.9); Lymphocytes Percent Auto 5.1 % (20-40); Mean Corpuscular HGB Conc 32.4 g/dl (31.0-35.0); Mean Corpuscular Hemoglobin 28.9 pg (27.0-33.0); Mean Corpuscular Volume 89.2 fL (80.0-98.0); Mean Platelet Volume 10.7 fL (9.4-12.3); Monocytes Absolute Auto 0.6 X10*3/uL (0.1-1.2); Monocytes Percent Auto 5.2 % (2-11); Neutrophils Percent Auto 88.2 % (45-73); Platelet Count 298 X10*3/uL (160-400); Red Cell Distribution Width 13.4 % (11.0-16.0); White Blood Count 11.3 X10*3/uL (4.8-10.8)
[2022-04-03 16:25] LABS: Anion Gap 14 (12-20); Blood Urea Nitrogen 28 mg/dL (9-16); Calcium 9.1 mg/dL (8.4-10.2); Carbon Dioxide 29 mmol/L (22-29); Chloride 105 mmol/L (96-108); Estimated Glomerular Filt Rate 38; Glucose Fasting 109 mg/dL (60-99); Potassium 3.5 mmol/L (3.3-5.1); Sodium 144 mmol/L (135-145)
[2022-04-03 16:46] LABS: TSH reflex Free T4 3.59 uIU/mL (0.32-4.0); Vitamin D 25-OH Total 38.9 ng/mL (>30)
[2022-04-03 16:58] LABS: Folate 10.6 ng/mL (> or = 4.0); Vitamin B12 304 pg/mL (200-900)
== END 2022-04-03 13:20 | disposition home or self-care (01) ==
LOC: HO.HMGCLDS 13:19
PROVIDERS: PCP Internal Medicine; Visit Provider Internal Medicine
DX: E53.8 Deficiency of other specified B group vitamins (principal); E55.9 Vitamin D deficiency, unspecified; I69.30 Unspecified sequelae of cerebral infarction; D64.9 Anemia, unspecified
CPT/HCPCS: 36415; 80048; 82306; 82607; 82746; 84443; 85025

== ENCOUNTER 2022-04-05 14:26 | Emergency (ER) | payer MEDICARE, SELFPAY ==
--- NOTE | ~2022-04-05 | XR_ITS ---
EXAMINATION: XR CHEST CLINICAL INFORMATION: Fall COMPARISON: 02/26/2022 TECHNIQUE: Frontal view of the chest was obtained. FINDINGS: No significant abnormality is noted involving the heart, lungs, mediastinum, bony thorax or soft tissues. Some previously noted blunting of the left costophrenic angle has resolved. Scarring remains at the left lung base. XR/XR chest 1V IMPRESSION: No acute intrathoracic disease.
--- NOTE | ~2022-04-05 | CT_ITS ---
EXAMINATION: CT CERVICAL SPINE WITHOUT CONTRAST CLINICAL INFORMATION: Fall. COMPARISON: Cervical spine CT 02/21/2022. TECHNIQUE: CT of the cervical spine was performed without contrast. Multiplanar reformats were rendered and reviewed. This CT examination was performed using dose optimization techniques as appropriate, variously including the following: *Automated exposure control *Adjustment of mA and/or kV according to patient size (this includes techniques or standardized protocols for targeted exams where dose is matched to indication/reason for exam; i.e. extremities or head) *Use of iterative reconstruction technique FINDINGS: The cervical vertebral bodies maintain normal heights. There is mild anterolisthesis of C2 on C3. There is multilevel significant intervertebral disc height loss. Significant facet arthropathy is noted including multilevel facet ankylosis. There is no evidence of fracture. The craniovertebral junction is intact. There is no significant osseous narrowing of the spinal canal. There is multilevel neural foraminal stenosis related to uncovertebral hypertrophy and facet arthropathy, most advanced on the left at C3-C4, on the left at C4-C5, and bilaterally at C5-C6. The upper lungs are grossly clear allowing for pleural-parenchymal thickening. There is partially visualized right temporal craniotomy changes. CT/CT cervical spine wo con IMPRESSION: No acute traumatic injury within the cervical spine. Multilevel degenerative spondylosis without high-grade narrowing of the spinal canal.
--- NOTE | ~2022-04-05 | CT_ITS ---
EXAMINATION: CT HEAD AND FACIAL BONES WITHOUT CONTRAST CLINICAL INFORMATION: Status post fall, rule out intracranial abnormality. COMPARISON: Head CT scan dated 02/21/2022. TECHNIQUE: Multiple axial images of the head and facial bones were obtained without the administration of intravenous contrast. Coronal and sagittal reformatted images were obtained. This CT examination was performed using dose optimization techniques as appropriate, variously including the following: *Automated exposure control *Adjustment of mA and/or kV according to patient size (this includes techniques or standardized protocols for targeted exams where dose is matched to indication/reason for exam; i.e. extremities or head) *Use of iterative reconstruction technique DLP: 710, 295 mGy-cm FINDINGS: Head: There is mild widening of the cortical sulci and associated ventriculomegaly. The lateral ventricles are symmetrical. The third and fourth ventricles are in their normal midline position. The basilar and prepontine cisterns are unremarkable. Right anterior temporal encephalomalacia without significant change. Right thalamus and peralta radiata lacunar infarcts. There is no acute intra or extracerebral abnormality. There is no mass effect or midline shift. Sections through the bony calvarium are unremarkable. Facial bones: The forehead, bony orbits, nasal bone maxilla and zygomatic arches, temporomandibular joints and mandible are intact. Minimal nasal septal deviation apex the right is seen without overt fracture. The paranasal sinuses show mild mucosal thickening in the bilateral ethmoid and maxillary sinuses. The orbital contents are unremarkable. No air-fluid levels. The mastoid air cells are clear. Right lateral supraorbital soft tissue swelling and air is seen without acute underlying osseous abnormality. CT/CT facial bones wo con IMPRESSION: 1. No acute intracranial pathology. 2. Mild lateral right supraorbital soft tissue swelling without acute underlying abnormality.
--- NOTE | 2022-04-05 14:41 | ECG_ITS ---
Test Reason : FALL Blood Pressure : / mmHG Vent. Rate : 060 BPM Atrial Rate : 060 BPM P-R Int : 154 ms QRS Dur : 080 ms QT Int : 406 ms P-R-T Axes : 073 034 057 degrees QTc Int : 406 ms Normal sinus rhythm Normal ECG When compared with ECG of 05-DEC-2021 16:28, No significant change was found Referred By: Nadia Mcgregor Electronically Signed By:GENNY DIAZ
--- NOTE | 2022-04-05 14:43 | ED.FALL ---
HPI - Fall General Chief Complaint: Fall Stated Complaint: FALL W/FACE LAC,BRUISES Time Seen by Provider: 04/05/22 14:41 Source: patient Mode of arrival: EMS Limitations: no limitations History of Present Illness HPI Narrative: patient is on eliquis, used life alert to call 911 MD complaint: fall Onset (ago): hour(s) (1:30pm) Fall from: standing Fall witnessed: no Place fall occurred: home Loss of consciousness: none Prolonged down time: no Symptoms prior to fall: none Context: other (patient unsure denies preceding symptoms but states she is clumsy after a stroke and falls a lot) Location of injury: head and face Location of injury - extremities: right: elbow Severity: mild Quality: aching Associated symptoms (after fall): other Related Data Home Medications Medication Instructions Recorded Confirmed albuterol sulfate 90 mcg/actuation 2 puff inhalation Q4-6H PRN 11/11/21 02/27/22 aerosol inhaler Shortness Of Breath Or Wheezing fluticasone fur. 100 mcg-umeclid 1 puff inhalation DAILY 11/11/21 02/27/22 62.5 mcg-vilant 25 mcg inhalat.powder (Trelegy Ellipta) paroxetine HCl 10 mg tablet 10 mg PO DAILY 12/28/21 02/27/22 Previous Rx's Medication Instructions Recorded cyanocobalamin (vitamin B-12) 100 mcg (0.1 mL) IM DAILY #1 ea 12/07/21 1,000 mcg/mL injection kit (Physicians EZ Use B-12) apixaban 5 mg tablet (Eliquis) 5 mg PO BID #180 tabs 01/24/22 cholecalciferol (vitamin D3) 1,250 1,250 mcg PO QWEEK 90 days #13 caps 02/26/22 mcg (50,000 unit) capsule pantoprazole 40 mg tablet,delayed 40 mg PO DAILY #30 tabs 02/26/22 release atorvastatin 40 mg tablet 40 mg PO BEDTIME #90 tabs 03/02/22 furosemide 20 mg tablet 20 mg PO DAILY #90 tabs 03/02/22 Allergies Allergy/AdvReac Type Severity Reaction Status Date / Time Penicillins AdvReac rash Verified 04/03/22 23:55 Review of Systems Review of Systems: Constitutional : No Fever, No Chills, No Fatigue ENT/Mouth : No sore throat, No Rhinorrhea Eyes: No Eye Pain, No Swelling, No Redness Cardiovascular : No Chest Pain, No SOB, No Dyspnea on Exertion Respiratory : No Cough, No Sputum Gastrointestinal : No Nausea, No Vomiting, No Diarrhea, No abdominal Pain Genitourinary : No Dysuria, No Urinary Frequency, No Hematuria, Musculoskeletal : No joint pain, No Myalgias, No Joint Swelling Skin : No Skin Lesions, No rash, pos abrasions Neuro : No Weakness, No Numbness, No Dizziness, positive Headache Psych : No Anxiety/Panic, No Depression Heme/Lymph: No Bruising, No Bleeding,No Lymphadenopathy Endocrine : No Polyuria, No Polydipsia All other systems reviewed and are negative [facility] Past Medical History Attestation statement: The following information was validated with the patient. Medical History Anemia COPD (chronic obstructive pulmonary disease) History of CVA with residual deficit Vitamin B12 deficiency Vitamin D deficiency Surgical History No pertinent past surgical history Family History Family History Other No family history of cerebrovascular accident (CVA) Social History Social History Household Members: None Household Members Other:: daughter, son live near Housing: [facility] Do you presently have visiting nurse or other home services: Yes (visiting nurse, PT, OT speech therapist) Alcohol intake: never Patient Tobacco Use Status: Former Tobacco user e-Cigarette/Vaping Use: Never Used Advance Directives: No Advance Directives Information Provided: No Advance Directives Date on File: 12/06/21 service: No Current occupational status: retired Cognitive needs: No Hearing needs: Yes Vision needs: Yes Physical Exam Vital Signs: Vital Signs: Last Vital Signs Temp 98.2 F 04/05/22 18:20 Pulse 67 04/05/22 18:20 Resp 18 04/05/22 18:20 BP 146/66 H 04/05/22 18:20 Pulse Ox 96 04/05/22 18:20 O2 Del Method 04/05/22 18:20 BMI result Body Mass Index 22.6 Appearance: Alert. Oriented X3. No acute distress. Eyes: Pupils equal, round and reactive to light. ENT: Pharynx normal. Contusion and abraion to R eyebrow and periorbital area Neck: Normal inspection. Neck supple. CVS: Normal heart rate and rhythm. Pulses normal. Respiratory: No respiratory distress. Breath sounds normal. Abdomen: Soft and nontender. Back: non-tender Skin: Skin warm and dry. Normal skin color. Normal skin turgor. R elbow small quarter sized superficial skin tear Extremities: No lower extremity edema. full ROM of ext without pain Neuro: Oriented X 3. No motor deficit. No sensory deficit. Course Course Course Narrative: repeat H/H stable, repeat trop flat no flank pain, mild hematuria hx of same in past steady gait, GCS 15, daughter in law to come get patient and patient states she can stay with her - stable for DC at this time wants to go home MDM - Fall MDM Narrative Medical decision making narrative: 87 yo female with hx of COPD, anemia, CVA on eliquis here with c/o fall at home no preceding symptoms - at this time will need labs, CT head/cspine/facial bones/ for trauma and DOAC use, basic labs, EKG, troponin x 2. Patient denies dizziness, CP/SOB. Dispo per results and findings. Lab Data Result diagrams: 04/05/22 17:40 04/05/22 15:10 Labs: Lab Results 04/05/22 04/05/22 04/05/22 Range/Units 15:10 15:10 15:10 WBC 6.5 (4.8-10.8) X10*3/uL RBC 3.18 L (4.20-5.50) X10*6/uL Hgb 9.0 L (12.0-16.0) g/dl Hct 28.0 L (37.0-47.0) % MCV 88.1 (80.0-98.0) fL MCH 28.3 (27.0-33.0) pg MCHC 32.1 (31.0-35.0) g/dl RDW 13.3 (11.0-16.0) % Plt Count 206 D (160-400) X10*3/uL MPV 9.7 (9.4-12.3) fL Immature Gran % (Auto) 0.8 H (0.0-0.4) % Neut % (Auto) 79.4 H (45-73) % Lymph % (Auto) 7.4 L (20-40) % [place] % (Auto) 6.7 (2-11) % Eos % (Auto) 5.4 H (0-4) % Baso % (Auto) 0.3 (0-2) % Lymph # (Auto) 0.5 L (1.2-4.9) X10*3/uL [place] # (Auto) 0.4 (0.1-1.2) X10*3/uL Eos # (Auto) 0.4 (0.0-0.4) X10*3/uL Baso # (Auto) 0.0 (0.0-0.2) X10*3/uL Abs Immat Gran (auto) 0.05 H (0.00-0.03) X10*3/uL Absolute Neuts (auto) 5.2 (2.0-8.3) x10*3/uL Absolute Nucleated RBC 0.000 (0.0-0.012) X10*3/uL Nucleated RBC % (auto) 0.0 (0.0-0.2) /100WBC PT (9.9-13.0) SEC INR (0.9-1.1) Sodium 144 (135-145) mmol/L Potassium 3.4 (3.3-5.1) mmol/L Chloride 108 (96-108) mmol/L Carbon Dioxide 26 (22-29) mmol/L Anion Gap 13 (12-20) BUN 30 H (9-16) mg/dL Creatinine 1.16 (0.5-1.4) mg/dL Estim Creat Clear Calc 32.0 Estimated GFR 44 Random Glucose 100 (60-115) mg/dL Calcium 8.4 D (8.4-10.2) mg/dL Magnesium 1.8 (1.6-2.6) mg/dL Total Bilirubin 0.6 (0.0-1.0) mg/dL Direct Bilirubin 0.3 (0.0-0.5) mg/dL AST 13 (5-31) U/L ALT 10 (0-31) U/L Alkaline Phosphatase 87 D (39-117) U/L Troponin I High Sens (<3.5-17.0) ng/L Total Protein 5.4 L (6.5-8.0) g/dL Albumin 3.3 L (3.5-5.0) g/dL Urine Color Urine Appearance Urine pH (5.0-8.0) Ur Specific [place] (1.005-1.025) Urine Protein (NEG-TRACE) MG/DL Urine Glucose (UA) (NEG) MG/DL Urine Ketones (NEG) MG/DL Urine Blood (NEG) Urine Nitrite (NEG) Ur Leukocyte Esterase (NEG) Urine RBC (0) /HPF Urine WBC (0-4) /HPF Ur Squamous Epith Cells /LPF Urine Bacteria /LPF COVID-19 (AFSANEH) Negative (Negative) COVID-19 Clin Com See Note 04/05/22 04/05/22 04/05/22 Range/Units 15:10 15:10 17:40 WBC 8.8 (4.8-10.8) X10*3/uL RBC 3.24 L (4.20-5.50) X10*6/uL Hgb 9.1 L (12.0-16.0) g/dl Hct 28.7 L (37.0-47.0) % MCV 88.6 (80.0-98.0) fL MCH 28.1 (27.0-33.0) pg MCHC 31.7 (31.0-35.0) g/dl RDW 13.2 (11.0-16.0) % Plt Count 214 (160-400) X10*3/uL MPV 9.8 (9.4-12.3) fL Immature Gran % (Auto) (0.0-0.4) % Neut % (Auto) (45-73) % Lymph % (Auto) (20-40) % [place] % (Auto) (2-11) % Eos % (Auto) (0-4) % Baso % (Auto) (0-2) % Lymph # (Auto) (1.2-4.9) X10*3/uL [place] # (Auto) (0.1-1.2) X10*3/uL Eos # (Auto) (0.0-0.4) X10*3/uL Baso # (Auto) (0.0-0.2) X10*3/uL Abs Immat Gran (auto) (0.00-0.03) X10*3/uL Absolute Neuts (auto) (2.0-8.3) x10*3/uL Absolute Nucleated RBC 0.000 (0.0-0.012) X10*3/uL Nucleated RBC % (auto) 0.0 (0.0-0.2) /100WBC PT 19.2 H (9.9-13.0) SEC INR 1.7 H (0.9-1.1) Sodium (135-145) mmol/L Potassium (3.3-5.1) mmol/L Chloride (96-108) mmol/L Carbon Dioxide (22-29) mmol/L Anion Gap (12-20) BUN (9-16) mg/dL Creatinine (0.5-1.4) mg/dL Estim Creat Clear Calc Estimated GFR Random Glucose (60-115) mg/dL Calcium (8.4-10.2) mg/dL Magnesium (1.6-2.6) mg/dL Total Bilirubin (0.0-1.0) mg/dL Direct Bilirubin (0.0-0.5) mg/dL AST (5-31) U/L ALT (0-31) U/L Alkaline Phosphatase (39-117) U/L Troponin I High Sens 6.3 D (<3.5-17.0) ng/L Total Protein (6.5-8.0) g/dL Albumin (3.5-5.0) g/dL Urine Color Urine Appearance Urine pH (5.0-8.0) Ur Specific [place] (1.005-1.025) Urine Protein (NEG-TRACE) MG/DL Urine Glucose (UA) (NEG) MG/DL Urine Ketones (NEG) MG/DL Urine Blood (NEG) Urine Nitrite (NEG) Ur Leukocyte Esterase (NEG) Urine RBC (0) /HPF Urine WBC (0-4) /HPF Ur Squamous Epith Cells /LPF Urine Bacteria /LPF COVID-19 (AFSANEH) (Negative) COVID-19 Clin Com 04/05/22 04/05/22 Range/Units 17:40 18:56 WBC (4.8-10.8) X10*3/uL RBC (4.20-5.50) X10*6/uL Hgb (12.0-16.0) g/dl Hct (37.0-47.0) % MCV (80.0-98.0) fL MCH (27.0-33.0) pg MCHC (31.0-35.0) g/dl RDW (11.0-16.0) % Plt Count (160-400) X10*3/uL MPV (9.4-12.3) fL Immature Gran % (Auto) (0.0-0.4) % Neut % (Auto) (45-73) % Lymph % (Auto) (20-40) % [place] % (Auto) (2-11) % Eos % (Auto) (0-4) % Baso % (Auto) (0-2) % Lymph # (Auto) (1.2-4.9) X10*3/uL [place] # (Auto) (0.1-1.2) X10*3/uL Eos # (Auto) (0.0-0.4) X10*3/uL Baso # (Auto) (0.0-0.2) X10*3/uL Abs Immat Gran (auto) (0.00-0.03) X10*3/uL Absolute Neuts (auto) (2.0-8.3) x10*3/uL Absolute Nucleated RBC (0.0-0.012) X10*3/uL Nucleated RBC % (auto) (0.0-0.2) /100WBC PT (9.9-13.0) SEC INR (0.9-1.1) Sodium (135-145) mmol/L Potassium (3.3-5.1) mmol/L Chloride (96-108) mmol/L Carbon Dioxide (22-29) mmol/L Anion Gap (12-20) BUN (9-16) mg/dL Creatinine (0.5-1.4) mg/dL Estim Creat Clear Calc Estimated GFR Random Glucose (60-115) mg/dL Calcium (8.4-10.2) mg/dL Magnesium (1.6-2.6) mg/dL Total Bilirubin (0.0-1.0) mg/dL Direct Bilirubin (0.0-0.5) mg/dL AST (5-31) U/L ALT (0-31) U/L Alkaline Phosphatase (39-117) U/L Troponin I High Sens 9.3 (<3.5-17.0) ng/L Total Protein (6.5-8.0) g/dL Albumin (3.5-5.0) g/dL Urine Color YELLOW Urine Appearance HAZY Urine pH 5.5 (5.0-8.0) Ur Specific [place] 1.020 (1.005-1.025) Urine Protein TRACE (NEG-TRACE) MG/DL Urine Glucose (UA) NEG (NEG) MG/DL Urine Ketones NEG (NEG) MG/DL Urine Blood 3+ H (NEG) Urine Nitrite NEG (NEG) Ur Leukocyte Esterase NEG (NEG) Urine RBC 15-29 H (0) /HPF Urine WBC 0 (0-4) /HPF Ur Squamous Epith Cells NONE /LPF Urine Bacteria 1+ /LPF COVID-19 (AFSANEH) (Negative) COVID-19 Clin Com ECG Data Attestation: I personally reviewed and interpreted this ECG as follows: ECG interpretation date: 04/05/22 ECG interpretation time: 15:41 Interpretation: Rate: 60 Rhythm: NSR [place]: normal Normal P waves. Normal MEGAN. Normal QRS complex. ST T wave : normal no PARKER qTC: normal prior studies: no acute ischemia The study has been interpreted contemporaneously by me. Discharge Plan Discharge Clinical Impression: Skin tear of right upper extremity Contusion of face Qualifiers: Encounter type: initial encounter Qualified Code(s): S00.83XA - Contusion of other part of head, initial encounter Hematuria Qualifiers: Hematuria type: asymptomatic microscopic Qualified Code(s): R31.21 - Asymptomatic microscopic hematuria Instructions: Skin Avulsion (ED), Facial Contusion (ED), Hematuria (ED) Additional Instructions: return to ED for any worsening symptoms or concerns TAKE DRESSING OFF IN 24 HOURS KEEP CLEAN COVERED AND DRY MONITOR FOR REDNESS, YELLOW DRAINAGE, SWELLING, FEVERS CT HEAD, FACIAL BONES, CERVICAL SPINE NEGATIVE FOR TRAUMA CHEST XRAY NEGATIVE mild blood in urine hx of same in past - please follow up with doctor, slight anemia same in past please follow up with your doctor as well repeat blood test CBC In 2 days Prescriptions: No Action Eliquis 5 mg tablet 5 mg PO BID Qty: 180 5RF furosemide 20 mg tablet 20 mg PO DAILY Qty: 90 1RF atorvastatin 40 mg tablet 40 mg PO BEDTIME Qty: 90 1RF Physicians EZ Use B-12 1,000 mcg/mL kit 100 mcg IM DAILY Qty: 1 0RF Rx Instructions: needs 1000 mcg daily for 6 days , then weekly for 3 weeks , then monthly. albuterol sulfate 90 mcg/actuation HFA aerosol inhaler 2 puff inhalation Q4-6H PRN (Reason: Shortness Of Breath Or Wheezing) Trelegy Ellipta 100-62.5-25 mcg blister with device 1 puff inhalation DAILY paroxetine HCl 10 mg tablet 10 mg PO DAILY pantoprazole 40 mg tablet,delayed release (DR/EC) 40 mg PO DAILY Qty: 30 5RF cholecalciferol (vitamin D3) 1,250 mcg (50,000 unit) capsule 1,250 mcg PO QWEEK 90 Days Qty: 13 0RF Referrals: Jessica Cotton MD [Primary Care Provider] - 2 days
[2022-04-05 14:57] VITALS: BP 117/36; BP 153/75; PULSE 70; PULSE 76; RESP 16; TEMP 36.6; O2SAT 96; BMI 22.6
[2022-04-05 15:13] LABS: MANUAL DIFF FLAG NO
[2022-04-05 15:16] LABS: Basophils Percent Auto 0.3 % (0-2); Eosinophils Absolute Auto 0.4 X10*3/uL (0.0-0.4); Eosinophils Percent Auto 5.4 % (0-4); Imm Gran Abs Auto 0.05 X10*3/uL (0.00-0.03); Imm Gran Pct Auto 0.8 % (0.0-0.4); Lymphocytes Absolute Auto 0.5 X10*3/uL (1.2-4.9); Lymphocytes Percent Auto 7.4 % (20-40); Mean Corpuscular HGB Conc 32.1 g/dl (31.0-35.0); Mean Corpuscular Hemoglobin 28.3 pg (27.0-33.0); Mean Corpuscular Volume 88.1 fL (80.0-98.0); Mean Platelet Volume 9.7 fL (9.4-12.3); Monocytes Absolute Auto 0.4 X10*3/uL (0.1-1.2); Monocytes Percent Auto 6.7 % (2-11); Neutrophils Absolute Auto 5.2 x10*3/uL (2.0-8.3); Neutrophils Percent Auto 79.4 % (45-73); Platelet Count 206 X10*3/uL (160-400); Red Blood Count 3.18 X10*6/uL (4.20-5.50); Red Cell Distribution Width 13.3 % (11.0-16.0); White Blood Count 6.5 X10*3/uL (4.8-10.8)
[2022-04-05 15:20] LABS: INTERNATIONAL NORM RATIO 1.7 (0.9-1.1); Prothrombin Time 19.2 SEC (9.9-13.0)
[2022-04-05 15:35] LABS: Alanine Aminotransferase 10 U/L (0-31); Albumin Level 3.3 g/dL (3.5-5.0); Alkaline Phosphatase 87 U/L (39-117); Anion Gap 13 (12-20); Aspartate Amino Transferase 13 U/L (5-31); Bilirubin Direct 0.3 mg/dL (0.0-0.5); Bilirubin Total 0.6 mg/dL (0.0-1.0); Blood Urea Nitrogen 30 mg/dL (9-16); Calcium 8.4 mg/dL (8.4-10.2); Carbon Dioxide 26 mmol/L (22-29); Chloride 108 mmol/L (96-108); Estimated Glomerular Filt Rate 44; Glucose Random 100 mg/dL (60-115); Magnesium 1.8 mg/dL (1.6-2.6); Potassium 3.4 mmol/L (3.3-5.1); Sodium 144 mmol/L (135-145); Total Protein 5.4 g/dL (6.5-8.0); Troponin-I High Sensitivity 6.3 ng/L (<3.5-17.0)
[2022-04-05 15:36] LABS: COVID-19 Test Negative (Negative); IDNOW Serial# 08D9AD1C
[2022-04-05 17:48] LABS: Hematocrit 28.7 % (37.0-47.0); Hemoglobin 9.1 g/dl (12.0-16.0); Mean Corpuscular HGB Conc 31.7 g/dl (31.0-35.0); Mean Corpuscular Hemoglobin 28.1 pg (27.0-33.0); Mean Corpuscular Volume 88.6 fL (80.0-98.0); Mean Platelet Volume 9.8 fL (9.4-12.3); Platelet Count 214 X10*3/uL (160-400); Red Blood Count 3.24 X10*6/uL (4.20-5.50); Red Cell Distribution Width 13.2 % (11.0-16.0); White Blood Count 8.8 X10*3/uL (4.8-10.8)
[2022-04-05 18:07] LABS: Troponin-I High Sensitivity 9.3 ng/L (<3.5-17.0)
[2022-04-05 18:20] VITALS: BP 146/66; PULSE 67; RESP 18; TEMP 36.8; O2SAT 96
[2022-04-05 19:03] LABS: Appearance Urine HAZY; Color Urine YELLOW; Glucose Urine UA NEG (NEG); Leukocyte Esterase Urine NEG (NEG); Nitrite Urine NEG (NEG); PH 5.5 (5.0-8.0); UACC Culture Trigger NO; Urine Blood 3+ (NEG); Urine Ketones NEG (NEG); Urine Protein TRACE MG/DL (NEG-TRACE)
[2022-04-05 19:18] LABS: WBC Urine 0 /HPF (0-4)
[2022-04-05 19:19] LABS: Bacteria Urine 1+ /LPF
[2022-04-05 20:00] VITALS: BP 142/62; PULSE 69; RESP 16; TEMP 36.6; O2SAT 99
== END 2022-04-05 20:06 | disposition home or self-care (01) ==
PROVIDERS: Emergency Provider Emergency Medicine; PCP Internal Medicine
DX: S00.83XA Contusion of other part of head, initial encounter (principal); S51.011A Laceration without foreign body of right elbow, initial encounter; S50.311A Abrasion of right elbow, initial encounter; W17.89XA Other fall from one level to another, initial encounter; R31.21 Asymptomatic microscopic hematuria; Z91.81 History of falling; Z20.822 Contact with and (suspected) exposure to COVID-19; Y93.9 Activity, unspecified; Y92.039 Unspecified place in apartment as the place of occurrence of the external cause; Y99.9 Unspecified external cause status; Z79.01 Long term (current) use of anticoagulants; Z86.73 Personal history of transient ischemic attack (TIA), and cerebral infarction without residual deficits
CPT/HCPCS: 36415; 70450; 70486; 71045; 72125; 80048; 80076; 81001; 83735; 84484; 85025; 85027; 85610; 87635; 93005; 99284

== ENCOUNTER 2022-05-29 09:51 | Outpatient (REF) | payer MEDICARE, SELFPAY ==
[2022-05-29 14:44] LABS: Urine Cytology See Pathology rpt
== END 2022-05-29 09:52 | disposition home or self-care (01) ==
LOC: HO.LNP 09:51
PROVIDERS: PCP Internal Medicine
DX: R31.29 Other microscopic hematuria (principal)
CPT/HCPCS: 88112; 99202

== ENCOUNTER → 2022-06-19 14:27 | Outpatient (BNVA) | payer MEDICARE, SELFPAY | PROVIDERS: PCP Internal Medicine; Visit Provider Psychiatry & Neurology Neurology | DX: R26.9 Unspecified abnormalities of gait and mobility (principal); I69.30 Unspecified sequelae of cerebral infarction | CPT/HCPCS: 99202 ==

== ENCOUNTER → 2022-08-07 13:01 | Outpatient (BNVA) | payer MEDICARE, SELFPAY | PROVIDERS: PCP Internal Medicine; Visit Provider Internal Medicine Pulmonary Disease | DX: J44.9 Chronic obstructive pulmonary disease, unspecified (principal) | CPT/HCPCS: 99212 ==

== ENCOUNTER 2022-09-27 09:46 | Outpatient (REF) | payer MEDICARE, SELFPAY ==
[2022-09-27 11:08] LABS: MANUAL DIFF FLAG NO
[2022-09-27 11:23] LABS: Basophils Absolute Auto 0.1 X10*3/uL (0.0-0.2); Basophils Percent Auto 0.8 % (0-2); Eosinophils Absolute Auto 0.6 X10*3/uL (0.0-0.4); Eosinophils Percent Auto 7.1 % (0-4); Hemoglobin 11.7 g/dl (12.0-16.0); Imm Gran Abs Auto 0.04 X10*3/uL (0.00-0.03); Imm Gran Pct Auto 0.5 % (0.0-0.4); Lymphocytes Absolute Auto 1.1 X10*3/uL (1.2-4.9); Lymphocytes Percent Auto 14.1 % (20-40); Mean Corpuscular HGB Conc 31.6 g/dl (31.0-35.0); Mean Corpuscular Volume 91.8 fL (80.0-98.0); Mean Platelet Volume 10.3 fL (9.4-12.3); Monocytes Absolute Auto 0.7 X10*3/uL (0.1-1.2); Monocytes Percent Auto 8.7 % (2-11); Neutrophils Absolute Auto 5.3 x10*3/uL (2.0-8.3); Neutrophils Percent Auto 68.8 % (45-73); Platelet Count 259 X10*3/uL (160-400); Red Blood Count 4.03 X10*6/uL (4.20-5.50); Red Cell Distribution Width 13.2 % (11.0-16.0); White Blood Count 7.7 X10*3/uL (4.8-10.8)
[2022-09-27 12:13] LABS: Cholesterol 169 mg/dL; HDL Cholesterol 70 mg/dL; Iron 62 mcg/dL (30-160); LDL Cholesterol Calculated 77 mg/dl; Percent Iron Saturation 19 % (15-50); TSH reflex Free T4 6.65 uIU/mL (0.32-4.0); Total Iron Binding Capacity 320 mcg/dL (228-428); Triglycerides 114 mg/dL; Unsaturated Iron Binding 258 ug/dL; Vitamin D 25-OH Total 64.3 ng/mL (>30)
[2022-09-27 12:39] LABS: Folate 10.2 ng/mL (> or = 4.0); Vitamin B12 992 pg/mL (200-900)
[2022-09-27 13:22] LABS: Free T4 (Free Thyroxine) 1.24 ng/dL (0.71-1.85)
== END 2022-09-27 09:47 | disposition home or self-care (01) ==
LOC: HO.HMGCLDS 09:46
PROVIDERS: PCP Internal Medicine; Visit Provider Internal Medicine
DX: E53.8 Deficiency of other specified B group vitamins (principal); E55.9 Vitamin D deficiency, unspecified; I69.30 Unspecified sequelae of cerebral infarction; R31.29 Other microscopic hematuria; D64.9 Anemia, unspecified
CPT/HCPCS: 36415; 80061; 82306; 82607; 82746; 83540; 84439; 84443; 85025

== ENCOUNTER → 2022-10-12 13:05 | Outpatient (BNVA) | payer MEDICARE, SELFPAY | PROVIDERS: PCP Internal Medicine; Visit Provider Urology | DX: R31.0 Gross hematuria (principal); R32 Unspecified urinary incontinence | CPT/HCPCS: Q3014 ==

== ENCOUNTER → 2022-11-02 14:30 | Outpatient (BNVA) | payer MEDICARE, SELFPAY | PROVIDERS: PCP Internal Medicine; Visit Provider Urology | DX: R31.0 Gross hematuria (principal); I69.951 Hemiplegia and hemiparesis following unspecified cerebrovascular disease affecting right dominant side; I69.991 Dysphagia following unspecified cerebrovascular disease; I69.920 Aphasia following unspecified cerebrovascular disease; Z87.891 Personal history of nicotine dependence; Z79.01 Long term (current) use of anticoagulants | CPT/HCPCS: 52000; 99212 ==

== ENCOUNTER 2022-11-13 14:22 | Outpatient (REF) | payer MEDICARE, SELFPAY ==
--- NOTE | ~2022-11-13 | US_ITS ---
EXAMINATION: US RETROPERITONEAL LIMITED (RENAL ONLY) CLINICAL INFORMATION: Other microscopic hematuria. COMPARISON: None TECHNIQUE: Real-time imaging of the kidneys. FINDINGS: RIGHT KIDNEY: 10.0 x 3.9 x 3.2 cm (SAG x AP x TRV). The kidney is normal in size, contour, and echogenicity. Cortical thinning No calculi or focal parenchymal lesions. No hydronephrosis. LEFT KIDNEY: 9.4 x 3.9 x 3.8 cm (SAG x AP x TRV). The kidney is normal in size, contour, and echogenicity. No renal calculi or hydronephrosis. Cortical thinning. Lower pole cyst measures 2 cm appears simple Bosniak 1. No follow-up indicated US/US renal BI IMPRESSION: Cortical thinning. No obstructive uropathy. No stones.
== END 2022-11-13 14:23 | disposition home or self-care (01) ==
LOC: HO.US 14:22
PROVIDERS: Visit Provider Urology
DX: R31.29 Other microscopic hematuria (principal)
CPT/HCPCS: 76775

== ENCOUNTER 2022-11-20 07:28 | Day surgery (SDC) | payer MEDICARE, SELFPAY ==
--- NOTE | 2022-11-19 09:53 | HO.ANESPROP2 ---
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 Active Problems Active Problems: All Active Problems (Updated 11/02/22 @ 15:39 by David Arthur MD) Bladder mass (Acute) Urinary incontinence (Acute) Gross hematuria (Acute) Generalized anxiety disorder (Acute) Gait disorder (Acute) Microhematuria (Acute) Vitamin D deficiency (Acute) COPD (chronic obstructive pulmonary disease) (Acute) History of CVA with residual deficit (Acute) Anemia (Acute) Vitamin B12 deficiency (Acute) Past Medical History Medical History Anemia COPD (chronic obstructive pulmonary disease) Generalized anxiety disorder History of CVA with residual deficit Vitamin B12 deficiency Vitamin D deficiency Family History Family History Son Seizures Other No family history of cerebrovascular accident (CVA) Surgical History Surgical History No pertinent past surgical history Social History Social History Household Members: None Household Members Other:: daughter, son live near Housing: [facility] Do you presently have visiting nurse or other home services: Yes (visiting nurse, PT, OT speech therapist) Alcohol intake: never Patient Tobacco Use Status: Former Tobacco user Quit Date: 35 years ago e-Cigarette/Vaping Use: Never Used Use of substances other than those prescribed or required for medical reasons: No Are you DNR?: No Advance Directives: No Advance Directives Information Provided: Yes Advance Directives Date on File: 12/06/21 service: No Current occupational status: retired Cognitive needs: No Hearing needs: Yes Vision needs: Yes Meds Allergies Allergy/AdvReac Type Severity Reaction Status Date / Time Penicillins AdvReac rash Verified 11/02/22 14:34 Home Medications Medication Instructions Recorded Confirmed Last Taken Type fluticasone fur. 100 mcg-umeclid 1 puff inhalation DAILY 11/11/21 11/02/22 11/20/22 History 62.5 mcg-vilant 25 mcg inhalat.powder (Trelegy Ellipta) paroxetine HCl 10 mg tablet 10 mg PO DAILY 12/28/21 11/20/22 Unknown History Exam Exam Date and Time: November 19, 2022 0953 Pertinent Lab Results Pertinent Lab Results: Laboratory Tests 04/05/22 09/27/22 15:10 09:52 WBC 7.7 Hgb 11.7 L D Hct 37.0 D Plt Count 259 Sodium 144 Potassium 3.4 Chloride 108 Carbon Dioxide 26 BUN 30 H Creatinine 1.16 Narrative Narrative: EKG 03/2022 Vent. Rate : 060 BPM ? ? Atrial Rate : 060 BPM ?? P-R Int : 154 ms? QRS Dur : 080 ms ? ? QT Int : 406 ms ? ? ? P-R-T Axes : 073 034 057 degrees ?? QTc Int : 406 ms ? Normal sinus rhythm Normal ECG When compared with ECG of 05-DEC-2021 16:28, No significant change was found Assessment and Plan Assessment Anesthesia Assessment: Chart Reviewed Documented by User: Hayden Sanchez MD 11/20/22 09:10 [facility] Past Medical History Medical History Anemia COPD (chronic obstructive pulmonary disease) Generalized anxiety disorder History of CVA with residual deficit Vitamin B12 deficiency Vitamin D deficiency Family History Family History Son Seizures Other No family history of cerebrovascular accident (CVA) Family history of problems with anesthesia: No Surgical History Surgical History No pertinent past surgical history History of Problems with Anesthesia: No Social History Social History Household Members: None Household Members Other:: daughter, son live near Housing: [facility] Do you presently have visiting nurse or other home services: Yes (visiting nurse, PT, OT speech therapist) Alcohol intake: never Patient Tobacco Use Status: Former Tobacco user Quit Date: 35 years ago e-Cigarette/Vaping Use: Never Used Use of substances other than those prescribed or required for medical reasons: No Are you DNR?: No Advance Directives: No Advance Directives Information Provided: Yes Advance Directives Date on File: 12/06/21 service: No Current occupational status: retired Cognitive needs: No Hearing needs: Yes Vision needs: Yes Meds Allergies Allergy/AdvReac Type Severity Reaction Status Date / Time Penicillins AdvReac rash Verified 11/02/22 14:34 Home Medications Medication Instructions Recorded Confirmed Last Taken Type fluticasone fur. 100 mcg-umeclid 1 puff inhalation DAILY 11/11/21 11/02/22 11/20/22 History 62.5 mcg-vilant 25 mcg inhalat.powder (Trelegy Ellipta) paroxetine HCl 10 mg tablet 10 mg PO DAILY 12/28/21 11/20/22 Unknown History Exam Airway Mallampati Class: II TM Dist: >3cm Neck ROM: Full Denture: Upper and Lower Loose/Missing/Broken Teeth: No Heart: ok Lungs: ok Assessment and Plan Final Anesthetic Review Family History of Problems with Anesthesia: No History of Problems with Anesthesia: No NPO: Yes ASA Class: IV Final Preanesthetic Review: No Changes in Pt Med Stat, Meds/Allgs Chart Reviewed, Consent Obtained/Reviewed and Anes Risks/Benef Reviewed Patient Risk: High Procedure Risk: Low Anesthetic Plan Anesthetic Plan: GA and Agree w/ Assess. and Plan Disposition: Standard PACU
[2022-11-20] VITALS (21 sets, daily range): BP systolic 101–172; BP diastolic 49–119; PULSE 48–72; RESP 14–97; TEMP 36.2–36.7; O2SAT 90–99; BMI 23.5
--- NOTE | 2022-11-20 06:38 | MHC.SHP ---
Pre-Procedural Eval Section A Date of Service: 11/20/22 Section B Chief Complaint: Other specified disorders of bladder Allergies: Allergies Allergy/AdvReac Type Severity Reaction Status Date / Time Penicillins AdvReac rash Verified 11/02/22 14:34 Plan Diagnosis/Plan: Unchanged I have reviewed the history and physical and performed a pertinent physical examination on my patient. No changes have occurred unless specified. Cystoscopy Transurethral resection of bladder tumor Time Spent With Patient Time: Total time managing care of this patient today ____ minutes.
[2022-11-20 08:10] LABS: COVID-19 Test Negative (Negative); IDNOW Serial# 9DB6401D
[2022-11-20] MEDS: Lactated Ringers 1,000 ML 100 ML IVCONT (08:26)
--- NOTE | 2022-11-20 08:42 | PC.NURSE ---
pt unsure of meds taken today, except iron & trilegy she took , spoke with dtr Juana who is not sure either. medications will need to be confirmed later. Pt aware that she took blood thinner one week ago. Daughter and pt aware.
--- NOTE | 2022-11-20 09:02 | PC.NURSE ---
medications confirmed, via list
--- NOTE | 2022-11-20 10:14 | W.PM.OPN ---
Operative Note Operative Note Date of Service: 11/20/22 Narrative: PREOP DIAGNOSIS: Bladder tumors POSTOP DIAGNOSIS: Bladder tumors PROCEDURE: CYSTOSCOPY TRANSURETHRAL RESECTION OF BLADDER TUMOR, FULGURATION Anesthesia: General Surgeon Dr. Ferreira Indications: Gross hematuria, office cystoscopy noted papillary bladder lesions Findings: erythematous changes noted on the posterior wall as well as palliary lesions that measeared width 3 - 5 cm. Details of procedure: The patient was brought into the operating room placed on the OR table in supine position. Antibiotics confirmed. General anesthesia was administered. The patient was repositioned into lithotomy position, prepped and draped in the usual sterile fashion. Time-out was done per protocol. The 24 Guyanese resectoscope with obturator was passed transurethrally into the bladder. Visualization of the bladder noted erythematous changes on the posterior wall as well as papillary lesions that had width 3-5 cm. The resectoscope was removed and the cystoscope was placed transurethrally and a biopsy was taken from the erythematous lesion posterior wall and random biopsy right lateral wall. The resectoscope was replaced. The bladder lesion had papillary fronds, was not dense and grossly appeared low grade; and due to the width the lesions involved- the posterior bladder wall extending to the left side posterior lateral wall the tumor was partially resected and fulgurated. The loop resectoscope was used to resect and the rollerball attachment was also used to fulgurate the the bladder lesions. Once there was good hemostasis the resectoscope was removed. A [address] 5 cc balloon was passed without difficulty. The patient was brought out of anesthesia and taken to recovery in stable condition. Complications: None Drains: [address] 5 cc balloon- 12 mL sterile water filled the balloon
[2022-11-20] MEDS: fentaNYL citrate/PF 100 MCG/2 ML VIAL 25 MCG IVPUSH (10:34)
[2022-11-20] MEDS: oxyCODONE HCl Immed Release 5 MG TABLET PO (10:38)
[2022-11-20] MEDS: Acetaminophen 325 MG TABLET 650 MG PO (10:38)
[2022-11-20] MEDS: Albuterol Sulfate (0.083%) 2.5 MG/3 ML VIAL.NEB INHALE (15:32)
== END 2022-11-20 16:32 ==
LOC: HO.SSS 07:28
PROVIDERS: PCP Internal Medicine; Visit Provider Urology
PROC: 0TBB8ZZ Excision of Bladder, Via Natural or Artificial Opening Endoscopic (ICD-10-PCS; CPT 52235; principal; 2022-11-20 09:40)
DX: C67.8 Malignant neoplasm of overlapping sites of bladder (principal); R39.15 Urgency of urination; R32 Unspecified urinary incontinence; I69.951 Hemiplegia and hemiparesis following unspecified cerebrovascular disease affecting right dominant side; I69.928 Other speech and language deficits following unspecified cerebrovascular disease; I69.991 Dysphagia following unspecified cerebrovascular disease; D64.9 Anemia, unspecified; J44.9 Chronic obstructive pulmonary disease, unspecified; E55.9 Vitamin D deficiency, unspecified; E53.8 Deficiency of other specified B group vitamins; Z79.01 Long term (current) use of anticoagulants; Z79.51 Long term (current) use of inhaled steroids; Z79.899 Other long term (current) drug therapy; Z88.0 Allergy status to penicillin; Z20.822 Contact with and (suspected) exposure to COVID-19; Z87.891 Personal history of nicotine dependence
CPT/HCPCS: 52235; 87635; 88305; 88307; 88342; 94640; J1885; J1956; J2405; J3010

== ENCOUNTER → 2022-11-26 09:49 | Outpatient (BNVA) | payer MEDICARE, SELFPAY | PROVIDERS: PCP Internal Medicine; Visit Provider Urology | DX: Z13.89 Encounter for screening for other disorder (principal) ==

== ENCOUNTER → 2022-12-04 09:36 | Outpatient (BNVA) | payer MEDICARE, SELFPAY | PROVIDERS: PCP Internal Medicine; Visit Provider Nurse Practitioner Family | DX: D09.0 Carcinoma in situ of bladder (principal); R31.29 Other microscopic hematuria; R32 Unspecified urinary incontinence | CPT/HCPCS: 99212 ==

== ENCOUNTER 2022-12-18 13:08 | Outpatient (AMB) | payer MEDICARE, SELFPAY ==
--- NOTE | 2022-12-18 13:45 | MHC.PC.OV ---
Vital Signs 12/18/22 14:01 Height 5 ft 7 in Weight 153 lb BMI 23.9 BP 104/70 Blood Pressure Location Rt brachial Position Sitting Pulse 84 Pulse Source Pulse Oximeter Pulse Oximetry (%) 96 Oxygen Delivery Method Room Air Intake Visit Reasons: Follow up/missed appt Sep 27 Intake Note: Pt is here today for her f/u Allergies Penicillins Adverse Reaction (Verified 06/20/23 16:34) rash Medication List - Last Reconciled 12/18/22 by Jessica Cotton MD apixaban (Eliquis) 5 mg PO BID atorvastatin 40 mg PO BEDTIME Combivent Respimat 20-100 mcg/actuation (ipratropium-albuterol) 1 puff inhalation Q6H 30 days NS cyanocobalamin (vitamin B-12) (Physicians EZ Use B-12) 100 mcg (0.1 mL) IM DAILY ferrous fumarate 324 mg PO DAILY oawzoejeujv-qafsusnad-znnrnrew 100-62.5-25 mcg (Trelegy Ellipta) 1 puff inhalation DAILY furosemide 20 mg PO DAILY pantoprazole 40 mg PO DAILY paroxetine HCl 10 mg PO DAILY Tobacco use date assessed: 12/18/22 Fall risk assessment: 1 Fall in past year Last assessed Fall Risk: 12/18/22 HPI Follow up/missed appt Sep 27 HPI Details 88-year-old lady with COPD, generalized anxiety disorder, history of CVA, here today for follow-up . She is s/p cystoscopy with transurethral resection of bladder tumor and fulguration on 11/20/[address] Ferreira. She has been feeling very tired, no energy ever since procedure. She also continues to have urinary urgency and incontinence, however reports this has been her baseline for quite some time now. 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 Her last complete blood count done September 2022 showed presence PFSH Medical History (Updated 06/20/23 @ 16:51 by Jessica Cotton MD) Anemia Bladder mass COPD (chronic obstructive pulmonary disease) Generalized anxiety disorder Gross hematuria History of CVA with residual deficit Microhematuria Positional lightheadedness Urinary incontinence Vitamin B12 deficiency Vitamin D deficiency Surgical History No pertinent past surgical history Family History Son Seizures Other No family history of cerebrovascular accident (CVA) Social History Household Members: None Household Members Other:: daughter, son live near Housing: [facility] Do you presently have visiting nurse or other home services: Yes (visiting nurse, PT, OT speech therapist) Alcohol intake: never Patient Tobacco Use Status: Former Tobacco user Quit Date: 35 years ago e-Cigarette/Vaping Use: Never Used Advance Directives Date on File: 12/06/21 service: No Current occupational status: retired Cognitive needs: No Hearing needs: Yes Vision needs: Yes Questionnaire PHQ-9 Over the last 2 weeks, how often have you been bothered by any of the following problems? 1. Little interest or pleasure in doing things: not at all 2. Feeling down, depressed, or hopeless: not at all 3. Trouble falling or staying asleep, or sleeping too much: not at all 4. Feeling tired or having little energy: not at all 5. Poor appetite or overeating: not at all 6. Feeling bad about yourself - or that you are a failure or have let yourself or your family down: not at all 7. Trouble concentrating on things, such as reading the newspaper or watching television: not at all 8. Moving or speaking so slowly that other people could have noticed. Or the opposite - being so fidgety or restless that you have been moving around a lot more than usual: not at all 9. Thoughts that you would be better off or of hurting yourself in some way: not at all Total score: 0 Depression Screening Interpretation: Negative 81346 - PHQ-9 Billing: Yes Source: Developed by Drs. Vinicio Kauffman, Veronika Kurtz, Epifanio Fontenot and colleagues, with an educational fanny from [employer]. Thrive Questionnaire Declines Thrive assessment: No Date Thrive assessed: 12/18/22 I am a: Patient What is your living situation today?: I have a steady place to live Within the past 12 months, did the food you bought not last and you didn't have the money to get more?: Never true Within the past 12 months, did you worry whether your food would run out before you got money to buy more?: Never true Do you have trouble paying for medicines?: No Do you have trouble getting transportation to medical appointments?: Yes Do you have trouble paying your heating and electricity bill?: No Do you have trouble taking care of your child, family member or friend?: No Do you have trouble with day-to-day activities such as bathing, preparing meals, shopping, managing finances, etc.?: Yes Are you currently unemployed and looking for a job?: No Are you interested in more education?: No DAXA-7 AMB Questionnaire DAXA-7 Date DAXA - 7 assessed: 12/18/22 Feeling nervous, anxious, or on edge: 0 = Not at all Not being able to stop or control worryin = Not at all Worrying too much about different things: 0 = Not at all Trouble relaxin = Not at all Being so restless that it is hard to sit still: 0 = Not at all Becoming easily annoyed or irritable: 0 = Not at all Feeling afraid as if something awful might happen: 0 = Not at all Total DAXA-7 score (0-4 normal; 5-9 mild; 10-14 moderate; 15-21 severe): 0 Source: Developed by Drs. Vinicio Kauffman, Veronika Kurtz, Epifanio Fontenot and colleagues, with an educational fanny from [employer]. DAXA-7 Assessment Billing DAXA-7 Assessment Tool: DAXA-7 Assessment 76140 Review of Systems Const Denies body aches, Denies fever(s), Denies headache(s), Reports lethargy and Reports malaise Eyes Denies change in vision ENT Denies headache(s), Denies nasal congestion, Denies post nasal drip and Denies sinus pressure Card Denies chest pain, Denies pedal edema and Denies dyspnea Resp Denies cough, Denies hemoptysis and Denies dyspnea GI Denies abdominal pain and Denies heartburn Reports no additional complaints, Denies hematuria, Denies urinary frequency and Denies difficulty voiding Musc Denies myalgias and Denies joint swelling Skin/Breast Denies rash Neuro Denies headache(s) and Denies seizure-like activity Psych Reports no additional complaints Endo Denies heat intolerance Ry/Lymph Denies easy bleeding and Denies easy bruising Aller/Immun Denies seasonal rhinorrhea Physical exam (Primary Care) Vital Signs: Last Vital Signs Pulse 84 12/18/22 14:01 BP 104/70 12/18/22 14:01 Pulse Ox 96 12/18/22 14:01 Oxygen Delivery Method Room Air 12/18/22 14:01 BMI result Body Mass Index 23.9 Tobacco/Smoking Status: Tobacco use Status Tobacco use date assessed 12/18/22 12/18/22 13:57 Patient Tobacco Use Status Former Tobacco user 12/18/22 13:45 e-Cigarette/Vaping Use Never Used 12/18/22 13:45 PHQ-9: PHQ-9 Score PHQ-9: Total score 0 12/18/22 14:22 Depression Screening Interpretation: Negative Thrive Assessment: Date of Thrive Assessment Date Thrive assessed 12/18/22 12/18/22 14:14 Const Nutritional Appearance: average body habitus Orientation/consciousness: patient oriented x3 HENMT Head: Yes normocephalic General nose exam: Normal external nose present Face and sinus: Yes normal facial exam and Yes sinuses nontender Mouth: Normal oral and palatal mucosa present and moist mucous membranes Eyes General: appearance normal, both eyes and all related structures Neck Other: Supple, no lymphadenopathy Resp Auscultation: clear to auscultation bilaterally Cardio Other: S1-S2 present regular rate and rhythm GI Palpation (GI): Soft to palpation, nontender and no guarding Auscultation: normal bowel sounds General: Yes no CVA tenderness Back/Spine/Pelvis Back: no CVA tenderness and No back tenderness Thoracic/Lumbar Spine: kyphosis Neuro General: patient oriented x3, moves all extremities, Normal light touch and pain sensation, no focal motor deficits and CN's II-XI intact bilaterally Gait exam (Neuro): Assisted gait required Gait assisted method: walker Extrem General: Yes no joint enlargement, Yes no pedal edema and Yes no calf tenderness Results Reviewed Results Reviewed: SPEC : [id number] ALEJANDRO: 09/27/22 STATUS: COMP REQ : [id number] RECD: 09/27/[address]: Jessica Cotton MD COMP: 09/27/22 ENTERED: 09/27/[address] [facility] [address]: ORDERED: CBC Auto Diff Test Result Flag Reference Site WBC 7.7 4.8-10.8 X10*3/uL RBC 4.03 # L 4.20-5.50 X10*6/uL HGB 11.7 # L 12.0-16.0 g/dl HCT 37.0 # 37.0-47.0 % MCV 91.8 80.0-98.0 fL MCH 29.0 27.0-33.0 pg MCHC 31.6 31.0-35.0 g/dl RDW 13.2 11.0-16.0 % PLT 259 160-400 X10*3/uL MPV 10.3 9.4-12.3 fL Neut Pct Auto 68.8 45-73 % ImGran Pct Auto 0.5 H 0.0-0.4 % Lymp Pct Auto 14.1 L 20-40 % Thayer Pct Auto 8.7 2-11 % Eos Pct Auto 7.1 H 0-4 % Baso Pct Auto 0.8 0-2 % NRBC Pct Auto 0.0 0.0-0.2 /100WBC ANC Neut Abs # 5.3 2.0-8.3 x10*3/uL ImGran Abs Auto 0.04 H 0.00-0.03 X10*3/uL Lymph Abs Auto 1.1 L 1.2-4.9 X10*3/uL Thayer Abs Auto 0.7 0.1-1.2 X10*3/uL Eos Abs Auto 0.6 H 0.0-0.4 X10*3/uL Baso Abs Auto 0.1 0.0-0.2 X10*3/uL NRBC Abs Auto 0.000 0.0-0.012 X10*3/uL Assessment and Plan Assessment & Plan (1) Anemia: Code(s): D64.9 - Anemia, unspecified Plan: Lab ordered to check CBC with differential, vitamin B12 and folic acid level, TSH with free he reflex free T4 and vitamin-D as well as basic metabolic panel. Continue taking ferrous fumarate 325 mg per tablet taken once a day an hour before breakfast. 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 TSH reflex Free T4 12/18/22 E55.9 - Vitamin D deficiency, unspecified, D64.9 - Anemia, unspecified, E53.8 - Deficiency of other specified B group vitamins, 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
[2022-12-18 14:01] VITALS: BP 104/70; PULSE 84; O2SAT 96; BMI 23.9
== END 2022-12-18 14:50 | disposition home or self-care (01) ==
LOC: HO.HMGC 13:08
PROVIDERS: PCP Internal Medicine; Visit Provider Internal Medicine
DX: D64.9 Anemia, unspecified (principal)
CPT/HCPCS: 99213

== ENCOUNTER 2022-12-18 14:34 | Outpatient (REF) | payer MEDICARE, SELFPAY ==
[2022-12-18 16:29] LABS: MANUAL DIFF FLAG NO
[2022-12-18 16:36] LABS: Basophils Percent Auto 0.5 % (0-2); Eosinophils Absolute Auto 0.4 X10*3/uL (0.0-0.4); Eosinophils Percent Auto 5.6 % (0-4); Hemoglobin 13.7 g/dl (12.0-16.0); Imm Gran Abs Auto 0.04 X10*3/uL (0.00-0.03); Imm Gran Pct Auto 0.5 % (0.0-0.4); Lymphocytes Absolute Auto 0.9 X10*3/uL (1.2-4.9); Lymphocytes Percent Auto 11.3 % (20-40); Mean Corpuscular HGB Conc 31.9 g/dl (31.0-35.0); Mean Corpuscular Hemoglobin 28.8 pg (27.0-33.0); Mean Corpuscular Volume 90.3 fL (80.0-98.0); Mean Platelet Volume 10.2 fL (9.4-12.3); Monocytes Absolute Auto 0.7 X10*3/uL (0.1-1.2); Neutrophils Absolute Auto 5.5 x10*3/uL (2.0-8.3); Neutrophils Percent Auto 73.1 % (45-73); Platelet Count 277 X10*3/uL (160-400); Red Blood Count 4.76 X10*6/uL (4.20-5.50); Red Cell Distribution Width 12.6 % (11.0-16.0); White Blood Count 7.5 X10*3/uL (4.8-10.8)
[2022-12-18 16:53] LABS: Anion Gap 12 (12-20); Blood Urea Nitrogen 31 mg/dL (9-16); Calcium 9.3 mg/dL (8.4-10.2); Carbon Dioxide 30 mmol/L (22-29); Chloride 105 mmol/L (96-108); Estimated Glomerular Filt Rate 35; Glucose Random 109 mg/dL (60-115); Potassium 3.7 mmol/L (3.3-5.1); Sodium 143 mmol/L (135-145)
[2022-12-18 17:25] LABS: Folate 11.8 ng/mL (> or = 4.0); TSH reflex Free T4 5.12 uIU/mL (0.32-4.0); Vitamin B12 > 2000 pg/mL (200-900); Vitamin D 25-OH Total 59.2 ng/mL (>30)
== END 2022-12-18 14:35 | disposition home or self-care (01) ==
LOC: HO.HMGCLDS 14:34
PROVIDERS: PCP Internal Medicine; Visit Provider Internal Medicine
DX: D64.9 Anemia, unspecified (principal); E53.8 Deficiency of other specified B group vitamins; E55.9 Vitamin D deficiency, unspecified; D09.0 Carcinoma in situ of bladder
CPT/HCPCS: 36415; 80048; 82306; 82607; 82746; 84439; 84443; 85025

== ENCOUNTER → 2023-01-25 13:04 | Outpatient (BNVA) | payer MEDICARE, SELFPAY | PROVIDERS: PCP Internal Medicine; Visit Provider Internal Medicine Pulmonary Disease | DX: J44.9 Chronic obstructive pulmonary disease, unspecified (principal); R06.09 Other forms of dyspnea | CPT/HCPCS: 99212 ==

== ENCOUNTER → 2023-02-04 10:09 | Outpatient (BNVA) | payer MEDICARE, SELFPAY | PROVIDERS: PCP Internal Medicine; Visit Provider Urology | DX: D09.0 Carcinoma in situ of bladder (principal); C67.9 Malignant neoplasm of bladder, unspecified | CPT/HCPCS: Q3014 ==

== ENCOUNTER 2023-05-08 13:19 | Outpatient (AMB) | payer MEDICARE, SELFPAY ==
[2023-05-08 13:28] VITALS: BP 120/78; PULSE 82; O2SAT 97; BMI 24.9
--- NOTE | 2023-05-08 13:28 | A.OFFVIS_ITS ---
Intake Vital Signs 05/08/23 13:28 Height 5 ft 7 in Weight 158 lb 11.725 oz BMI 24.9 BP 120/78 Pulse 82 Pulse Oximetry (%) 97 Intake Visit Reasons: COPD Intake Note: doubling up on the lasix for 5 days helped with leg swelling Allergies Penicillins Adverse Reaction (Verified 05/08/23 13:28) rash HPI COPD HPI Details 88-year-old lady, with remote history of smoking, quit over 15 years prior, now followed for moderate COPD.? Patient can longer tolerate trilogy well secondary to it being about inhaler. She does complain of increased coughing, particularly with talking. Her lower extremity edema improved significantly with increase in her diuretic. [facility] Medical History Anemia COPD (chronic obstructive pulmonary disease) Generalized anxiety disorder History of CVA with residual deficit Vitamin B12 deficiency Vitamin D deficiency Surgical History No pertinent past surgical history Family History Son Seizures Other No family history of cerebrovascular accident (CVA) Social History Household Members: None Household Members Other:: daughter, son live near Housing: [facility] Do you presently have visiting nurse or other home services: Yes (visiting nurse, PT, OT speech therapist) Alcohol intake: never Patient Tobacco Use Status: Former Tobacco user Quit Date: 35 years ago e-Cigarette/Vaping Use: Never Used Advance Directives Date on File: 12/06/21 service: No Current occupational status: retired Cognitive needs: No Hearing needs: Yes Vision needs: Yes Review of Systems Const Denies daytime sleepiness, Denies excessive sweating, Denies fatigue, Denies fever(s), Denies lethargy, Denies malaise, Denies night sweats, Denies snoring and Denies weight loss Eyes Denies blurry vision and Denies itchy eyes ENT Denies nasal congestion, Denies post nasal drip, Denies sinus pain, Denies sinus pressure and Denies other ( Thrush) Card Denies chest pain, Denies pedal edema, Denies dyspnea, Denies orthopnea and Denies paroxysmal nocturnal dyspnea Resp Denies cough, Denies hemoptysis, Denies excessive phlegm production, Denies dyspnea, Denies snoring and Denies wheezing GI Denies abdominal pain and Denies heartburn Musc Denies myalgias, Denies arthralgias and Denies joint swelling Skin/Breast Denies rash Neuro Denies memory loss and Denies seizure-like activity Psych Denies abnormal sleep pattern, Denies anxiety and Denies memory loss Endo Denies excessive sweating, Denies fatigue and Denies heat intolerance Ry/Lymph Denies easy bruising Aller/Immun Denies itchy eyes, Denies seasonal rhinorrhea and Denies wheezing Physical Exam Vital Signs: Last Vital Signs Pulse 82 05/08/23 13:28 BP 120/78 05/08/23 13:28 Pulse Ox 97 05/08/23 13:28 BMI result Body Mass Index 24.9 Const General: no acute distress and alert Nutritional Appearance: not obese Orientation/consciousness: Other orientation findings ( oriented) HEENT Head: Yes atraumatic Eyes General: appearance normal, both eyes and all related structures Sclerae: sclerae normal EOM: EOMs intact bilaterally Neck Neck: Yes supple Lymphatic: no lymphadenopathy noted Resp Effort & Inspection: normal respiratory effort and no use of accessory muscles Auscultation: clear to auscultation bilaterally Cardio Rate: regular rate Rhythm: regular rhythm Heart sounds: no gallops, no murmurs and no rubs Skin General skin exam: other ( warm) Extrem General: No clubbing, No cyanosis and No edema Assessment & Plan Assessment & Plan (1) COPD (chronic obstructive pulmonary disease): Code(s): J44.9 - Chronic obstructive pulmonary disease, unspecified Plan: Worsening control as patient does not tolerate powder inhaler well anymore. Will switch trilogy to Symbicort. Continue Combivent. Medications: New Symbicort 160-4.5 mcg/actuation (budesonide-formoterol) 2 puffs inhalation BID 10.2 grams 6RF 30 days NS Discontinued Trelegy Ellipta 100-62.5-25 mcg (qlhzsknhgia-ysceojoot-wdwqovoh) Discontinued Reason: Doctor's Order 1 ea inhalation DAILY 1 ea 2RF NS Coding Level of Care Code Est Pt Level 3 (50695) Diagnoses COPD (chronic obstructive pulmonary disease) J44.9
== END 2023-05-08 13:50 | disposition home or self-care (01) ==
PROVIDERS: PCP Internal Medicine; Visit Provider Internal Medicine Pulmonary Disease
DX: J44.9 Chronic obstructive pulmonary disease, unspecified (principal)
CPT/HCPCS: 99213

== ENCOUNTER → 2023-05-08 13:19 | Outpatient (BNVA) | payer MEDICARE, SELFPAY | PROVIDERS: PCP Internal Medicine; Visit Provider Internal Medicine Pulmonary Disease | DX: J44.9 Chronic obstructive pulmonary disease, unspecified (principal); Z87.891 Personal history of nicotine dependence | CPT/HCPCS: 99212 ==

== ENCOUNTER 2023-05-15 13:09 | Outpatient (AMB) | payer MEDICARE, SELFPAY ==
--- NOTE | 2023-05-15 12:43 | MHC.OFFVIS ---
Intake Intake Visit Reasons: cysto/was not able to get clearance Intake Note: Patient presents today for a CYSTOSCOPY Procedure: Meds: None Allergies to Antibiotic: Penicillin Blood Thinner: Eliquis & Furosemide Urinalysis test clear for Cysto Disposible Uro-G Cystoscope Cannula: Lot: [id number] Exp: 04/12/2025 Technical Cable Jointer Required: No Accompanied by: Self / Same As Patient Allergies Penicillins Adverse Reaction (Verified 07/02/23 13:29) rash HPI HPI Comments History of Present Illness Details Joy is an 88-year-old female who presents to the clinic today for an office cystoscopy. 05/15/23-- The patient is an 88-year-old female who was initially seen by me on 11/02/22 for office cystoscopy. At that time, she was noted to have a large papillary bladder mass. She underwent cystoscopy, TURBT on 11/20/22. She completed a 6-week course of gemcitabine?bladder installation. She had follow-up cystoscopy done in January. At that time, there were some papillary tumors noted and the plan was for repeat cystoscopy, bladder biospsies, and TUR. She did not get medical clearance for that procedure and she is here in follow-up in the interim. 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 Evaluation today-- Cystoscopy performed today again shows multiple small papillary lesions. The patient also complains of urinary incontinence. On exam, there is some mild skin irritation on the perineum which is likely secondary to urine that is constantly pressing on skin. Plan: I discussed with the patient that if we are not able to get clearance to stop her Eliquis that the lesions are small enough to be fulgurated and we can consider a repeat course of the bladder installation at gemcitabine therapy. Prescribed Gemtesa 75 mg daily. [facility] Medical History (Updated 07/04/23 @ 13:55 by Briana Oshea RN) Cerebral aneurysm GERD (gastroesophageal reflux disease) Bladder cancer Positional lightheadedness Urinary incontinence Generalized anxiety disorder Microhematuria History of CVA with residual deficit Anemia COPD (chronic obstructive pulmonary disease) Surgical History (Updated 07/04/23 @ 13:54 by Briana Oshea RN) Hx of bilateral cataract extraction S/P cerebral aneurysm repair H/O transurethral resection of bladder tumor (TURBT) Family History Son Seizures Other No family history of cerebrovascular accident (CVA) Social History Household Members: None Household Members Other:: daughter, son live near Housing: [facility] Are you a primary respiratory care faculty to a significant other at home: No Do you presently have visiting nurse or other home services: Yes (home health aid) Alcohol intake: never Patient Tobacco Use Status: Former Tobacco user Quit Date: age 58 Tobacco use type: Cigarette e-Cigarette/Vaping Use: Never Used Advance Directives Date on File: 12/06/21 service: No Current occupational status: retired Cognitive needs: No Hearing needs: Yes Vision needs: Yes Review of Systems Const All systems reviewed & are unremarkable except as noted in HPI and below Reports no additional complaints Eyes Reports no additional complaints ENT Reports no additional complaints Card Denies dyspnea Resp Denies cough and Denies dyspnea GI Reports no additional complaints Reports no additional complaints Musc Reports no additional complaints Skin/Breast Denies rash and Denies unusual bruising Neuro Reports no additional complaints Psych Reports no additional complaints Endo Reports no additional complaints Ry/Lymph Reports no additional complaints Aller/Immun Reports no additional complaints Office Procedures Cystoscopy Consent Discussed risk and benefit or proposed procedure with the patient. Information consent for procedure given to the patient. Discussed technical aspects, risks, benefits and alternatives in full. Addressed all of the patient's questions and concerns regarding the procedure. The patient demonstrated knowledge and understanding. They wish to proceed with this procedure. Preparation The patient was prepped in the usual manner. A briquette machine operator was present and in the room. Genitalia was prepped with betadine solution in a sterile manner. Lidocaine Jelly 2% was placed into the urethra and 16Fr flexible Olympus cystoscope was inserted into the meatus after adequate lubrication. Procedure Time out per protocol performed. Bladder Inspection Bladder Inspection: The bladder was inspected in its entirety with utilization retroflexion displaying: Tumor(s): multifocal small papillary bladder lesions Trabeculation: mild/mod Mucosal Erthema: N/A Orifices: normal shape and position Urethra: normal Cystoscopy findings: as above. [id number] DISPOSABLE SCOPE URO-G FLEXIBLE SCOPE Procedure code (CPT) selection complete Office Meds lidocaine HCl 2 % mucosal jelly in applicator Performing Provider: David Arthur MD Per[facility] Documented (not given) by: David Arhtur MD on 05/15/23 14:50 Dose Route Admin Location Dispensed Lot Number Expiration Date ND Pipe Manufacture Supervisor 10 mL intra-urethral mL naproxen 500 mg tablet Performing Provider: David Arthur MD Performing Location: [facility] Documented (not given) by: David Arthur MD on 05/15/23 14:50 Dose Route Admin Location Dispensed Lot Number Expiration Date NDC Pipe Manufacture Supervisor 500 mg PO tab ciprofloxacin HCl 500 mg tablet Performing Provider: David Arthur MD Performing Location: [facility] Documented (not given) by: David Arthur MD on 05/15/23 14:50 Dose Route Admin Location Dispensed Lot Number Expiration Date NDC Pipe Manufacture Supervisor 500 mg PO tab Results AMB Urinalysis, Automated UA Leukoctes 0 Monico/uL Last Edit by Mark Sun [facility] on 05/15/23 14:20 UA Nitrite Negative Last Edit by Mark Sun [facility] on 05/15/23 14:20 UA Urobilinogen 0.2 mg/dL Last Edit by Mark Sun [facility] on 05/15/23 14:20 UA Protein 0 mg/dL Last Edit by Mark Sun [facility] on 05/15/23 14:20 UA pH 6.0 Last Edit by Mark Sun [facility] on 05/15/23 14:20 UA Blood 0 David/uL Last Edit by Mark Sun [facility] on 05/15/23 14:20 UA Specific [place] 1.020 Last Edit by Mark Sun [facility] on 05/15/23 14:20 UA Ketone Negative Last Edit by Mark Sun [facility] on 05/15/23 14:20 UA Bilirubin 0 mg/dL Last Edit by Mark Sun [facility] on 05/15/23 14:20 UA Glucose 0 mg/dL Last Edit by SAMARIA Lemon on 05/15/23 14:20 Results Reviewed Results Reviewed: 05/15/23 09:00 Lidocaine HCl 2 % Urojet [Xylocaine 2 % Urojet] 20 ml .ROUTE .STK-MED ONE NaPROXEN [Naprosyn] 500 mg .ROUTE .STK-MED ONE Nitrofurantoin Monohyd/M-Cryst [Macrobid] 100 mg PO .STK-MED ONE Laboratory Last Values Urine pH (Auto) 6.0 05/15/23 13:12 Specific [place] (Auto) 1.020 05/15/23 13:12 Urine Protein (Auto) 0 mg/dL 05/15/23 13:12 Glucose (UA)(Auto) 0 mg/dL 05/15/23 13:12 Urine Ketones (Auto) Negative 05/15/23 13:12 Urine Blood (Auto) 0 David/uL 05/15/23 13:12 Urine Nitrite (Auto) Negative 05/15/23 13:12 Urine Bilirubin (Auto) 0 mg/dL 05/15/23 13:12 Urine Urobilinogen (Auto) 0.2 mg/dL 05/15/23 13:12 Leukocyte Esterase (Auto) 0 Monico/uL 05/15/23 13:12 Assessment & Plan Assessment & Plan (1) Bladder cancer: Comment: s/p cystoscopy TURBT and fulguration on . 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 s/p intravesical gemcitabine x 6 treatments? Code(s): C67.9 - Malignant neoplasm of bladder, unspecified (2) Urinary incontinence: Code(s): R32 - Unspecified urinary incontinence (3) Carcinoma in situ of bladder: Code(s): D09.0 - Carcinoma in situ of bladder Plan I discussed with the patient that if we are not able to get clearance to stop her Eliquis that the lesions are small enough to be fulgurated and we can consider a repeat course of the bladder installation at gemcitabine therapy. Prescribed Gemtesa 75 mg daily. Orders: Orders AMB Cystoscopy 05/15/23 D09.0 - Carcinoma in situ of bladder, C67.9 - Malignant neoplasm of bladder, unspecified AMB Urinalysis Automated 05/15/23 Z13.9 - Encounter for screening, unspecified Medications: New vibegron (Gemtesa) 75 mg PO DAILY 90 tabs 1RF naproxen 500 mg PO ONCE 1 tab 0RF D09.0 - Carcinoma in situ of bladder, C67.9 - Malignant neoplasm of bladder, unspecified lidocaine HCl 2% 10 mL intra-urethral ONCE 10 mL 0RF D09.0 - Carcinoma in situ of bladder, C67.9 - Malignant neoplasm of bladder, unspecified ciprofloxacin HCl 500 mg PO ONCE 1 tab 0RF D09.0 - Carcinoma in situ of bladder, C67.9 - Malignant neoplasm of bladder, unspecified Patient Instructions: The patient had an opportunity to ask questions regarding treatment plan. All questions were answered. Imaging, Laboratory studies and physical exam results were discussed and reviewed in detail. No major barriers to understanding were identified. The patient expressed understanding and agreement with the above treatment plan. The patient is aware they should contact our office by phone for worsening of their current condition or the appearance of new symptoms. Compliance is encouraged with any medications and followup testing that is ordered. It is a privilege to be allowed the opportunity to participate in the urologic care of your patient. If you have any questions or concerns regarding treatment for the above conditions please do not hesitate to contact me. The office telephone contact is [phone]. This note is constructed in part using voice recognition software. While every effort has been made to ensure accuracy plant operations manager errors may have been included. Yours sincerely, David Arthur MD Coding Level of Care Code Procedure Only Diagnoses Bladder cancer C67.9 Urinary incontinence R32 Carcinoma in situ of bladder D09.0 CPT Codes Cystoscopy - CPT: [id number] ([id number])
== END 2023-05-15 15:00 | disposition home or self-care (01) ==
PROVIDERS: PCP Internal Medicine; Visit Provider Urology
DX: C67.9 Malignant neoplasm of bladder, unspecified (principal); D09.0 Carcinoma in situ of bladder; R32 Unspecified urinary incontinence
CPT/HCPCS: 52332

== ENCOUNTER → 2023-05-15 13:09 | Outpatient (BNVA) | payer MEDICARE, SELFPAY | PROVIDERS: PCP Internal Medicine; Visit Provider Urology | DX: C67.9 Malignant neoplasm of bladder, unspecified (principal); R32 Unspecified urinary incontinence; D09.0 Carcinoma in situ of bladder | CPT/HCPCS: 52332 ==

== ENCOUNTER 2023-05-30 09:50 | Emergency (ER) | payer MEDICARE, SELFPAY ==
--- NOTE | ~2023-05-30 | CT_ITS ---
EXAMINATION: CT HEAD WITHOUT CONTRAST CLINICAL INFORMATION: Dizziness. COMPARISON: 04/05/2022 TECHNIQUE: Contiguous axial imaging was performed from the skull base to vertex without intravenous administration of contrast. This CT examination was performed using dose optimization techniques as appropriate, variously including the following: *Automated exposure control *Adjustment of mA and/or kV according to patient size (this includes techniques or standardized protocols for targeted exams where dose is matched to indication/reason for exam; i.e. extremities or head) *Use of iterative reconstruction technique DLP: 667.18 mGy-cm FINDINGS: CT examination again demonstrates generalized atrophy and ventriculomegaly. Periventricular white matter disease is again evident, presumably on the basis of microvascular ischemic disease. Old right thalamic and peralta radiata lacunar infarcts are unchanged. Encephalomalacia in the right anterior temporal lobe is also stable. No acute hemorrhage, mass effect or shift is detected. Right cerebellar infarct is stable. Mild mucosal thickening is again noted in the left maxillary sinus. Circumferential mucosal thickening in the right maxillary sinus is slightly worse than on the prior examination. The mastoid air cells and bony calvarium are unremarkable. Both orbits are aphakic. CT/CT head/brain wo IV con IMPRESSION: 1. Since 04/05/2022, no significant interval change or acute intracranial pathology. 2. Stable involutional changes, microvascular disease and old lacunar infarcts. 3. Slight worsening of right maxillary sinus mucosal thickening.
--- NOTE | 2023-05-30 09:54 | ECG_ITS ---
Test Reason : DIZZINESS Blood Pressure : / mmHG Vent. Rate : 055 BPM Atrial Rate : 055 BPM P-R Int : 150 ms QRS Dur : 070 ms QT Int : 438 ms P-R-T Axes : 007 016 042 degrees QTc Int : 419 ms Sinus bradycardia Otherwise normal ECG When compared with ECG of 05-APR-2022 15:26, No significant change was found Referred By: Nida Barnett Electronically Signed By:GENNY DIAZ
--- NOTE | 2023-05-30 09:54 | ED.GENADULT ---
HPI - General Adult General Chief complaint: Dizziness Stated complaint: DIZZY W/NAUSEA,WORSE WHEN LAYING FLAT Time Seen by Provider: 05/30/23 09:53 Source: patient and EMS Mode of arrival: EMS Limitations: no limitations History of Present Illness HPI narrative: Patient is an 88 year old assigned male at with a history of bladder cancer, HTN, COPD, and stroke presenting to the emergency department today with dizziness. Patient states that last night she began feeling unwell with the room spinning. Patient states that she has not taken her medication this morning. Patient states that she lives alone. Patient states that she has family in the area but they are unavailable to help her. Patient denies any lightheadedness, abdominal pain, nausea, vomiting, fever, chills, blurry vision, double vision, loss of vision, chest pain, difficulty breathing, shortness of breath, back pain, night sweats, pain with urination, increased urinary frequency, increased urinary urgency, blood in her urine or stool, syncope or a near syncopal episode, recent trauma or falls, bowel incontinence, bladder incontinence, bowel retention, bladder retention, or any other complaints at this time. Onset (ago): hour(s) Severity: mild Severity scale (1-10): 2 Relieving factors: none Exacerbating factors: none Associated symptoms: denies other symptoms Treatments prior to arrival: none Related Data Home Medications Medication Instructions Recorded Confirmed paroxetine HCl 10 mg tablet 10 mg PO DAILY 12/28/21 12/04/22 Previous Rx's Medication Instructions Recorded cyanocobalamin (vitamin B-12) 100 mcg (0.1 mL) IM DAILY #1 ea 12/07/21 1,000 mcg/mL injection kit (Physicians EZ Use B-12) Combivent Respimat 20 mcg-100 1 puff inhalation Q6H 30 days #4 08/07/22 mcg/actuation solution for grams inhalation (ipratropium-albuterol) apixaban 5 mg tablet (Eliquis) 5 mg PO BID #180 tabs 02/07/23 pantoprazole 40 mg tablet,delayed 40 mg PO DAILY #30 tabs 02/19/23 release atorvastatin 40 mg tablet 40 mg PO BEDTIME #90 tabs 03/14/23 ferrous fumarate 324 mg (106 mg 324 mg PO DAILY #90 tabs 04/17/23 iron) tablet Symbicort 160 mcg-4.5 2 puff inhalation BID 30 days 05/08/23 mcg/actuation HFA aerosol inhaler #10.2 grams (budesonide-formoterol) vibegron 75 mg tablet (Gemtesa) 75 mg PO DAILY #90 tabs 05/15/23 furosemide 20 mg tablet 20 mg PO DAILY #90 tabs 05/23/23 Allergies Allergy/AdvReac Type Severity Reaction Status Date / Time Penicillins AdvReac rash Verified 05/15/23 13:13 Review of Systems Constitutional: Constitutional: Reports no additional constitutional complaints, Denies chills, Denies fever(s) and Denies night sweats Eyes: Eyes: Reports no additional eye complaints, Denies blurry vision, Denies change in vision, Denies diplopia, Denies eye discharge, Denies loss of vision and Denies eye pain ENT: Reports dizziness Cardiovascular: Cardiovascular: Reports no additional cardiovascular complaints, Denies chest pain, Denies lightheadedness, Denies Loss of Consciousness and Denies dyspnea Respiratory: Respiratory: Reports no additional respiratory complaints and Denies dyspnea Gastrointestinal: Gastrointestinal: Reports no additional gastrointestinal complaints, Denies abdominal pain, Denies melena, Denies hematochezia, Denies change in bowel habits and Denies change in stool character Genitourinary: Genitourinary: Denies hematuria, Denies urinary frequency, Denies dysuria, Denies urinary incontinence, Denies urinary hesitancy and Denies urinary urgency Musculoskeletal: Musculoskeletal: Reports no additional musculoskeletal complaints, Denies numbness and Denies tingling Neurologic: Reports dizziness, Denies loss of vision, Denies numbness and Denies tingling Psychiatric: Psychiatric: Reports no additional psychiatric complaints Endocrine: Endocrine: Reports no additional endocrine complaints Hematologic/Lymphatic: Hematologic/Lymphatic: Reports no additional hematologic/lymphatic complaints Allergic/Immunologic: Allergic/Immunologic: Reports no additional allergic/immunologic complaints PMFSH Past Medical History Attestation statement: The following information was validated with the patient. Source: old records reviewed and nursing notes reviewed Medical History Anemia Bladder mass COPD (chronic obstructive pulmonary disease) Generalized anxiety disorder Gross hematuria History of CVA with residual deficit Microhematuria Urinary incontinence Vitamin B12 deficiency Vitamin D deficiency Surgical History No pertinent past surgical history Family History Family History Son Seizures Other No family history of cerebrovascular accident (CVA) Social History Social History Household Members: None Household Members Other:: daughter, son live near Housing: [facility] Do you presently have visiting nurse or other home services: Yes (visiting nurse, PT, OT speech therapist) Alcohol intake: never Patient Tobacco Use Status: Former Tobacco user Quit Date: 35 years ago Smoked in Last 30 Days: No e-Cigarette/Vaping Use: Never Used Use of substances other than those prescribed or required for medical reasons: No Advance Directives: Yes Advance Directives Information Provided: No Advance Directives on File: No Advance Directives Date on File: 12/06/21 service: No Current occupational status: retired Cognitive needs: No Hearing needs: Yes Vision needs: Yes Physical Exam ED Vital Signs: Vital Signs - 24 hr 05/30/23 09:55 05/30/23 10:00 05/30/23 11:22 Temperature 97.6 F 97.6 F 97.6 F Pulse Rate 55 55 51 Respiratory Rate 18 18 14 Blood Pressure 163/78 H 163/78 H 178/73 H Pulse Oximetry 97 97 96 Oxygen Delivery Method Room Air Room Air Room Air BMI result Body Mass Index 26.3 Const General: cooperative, no acute distress, alert and awake Nutritional Appearance: well nourished Orientation/consciousness: patient oriented x3 Limitations: no limitations [facility] Head: Yes normal to inspection and Yes atraumatic Ears: hearing grossly normal bilaterally and external ears normal General nose exam: Normal external nose present, no nasal discharge noted and no epistaxis Face and sinus: Yes normal facial exam, No abrasion and No laceration Mouth: Normal oral and palatal mucosa present, no drooling and no muffled voice Eyes General: appearance normal, both eyes and all related structures Periorbital: periorbital findings normal Eyelids: Yes eyelids normal Conjunctivae: conjunctivae normal Pupils: Equal, round and reactive pupils present EOM: EOMs intact bilaterally Neck Neck: Yes normal visual inspection, Yes full ROM and Yes no lymphadenopathy Chest Chest palpation & inspection: normal inspection of the chest Resp Effort & Inspection: normal respiratory effort and able to speak in complete sentences Auscultation: clear to auscultation bilaterally Cardio Rate: regular rate Rhythm: regular rhythm GI Inspection: Yes normal to inspection Palpation (GI): Soft to palpation, not firm, nontender and no guarding Neuro General: patient oriented x3 and moves all extremities Cranial nerves: Yes Equal, round and reactive pupils present Cognition (Neuro): normal cognition Motor exam (neuro): 5/5 motor strength present throughout Sensory Exam: Normal double simultaneous stimulation for sensation Coordination: [id number] test normal Extrem General: Yes normal to inspection, Yes full ROM and Yes capillary refill normal Psych Appearance: grossly normal Mental Status: mental status grossly normal Affect: normal affect Attitude: cooperative Thought process: Normal thought process present Thought content: Normal thought content present Insight: Good insight present (Psych) Medications Administered Generic Name Dose Route Start Last Admin Trade Name Freq PRN Reason Stop Dose Admin Sodium Chloride 1,000 mls @ 999 mls/hr 05/30/23 11:45 05/30/23 12:07 Ns IV 05/30/23 12:45 999 mls/hr .Q1H1M JEFF Administration Discontinued Medications Generic Name Dose Route Start Last Admin Trade Name Freq PRN Reason Stop Dose Admin Meclizine HCl 25 mg 05/30/23 11:03 05/30/23 11:24 Meclizine Hcl 25 Mg Tablet PO 05/30/23 11:04 25 mg ONCE ONE Administration Medical Decision Making Medical Decision Making [facility] Narrative: Patient is an 88 year old assigned female at with a history of bladder cancer, HTN, COPD, and stroke presenting to the emergency department today with dizziness. Patient's physical exam was unremarkable. Patient's blood work was unremarkable. Patient's EKG was unremarkable. Patient's head CT showed worsening of right maxillary sinus mucosal thickening. I explained my physical exam findings as well as all test results to the patient. I answered all questions asked by the patient. Patient was given PO Antivert which she stated helped her dizziness some. Patient's clinical presentation is most consistent with BPPV, possibly secondary to sinusitis. Patient expressed concern with safety at home. Patient will be evaluated by case management and physical therapy. Patient to be given doxycycline for her possible sinusitis given her PCN allergy. Differential Diagnosis Differential Diagnoses: The differential diagnosis associated with the presentation includes BPPV Sinusitis Gait instability Admission/Observation Consideration of admission/observation: Escalation of care including admission/observation considered Patient would have been admitted to the hospital had her work up had any findings where hospital admission was appropriate and her clinical presentation warranted hospital admission. Lab Data MDM Lab Attestation statement: I reviewed the patient's lab results. My interpretation of these studies and their corresponding values is that they are grossly normal. 05/30/23 10:19 05/30/23 10:19 Labs: Lab Results 05/30/23 05/30/23 05/30/23 Range/Units 10:09 10:19 10:19 WBC 6.4 (4.8-10.8) X10*3/uL RBC 4.47 (4.20-5.50) X10*6/uL Hgb 13.1 (12.0-16.0) g/dl Hct 40.6 (37.0-47.0) % MCV 90.8 (80.0-98.0) fL MCH 29.3 (27.0-33.0) pg MCHC 32.3 (31.0-35.0) g/dl RDW 12.2 (11.0-16.0) % Plt Count 181 D (160-400) X10*3/uL MPV 9.9 (9.4-12.3) fL Immature Gran % (Auto) 0.5 H (0.0-0.4) % Neut % (Auto) 78.3 H (45-73) % Lymph % (Auto) 11.0 L (20-40) % [place] % (Auto) 6.6 (2-11) % Eos % (Auto) 3.0 (0-4) % Baso % (Auto) 0.6 (0-2) % Lymph # (Auto) 0.7 L (1.2-4.9) X10*3/uL [place] # (Auto) 0.4 (0.1-1.2) X10*3/uL Eos # (Auto) 0.2 (0.0-0.4) X10*3/uL Baso # (Auto) 0.0 (0.0-0.2) X10*3/uL Abs Immat Gran (auto) 0.03 (0.00-0.03) X10*3/uL Absolute Neuts (auto) 5.0 (2.0-8.3) x10*3/uL Absolute Nucleated RBC 0.000 (0.0-0.012) X10*3/uL Nucleated RBC % (auto) 0.0 (0.0-0.2) /100WBC Sodium 145 (135-145) mmol/L Potassium 4.2 (3.3-5.1) mmol/L Chloride 109 H (96-108) mmol/L Carbon Dioxide 24 (22-29) mmol/L Anion Gap 16 (12-20) BUN 31 H (9-16) mg/dL Creatinine 1.28 (0.5-1.4) mg/dL Estim Creat Clear Calc 32.3 Estimated GFR 39 POC Glucose 104 (60-115) mg/dL Random Glucose 99 (60-115) mg/dL Calcium 8.9 (8.4-10.2) mg/dL Magnesium 2.2 (1.6-2.6) mg/dL Total Bilirubin 0.6 (0.0-1.0) mg/dL AST 19 (5-31) U/L ALT 17 (0-31) U/L Alkaline Phosphatase 75 (39-117) U/L Troponin I High Sens (<3.5-17.0) ng/L Total Protein 6.0 L (6.5-8.0) g/dL Albumin 3.6 (3.5-5.0) g/dL COVID-19 (AFSANEH) (Negative) COVID-19 Clin Com 05/30/23 05/30/23 Range/Units 10:19 10:19 WBC (4.8-10.8) X10*3/uL RBC (4.20-5.50) X10*6/uL Hgb (12.0-16.0) g/dl Hct (37.0-47.0) % MCV (80.0-98.0) fL MCH (27.0-33.0) pg MCHC (31.0-35.0) g/dl RDW (11.0-16.0) % Plt Count (160-400) X10*3/uL MPV (9.4-12.3) fL Immature Gran % (Auto) (0.0-0.4) % Neut % (Auto) (45-73) % Lymph % (Auto) (20-40) % [place] % (Auto) (2-11) % Eos % (Auto) (0-4) % Baso % (Auto) (0-2) % Lymph # (Auto) (1.2-4.9) X10*3/uL [place] # (Auto) (0.1-1.2) X10*3/uL Eos # (Auto) (0.0-0.4) X10*3/uL Baso # (Auto) (0.0-0.2) X10*3/uL Abs Immat Gran (auto) (0.00-0.03) X10*3/uL Absolute Neuts (auto) (2.0-8.3) x10*3/uL Absolute Nucleated RBC (0.0-0.012) X10*3/uL Nucleated RBC % (auto) (0.0-0.2) /100WBC Sodium (135-145) mmol/L Potassium (3.3-5.1) mmol/L Chloride (96-108) mmol/L Carbon Dioxide (22-29) mmol/L Anion Gap (12-20) BUN (9-16) mg/dL Creatinine (0.5-1.4) mg/dL Estim Creat Clear Calc Estimated GFR POC Glucose (60-115) mg/dL Random Glucose (60-115) mg/dL Calcium (8.4-10.2) mg/dL Magnesium (1.6-2.6) mg/dL Total Bilirubin (0.0-1.0) mg/dL AST (5-31) U/L ALT (0-31) U/L Alkaline Phosphatase (39-117) U/L Troponin I High Sens 4.5 (<3.5-17.0) ng/L Total Protein (6.5-8.0) g/dL Albumin (3.5-5.0) g/dL COVID-19 (AFSANEH) Negative (Negative) COVID-19 Clin Com See Note Independent Interpretation I performed an independent interpretation of an: EKG and CT Scan Interpretation: My interpretation is in agreement with the radiologist's impression of this imaging study. EXAMINATION: CT HEAD WITHOUT CONTRAST CLINICAL INFORMATION: Dizziness.? COMPARISON: 04/05/2022 TECHNIQUE: Contiguous axial imaging was performed from the skull base to vertex without intravenous administration of contrast. This CT examination was performed using dose optimization techniques as appropriate, variously including the following: *Automated exposure control *Adjustment of mA and/or kV according to patient size (this includes techniques or standardized protocols for targeted exams where dose is matched to indication/reason for exam; i.e. extremities or head) *Use of iterative reconstruction technique DLP: 667.18 mGy-cm FINDINGS: CT examination again demonstrates generalized atrophy and ventriculomegaly. Periventricular white matter disease is again evident, presumably on the basis of microvascular ischemic disease. Old right thalamic and peralta radiata lacunar infarcts are unchanged. Encephalomalacia in the right anterior temporal lobe is also stable. No acute hemorrhage, mass effect or shift is detected. Right cerebellar infarct is stable. Mild mucosal thickening is again noted in the left maxillary sinus. Circumferential mucosal thickening in the right maxillary sinus is slightly worse than on the prior examination. The mastoid air cells and bony calvarium are unremarkable. Both orbits are aphakic. ? CT/CT head/brain wo IV con IMPRESSION: ? 1. Since 04/05/2022, no significant interval change or acute intracranial pathology. ? 2. Stable involutional changes, microvascular disease and old lacunar infarcts. ? 3. Slight worsening of right maxillary sinus mucosal thickening. Dictated By: Francisco Castelan MD Signed By: Electronically signed by Francisco Castelan MD 05/30/23 1123 Vent. Rate: 055 BPM ? ? Atrial Rate: 055 BPM P-R Int: 150 ms? QRS Dur: 070 ms QT Int: 438 ms ? ? ? P-R-T Axes: 007 016 042 degrees QTc Int: 419 ms ? Sinus bradycardia Otherwise normal ECG When compared with ECG of 05-APR-2022 15:26, No significant change was found DD/ 1006 Radiology Impression Discussion of test interpretation with radiology: I have reviewed the radiologist's reading. Independent Historian Clinical information obtained from an independent historian. History obtained from or confirmed by: EMS (EMS provided additional history and confirmed the history provided by the patient.) Chronic Conditions Patient?s care impacted by: Hypertension Discharge Plan Discharge Clinical Impression: Benign paroxysmal positional vertigo, Sinusitis Patient Disposition: Still a Patient Prescriptions: No Action Eliquis 5 mg tablet 5 mg PO BID Qty: 180 1RF pantoprazole 40 mg tablet,delayed release (DR/EC) 40 mg PO DAILY Qty: 30 5RF atorvastatin 40 mg tablet 40 mg PO BEDTIME Qty: 90 1RF ferrous fumarate 324 mg (106 mg iron) tablet 324 mg PO DAILY Qty: 90 1RF furosemide 20 mg tablet 20 mg PO DAILY Qty: 90 1RF Physicians EZ Use B-12 1,000 mcg/mL kit 100 mcg IM DAILY Qty: 1 0RF Rx Instructions: needs 1000 mcg daily for 6 days , then weekly for 3 weeks , then monthly. paroxetine HCl 10 mg tablet 10 mg PO DAILY Combivent Respimat 20-100 mcg/actuation mist 1 puff inhalation Q6H 30 Days Qty: 4 6RF lidocaine HCl 2 % jelly in applicator 20 ml intra-urethral ONCE Qty: 10 0RF ciprofloxacin HCl 500 mg tablet 500 mg PO ONCE Qty: 1 0RF naproxen 500 mg tablet 500 mg PO ONCE Qty: 1 0RF lidocaine HCl 2 % jelly in applicator 10 ml intra-urethral ONCE Qty: 10 0RF Gemtesa 75 mg tablet 75 mg PO DAILY Qty: 90 1RF budesonide-formoterol [Symbicort] 160-4.5 mcg/actuation HFA aerosol inhaler 2 puff inhalation BID 30 Days Qty: 10.2 6RF
[2023-05-30 09:55] VITALS: BP 163/78; BP 166/97; PULSE 55; RESP 18; TEMP 36.4; O2SAT 97; BMI 26.3
[2023-05-30 10:00] VITALS: BP 163/78; PULSE 55; RESP 18; TEMP 36.4; O2SAT 97
[2023-05-30 10:12] LABS: Glucose, Whole Blood 104 mg/dL (60-115)
[2023-05-30 10:25] LABS: MANUAL DIFF FLAG NO
[2023-05-30 10:29] LABS: Basophils Percent Auto 0.6 % (0-2); Eosinophils Absolute Auto 0.2 X10*3/uL (0.0-0.4); Hematocrit 40.6 % (37.0-47.0); Hemoglobin 13.1 g/dl (12.0-16.0); Imm Gran Abs Auto 0.03 X10*3/uL (0.00-0.03); Imm Gran Pct Auto 0.5 % (0.0-0.4); Lymphocytes Absolute Auto 0.7 X10*3/uL (1.2-4.9); Mean Corpuscular HGB Conc 32.3 g/dl (31.0-35.0); Mean Corpuscular Hemoglobin 29.3 pg (27.0-33.0); Mean Corpuscular Volume 90.8 fL (80.0-98.0); Mean Platelet Volume 9.9 fL (9.4-12.3); Monocytes Absolute Auto 0.4 X10*3/uL (0.1-1.2); Monocytes Percent Auto 6.6 % (2-11); Neutrophils Percent Auto 78.3 % (45-73); Platelet Count 181 X10*3/uL (160-400); Red Blood Count 4.47 X10*6/uL (4.20-5.50); Red Cell Distribution Width 12.2 % (11.0-16.0); White Blood Count 6.4 X10*3/uL (4.8-10.8)
[2023-05-30 10:40] LABS: COVID-19 Test Negative (Negative); IDNOW Serial# BCCEAD1C
[2023-05-30 10:43] LABS: Alanine Aminotransferase 17 U/L (0-31); Albumin Level 3.6 g/dL (3.5-5.0); Alkaline Phosphatase 75 U/L (39-117); Anion Gap 16 (12-20); Aspartate Amino Transferase 19 U/L (5-31); Bilirubin Total 0.6 mg/dL (0.0-1.0); Blood Urea Nitrogen 31 mg/dL (9-16); Calcium 8.9 mg/dL (8.4-10.2); Carbon Dioxide 24 mmol/L (22-29); Chloride 109 mmol/L (96-108); Creatinine Clr Calc Pharmacy 32.3; Estimated Glomerular Filt Rate 39; Glucose Random 99 mg/dL (60-115); Magnesium 2.2 mg/dL (1.6-2.6); Potassium 4.2 mmol/L (3.3-5.1); Sodium 145 mmol/L (135-145)
[2023-05-30 10:50] LABS: Troponin-I High Sensitivity 4.5 ng/L (<3.5-17.0)
[2023-05-30 11:22] VITALS: BP 178/73; PULSE 51; RESP 14; TEMP 36.4; O2SAT 96
[2023-05-30] MEDS: Meclizine HCl 25 MG TABLET PO (11:24)
[2023-05-30] MEDS: 0.9 % Sodium Chloride 1,000 ML 999 ML IV (12:07)
--- NOTE | 2023-05-30 14:10 | PHA.MEDREC ---
Pharmacy Consult ? Medication Reconciliation Pharmacy has completed the medication reconciliation. Spoke to patient to confirm meds.
[2023-05-30 14:12] VITALS: BP 139/75; PULSE 70; RESP 18; TEMP 36.5; O2SAT 95
[2023-05-30] MEDS: ondansetron HCL 4 MG/2 ML VIAL IVPUSH (14:22)
--- NOTE | 2023-05-30 18:14 | PC.NURSE ---
A/Ox3. Arrived from ED at ~1700. Awaiting PT eval. Will cont to monitor
--- NOTE | 2023-05-30 20:20 | MHC.CM.ED ---
CM met with patient regarding discharge planning. Pt states she was living independently with a [employer] twice a week from [facility]. Woke with dizziness. States she normally uses a rollator walker. Daughters live locally and help when needed. Fully vax with Prizer x4 and Moderna x1. HCP is at home. Copy requested. HCP #1/daughter Juana Rodriguez ([phone]) and HCP #2.daughter Pallavi Rodriguez ([phone]). PT will evaluated patient in the am. Pt would really like to go home, but is willing to have PT evaluation. No referrals placed at this time. Daughter will transport patient home at discharge. CM will follow for any discharge needs.
[2023-05-30] MEDS: Doxycycline Monohydrate 100 MG CAPSULE PO (20:46)
[2023-05-30 22:25] VITALS: BP 150/67; PULSE 55; O2SAT 94
[2023-05-31 06:04] VITALS: BP 143/69; PULSE 74; RESP 18; TEMP 36.6; O2SAT 93
[2023-05-31 08:00] VITALS: BP 132/69; PULSE 87; RESP 18; O2SAT 98
[2023-05-31] MEDS: Doxycycline Monohydrate 100 MG CAPSULE PO (08:41)
[2023-05-31 09:48] VITALS: BP 143/69; PULSE 74; O2SAT 93
--- NOTE | 2023-05-31 09:51 | PC.NURSE ---
Ambulating on unit with therapy, denies dizziness at this time
[2023-05-31 10:33] LABS: Appearance Urine Cloudy; Color Urine Yellow; Glucose Urine UA Negative (Negative); Leukocyte Esterase Urine Moderate (2+) (Negative); Nitrite Urine Negative (Negative); PH 5.5 (5.0-9.0); UMIC TRIGGER UACC YES; Urine Blood Negative (Negative); Urine Ketones Trace mg/dL (Negative); Urine Protein Negative (Neg-Trace)
[2023-05-31 10:35] LABS: Bacteria Urine 1+ (None Seen); Hyaline Casts Urine 0-2 /LPF (0-2); UACC Culture Trigger YES; WBC Urine 21-50 /HPF (0-5)
--- NOTE | 2023-05-31 10:49 | PC.NURSE ---
Working with therapy- no complaints of any dizziness.
[2023-05-31 10:54] VITALS: BP 143/69; PULSE 74; O2SAT 93
--- NOTE | 2023-05-31 11:32 | MHC.CM.ED ---
Patient remains in ER oveflow. Repeat PT eval completed. Vertigo symptoms have resolved. No services indicated at d/c. Met with patient in regards to discharge planning. Patient reports feeling better and being able to safely go home. Patient will call her daughter to transport her home. Johanne PLASCENCIA and Reilly CASAS aware. Continue to monitor for d/c needs.
--- NOTE | 2023-05-31 13:38 | PC.NURSE ---
Discharge instructions reviewed with patient and daughter who verbalized understanding
== END 2023-05-31 13:37 | disposition home or self-care (01) ==
PROVIDERS: Physician Assistant Medical; Emergency Provider Student in an Organized Health Care Education/Training Program; PCP Internal Medicine
DX: R42 Dizziness and giddiness (principal); J32.9 Chronic sinusitis, unspecified; R11.2 Nausea with vomiting, unspecified; R00.1 Bradycardia, unspecified; R26.2 Difficulty in walking, not elsewhere classified; Z87.891 Personal history of nicotine dependence; Z20.822 Contact with and (suspected) exposure to COVID-19; Z20.828 Contact with and (suspected) exposure to other viral communicable diseases; Z79.899 Other long term (current) drug therapy
CPT/HCPCS: 36415; 70450; 80053; 81001; 82947; 83735; 84484; 85025; 87086; 87635; 93005; 96361; 96374; 97116; 97161; 99285; J2405

== ENCOUNTER → 2023-05-30 09:54 | Outpatient (BNV) | payer MEDICARE, SELFPAY | PROVIDERS: Emergency Provider Student in an Organized Health Care Education/Training Program; PCP Internal Medicine; Visit Provider Internal Medicine | DX: R00.1 Bradycardia, unspecified (principal) | CPT/HCPCS: 93010 ==

== ENCOUNTER 2023-06-20 15:23 | Outpatient (AMB) | payer MEDICARE, SELFPAY ==
--- NOTE | 2023-06-20 16:03 | A.OFFPC_ITS ---
Vital Signs 06/20/23 16:04 Height 5 ft 7 in Weight 161 lb BMI 25.2 BP 130/74 Blood Pressure Location Lt brachial Position Sitting Pulse 75 Pulse Source Pulse Oximeter Pulse Oximetry (%) 93 Intake Visit Reasons: Pre Op clearance (ekg needed) Intake Note: pt is here for pre op clearance, EKG done Allergies Penicillins Adverse Reaction (Verified 06/20/23 16:34) rash Medication List - Last Reconciled 06/20/23 by Jessica Cotton MD apixaban (Eliquis) 5 mg PO BID atorvastatin 40 mg PO BEDTIME cyanocobalamin (vitamin B-12) 100 mcg PO DAILY ferrous fumarate 324 mg PO DAILY furosemide 20 mg PO DAILY meclizine 25 mg PO TID 7 days pantoprazole 40 mg PO DAILY Symbicort 160-4.5 mcg/actuation (budesonide-formoterol) 2 puffs inhalation BID 30 days NS vibegron (Gemtesa) 75 mg PO DAILY Tobacco use date assessed: 12/18/22 Fall risk assessment: No Falls in past year Last assessed Fall Risk: 06/20/23 Dental Screening Dental Screen Date: 06/20/23 Did you have a dental visit in the last 12 months?: Yes Did you have a dental problem in the last 6 months where you did not have access to dental care?: No Was dental information given to patient?: Patient has dentist HPI Pre Op clearance (ekg needed) HPI Details 88-year-old female with history of CVA currently on apixaban, has generalized anxiety disorder, COPD, , anemia, diagnosed to have bladder cancers s/p cystoscopy, TURBT on 11/20/22, and completed a 6-week course of?gemcitabine? bladder installation. A follow-up cystoscopy done in January showed some papillary tumors , and is scheduled for a repeat cystoscopy, bladder biospsies, and TUR.? She now presents for medical clearance. She has been feeling well, with no new complaints at present time, denies chest pain , shortness of breath , or headache. However she has been experiencing intermittent episodes of spinning sensation whenever she gets up quickly from a lying to sitting position or sudden turning for head. She was seen recently at the walk-in clinic for the same complaint and was prescribed meclizine which did help relieve her symptoms temporarily. She has had similar episodes in the past and [facility], treated for benign positional vertigo. [facility] Medical History (Updated 06/24/23 @ 01:04 by Jessica Cotton MD) Anemia COPD (chronic obstructive pulmonary disease) Generalized anxiety disorder History of CVA with residual deficit Microhematuria Positional lightheadedness Urinary incontinence Surgical History No pertinent past surgical history Family History Son Seizures Other No family history of cerebrovascular accident (CVA) Social History Household Members: None Household Members Other:: daughter, son live near Housing: [facility] Do you presently have visiting nurse or other home services: Yes (visiting nurse, PT, OT speech therapist) Alcohol intake: never Patient Tobacco Use Status: Former Tobacco user Quit Date: 35 years ago e-Cigarette/Vaping Use: Never Used Advance Directives Date on File: 12/06/21 service: No Current occupational status: retired Cognitive needs: No Hearing needs: Yes Vision needs: Yes Questionnaire Thrive Questionnaire Date Thrive assessed: 12/18/22 AUDIT C Alcohol Use Questionnaire (AUDIT-C) 1. How often do you have a drink containing alcohol?: Monthly or less 2. How many drinks containing alcohol do you have on a typical day when you are drinking?: 1 or 2 3. How often do you have six or more drinks on one occasion?: Never Total Score: 1 DAXA-7 AMB Questionnaire DAXA-7 Date DAXA - 7 assessed: 12/18/22 Source: Developed by Drs. Vinicio Kauffman, Veronika Kurtz, Epifanio Fontenot and colleagues, with an educational fanny from [employer]. Review of Systems Const Denies fatigue, Denies fever(s) and Reports malaise Eyes Denies blurry vision and Denies itchy eyes ENT Denies nasal congestion, Denies post nasal drip, Denies sinus pain, Denies sinus pressure and Denies other ( Thrush) Card Denies chest pain, Denies pedal edema, Denies dyspnea, Denies orthopnea and Denies paroxysmal nocturnal dyspnea Resp Denies cough, Denies hemoptysis, Denies excessive phlegm production, Denies dyspnea and Denies wheezing GI Denies abdominal pain and Denies heartburn Denies hematuria, Denies urinary frequency, Denies difficulty voiding, Denies dysuria, Reports urinary incontinence, Denies urinary hesitancy and Denies urinary urgency Musc Denies myalgias, Denies arthralgias and Denies joint swelling Skin/Breast Denies rash Neuro Denies memory loss and Denies seizure-like activity Psych Denies anxiety and Denies memory loss Endo Denies fatigue, Denies flushing, Denies heat intolerance and Denies polydipsia Ry/Lymph Denies easy bruising Aller/Immun Denies itchy eyes, Denies seasonal rhinorrhea and Denies wheezing Physical exam (Primary Care) Vital Signs: Last Vital Signs Pulse 75 06/20/23 16:04 BP 130/74 06/20/23 16:04 Pulse Ox 93 06/20/23 16:04 BMI result Body Mass Index 25.2 Tobacco/Smoking Status: Tobacco use Status Tobacco use date assessed 12/18/22 06/20/23 16:10 Patient Tobacco Use Status Former Tobacco user 06/20/23 16:10 e-Cigarette/Vaping Use Never Used 06/20/23 16:10 Thrive Assessment: Date of Thrive Assessment Date Thrive assessed 12/18/22 06/20/23 16:10 Const Nutritional Appearance: average body habitus Orientation/consciousness: patient oriented x3 HENMT Head: Yes normocephalic General nose exam: Normal external nose present Face and sinus: Yes normal facial exam Mouth: Normal oral and palatal mucosa present and moist mucous membranes Eyes General: appearance normal, both eyes and all related structures Neck Neck: Yes full ROM, Yes no lymphadenopathy and Yes supple Resp Auscultation: clear to auscultation bilaterally Cardio Other: S1-S2 present regular rate and rhythm GI Palpation (GI): Soft to palpation, nontender and no guarding Auscultation: normal bowel sounds General: Yes no CVA tenderness Back/Spine/Pelvis Back: no CVA tenderness and No back tenderness Thoracic/Lumbar Spine: kyphosis Skin General skin exam: no rashes or lesions noted Neuro General: patient oriented x3, moves all extremities, Normal light touch and pain sensation, no focal motor deficits and CN's II-XI intact bilaterally Gait exam (Neuro): Assisted gait required Gait assisted method: walker Extrem General: Yes no joint enlargement, Yes no pedal edema and Yes no calf tenderness Results Reviewed Results Reviewed: henry: Joy Rodriguez Age/Sex: 88/F : 1935 Unit#: [id number] Attend Dr: Veronica Sargent MD Re05/30/23 Status: DEP ER Location: HO.ED Disch: SPEC : [id number] ALEJANDRO: 05/30/23 STATUS: COMP REQ : [id number] RECD: 05/30/[address]: Nida Barnett COMP: 05/30/23 ENTERED: 05/30/[address] [facility] [address]: ORDERED: CBC Auto Diff Test Result Flag Reference Site WBC 6.4 4.8-10.8 X10*3/uL RBC 4.47 4.20-5.50 X10*6/uL HGB 13.1 12.0-16.0 g/dl HCT 40.6 37.0-47.0 % MCV 90.8 80.0-98.0 fL MCH 29.3 27.0-33.0 pg MCHC 32.3 31.0-35.0 g/dl RDW 12.2 11.0-16.0 % PLT 181 # 160-400 X10*3/uL MPV 9.9 9.4-12.3 fL Neut Pct Auto 78.3 H 45-73 % ImGran Pct Auto 0.5 H 0.0-0.4 % Lymp Pct Auto 11.0 L 20-40 % [place] Pct Auto 6.6 2-11 % Eos Pct Auto 3.0 0-4 % Baso Pct Auto 0.6 0-2 % NRBC Pct Auto 0.0 0.0-0.2 /100WBC RUN: 06/24/23 0100 PAGE 1 [facility] [address] [place] [id number] Pediatric Neurologist: Angel Cruz M.D. Specimen Inquiry Name: Joy Rodriguez Age/Sex: 88/F : 1935 [id number] Unit#: [id number] Attend Dr: Veronica Sargent MD Re05/30/23 Status: DEP ER Location: .ED Disch: SPEC : [id number] ALEJANDRO: 05/30/23 STATUS: COMP REQ : [id number] RECD: 05/30/23-[address]: Nida Barnett COMP: 05/30/23-1042 ENTERED: 05/30/23-[address]: ORDERED: CMP, MG Test Result Flag Reference Site Sodium 145 135-145 mmol/L Potassium 4.2 3.3-5.1 mmol/L CL 109 H 96-108 mmol/L CO2 24 22-29 mmol/L Gap 16 12-20 BUN 31 H 9-16 mg/dL Creat 1.28 0.5-1.4 mg/dL Estimated CrCl 32.3 Provided height and weight: 170.18 cm, 76.1 kg. eGFR (calculated from the MDRD study equation) and eCrCl (calculated from the Cockcroft-Gault equation) are based on different parameters and may not yield comparable results. If eCrCl result is absurd, please check patient's height/weight. EGFR 39 NOTE: For -[place] individuals, multiply the result by 1.210. Chronic Kidney Disease: Estimated GFR < 60 mL/min/1.73m2 Severe Kidney Disease: Estimated GFR < 15 mL/min/1.73m2 Glucose, Random 99 60-115 mg/dL CA 8.9 8.4-10.2 mg/dL Magnesium 2.2 1.6-2.6 mg/dL Total Bili 0.6 0.0-1.0 mg/dL AST (GOT) 19 5-31 U/L ALT (GPT) 17 0-31 U/L Protein, Total 6.0 L 6.5-8.0 g/dL Alb 3.6 3.5-5.0 g/dL Alk Phos 75 39-117 U/L Assessment and Plan Assessment & Plan (1) Preoperative examination: Code(s): Z01.818 - Encounter for other preprocedural examination Plan: 88 year old lady here for pre-op clearance for repeat cystoscopy, bladder biospsies, and TUR. She has history of CVA in early 2021 with residual deficit , currently on Eliquis. No abnormal bleeding noted. Pre-op exam is unremarkable. EKG shows: Normal sinus rhythm with no acute ST-T changes. Adv ised to hold Eliquis at least 3 days prior to scheduled surgery. She has a low cardiac risk index for proposed surgery (2) Positional lightheadedness: Code(s): R42 - Dizziness and giddiness Plan: Referred to [facility] for evaluation and treatment of possible benign positional vertigo. Prescription also was given for meclizine, 25 mg per tablet to take only as needed for acute episodes of positional lightheadedness. (3) Carcinoma in situ of bladder: Code(s): D09.0 - Carcinoma in situ of bladder Plan: Followed by Urology scheduled for repeat cystoscopy and bladder biopsies and TUR. (4) COPD (chronic obstructive pulmonary disease): Code(s): J44.9 - Chronic obstructive pulmonary disease, unspecified Plan: Continue on Symbicort 160-4.5 mcg per actuation, 2 puffs inhalation twice a day (5) History of CVA with residual deficit: Code(s): I69.30 - Unspecified sequelae of cerebral infarction Plan: Currently on Eliquis advised to hold taking the medication 3 days prior to surgery Medications: New meclizine 25 mg PO DAILY PRN 20 tabs 0RF Positional lightheadedness/vertigo Coding Level of Care Code Est Pt Level 4 (61134) Diagnoses Preoperative examination Z01.818 Positional lightheadedness R42 Carcinoma in situ of bladder D09.0 COPD (chronic obstructive pulmonary disease) J44.9 History of CVA with residual deficit I69.30
[2023-06-20 16:04] VITALS: BP 130/74; PULSE 75; O2SAT 93; BMI 25.2
== END 2023-06-20 17:02 | disposition home or self-care (01) ==
PROVIDERS: PCP Internal Medicine; Visit Provider Internal Medicine
DX: Z01.818 Encounter for other preprocedural examination (principal); R42 Dizziness and giddiness; D09.0 Carcinoma in situ of bladder; J44.9 Chronic obstructive pulmonary disease, unspecified; I69.30 Unspecified sequelae of cerebral infarction
CPT/HCPCS: 99214

== ENCOUNTER 2023-07-02 13:23 | Outpatient (AMB) | payer MEDICARE, SELFPAY ==
[2023-07-02 13:26] VITALS: BP 138/77; PULSE 77; O2SAT 94; BMI 25.4
--- NOTE | 2023-07-02 13:26 | MHC.OFFVIS ---
Intake Vital Signs 07/02/23 13:26 Height 5 ft 7 in Weight 162 lb 0.636 oz BMI 25.4 BP 138/77 Blood Pressure Location Rt brachial Position Sitting Pulse 77 Pulse Source Doppler Pulse Oximetry (%) 94 Oxygen Delivery Method Room Air Intake Visit Reasons: Cystoscopy - C Urology - TBD Allergies Penicillins Adverse Reaction (Verified 07/02/23 13:29) rash HPI [facility] - [facility] [place] HPI Details 88-year-old lady, with remote history of smoking, quit over 15 years prior, now followed for moderate COPD.? After the last office visit she was no longer able to tolerate trilogy and some was switched to Symbicort. Patient continued on Combivent and furosemide, now with reasonable control of her symptoms. [facility] Medical History (Updated 07/02/23 @ 13:53 by Aristeo Austin MD) Anemia COPD (chronic obstructive pulmonary disease) Generalized anxiety disorder History of CVA with residual deficit Microhematuria Positional lightheadedness Urinary incontinence Surgical History No pertinent past surgical history Family History Son Seizures Other No family history of cerebrovascular accident (CVA) Social History Household Members: None Household Members Other:: daughter, son live near Housing: [facility] Do you presently have visiting nurse or other home services: Yes (visiting nurse, PT, OT speech therapist) Alcohol intake: never Patient Tobacco Use Status: Former Tobacco user Quit Date: 35 years ago e-Cigarette/Vaping Use: Never Used Advance Directives Date on File: 12/06/21 service: No Current occupational status: retired Cognitive needs: No Hearing needs: Yes Vision needs: Yes Review of Systems Const Denies daytime sleepiness, Denies excessive sweating, Denies fatigue, Denies fever(s), Denies lethargy, Denies malaise, Denies night sweats, Denies snoring and Denies weight loss Eyes Denies blurry vision and Denies itchy eyes ENT Denies nasal congestion, Denies post nasal drip, Denies sinus pain, Denies sinus pressure and Denies other ( Thrush) Card Denies chest pain, Denies pedal edema, Denies dyspnea, Denies orthopnea and Denies paroxysmal nocturnal dyspnea Resp Denies cough, Denies hemoptysis, Denies excessive phlegm production, Denies dyspnea, Denies snoring and Denies wheezing GI Denies abdominal pain and Denies heartburn Musc Denies myalgias, Denies arthralgias and Denies joint swelling Skin/Breast Denies rash Neuro Denies memory loss and Denies seizure-like activity Psych Denies abnormal sleep pattern, Denies anxiety and Denies memory loss Endo Denies excessive sweating, Denies fatigue and Denies heat intolerance Ry/Lymph Denies easy bruising Aller/Immun Denies itchy eyes, Denies seasonal rhinorrhea and Denies wheezing Physical Exam Vital Signs: Last Vital Signs Pulse 77 07/02/23 13:26 BP 138/77 07/02/23 13:26 Pulse Ox 94 07/02/23 13:26 Oxygen Delivery Method Room Air 07/02/23 13:26 BMI result Body Mass Index 25.4 Const General: no acute distress and alert Nutritional Appearance: not obese Orientation/consciousness: Other orientation findings ( oriented) HEENT Head: Yes atraumatic Eyes General: appearance normal, both eyes and all related structures Sclerae: sclerae normal EOM: EOMs intact bilaterally Neck Neck: Yes supple Lymphatic: no lymphadenopathy noted Resp Effort & Inspection: normal respiratory effort and no use of accessory muscles Auscultation: clear to auscultation bilaterally Cardio Rate: regular rate Rhythm: regular rhythm Heart sounds: no gallops, no murmurs and no rubs Skin General skin exam: other ( warm) Extrem General: No clubbing, No cyanosis and No edema Assessment & Plan Assessment & Plan (1) COPD (chronic obstructive pulmonary disease): Code(s): J44.9 - Chronic obstructive pulmonary disease, unspecified Plan: Well controlled on current regimen of Symbicort, albuterol MDI, and duo nebs. Continue current regimen. (2) Encounter for preoperative pulmonary examination: Code(s): Z01.811 - Encounter for preprocedural respiratory examination Plan: At this time patient is at low risk for pulmonary preoperative complications for the proposed cystoscopy either under general anesthesia or monitored anesthesia care. Coding Level of Care Code Est Pt Level 4 (28221) Diagnoses COPD (chronic obstructive pulmonary disease) J44.9 Encounter for preoperative pulmonary examination Z01.811
== END 2023-07-02 13:46 | disposition home or self-care (01) ==
PROVIDERS: PCP Internal Medicine; Visit Provider Internal Medicine Pulmonary Disease
DX: J44.9 Chronic obstructive pulmonary disease, unspecified (principal); Z01.811 Encounter for preprocedural respiratory examination
CPT/HCPCS: 99214

== ENCOUNTER → 2023-07-02 13:23 | Outpatient (BNVA) | payer MEDICARE, SELFPAY | PROVIDERS: PCP Internal Medicine; Visit Provider Internal Medicine Pulmonary Disease | DX: Z01.811 Encounter for preprocedural respiratory examination (principal); J44.9 Chronic obstructive pulmonary disease, unspecified; Z79.899 Other long term (current) drug therapy | CPT/HCPCS: 99212 ==

== ENCOUNTER 2023-07-09 09:13 | Day surgery (SDC) | payer MEDICARE, SELFPAY ==
[2023-07-04 13:56] VITALS: BMI 25.4
--- NOTE | 2023-07-08 10:09 | HO.ANESPROP2 ---
Documented by User: Jamilah Naidu NP 07/08/23 10:11 HPI - Anesthesia Eval Consult details Narrative: 88yo F for Cysto TUR Bladder Tumor w/ fulguration PCP cleared Pulmo cleared s/p TURBT 10/2022 with [facility] 3 Eliquis for hx CVA PMFSH Active Problems Active Problems: All Active Problems (Updated 07/04/23 @ 13:55 by Briana Oshea RN) Encounter for preoperative pulmonary examination (Acute) Carcinoma in situ of bladder (Acute) Bladder cancer (Chronic) Gait disorder (Acute) Positional lightheadedness (Acute) Generalized anxiety disorder (Acute) COPD (chronic obstructive pulmonary disease) (Acute) History of CVA with residual deficit (Acute) Past Medical History Medical History Cerebral aneurysm GERD (gastroesophageal reflux disease) Bladder cancer Positional lightheadedness Urinary incontinence Generalized anxiety disorder Microhematuria History of CVA with residual deficit Anemia COPD (chronic obstructive pulmonary disease) Family History Family History Son Seizures Other No family history of cerebrovascular accident (CVA) Family history of problems with anesthesia: No Surgical History Surgical History Hx of bilateral cataract extraction S/P cerebral aneurysm repair H/O transurethral resection of bladder tumor (TURBT) History of Problems with Anesthesia: No Social History Social History Household Members: None Household Members Other:: daughter, son live near Housing: [facility] Are you a primary child care attendant to a significant other at home: No Do you presently have visiting nurse or other home services: Yes (home health aid) Alcohol intake: never Patient Tobacco Use Status: Former Tobacco user Quit Date: age 58 Tobacco use type: Cigarette e-Cigarette/Vaping Use: Never Used Use of substances other than those prescribed or required for medical reasons: No Have you been hit, kicked, punched, or otherwise hurt by someone within the past year? If so, by whom?: No Advance Directives Information Provided: Yes (as above noted) Advance Directives on File: No Advance Directives Date on File: 12/06/21 Recently lost weight without trying: No Eating poorly because of decreased appetite: No Nutrition Risks: Surgical patient >75years Poor oral hygiene: No (full upper and lower denture) service: No Current occupational status: retired Cognitive needs: No Hearing needs: Yes Vision needs: Yes Meds Allergies Allergy/AdvReac Type Severity Reaction Status Date / Time Penicillins AdvReac rash Verified 07/09/23 09:26 Home Medications Medication Instructions Recorded Confirmed Last Taken Type cyanocobalamin (vitamin B-12) 100 100 mcg PO DAILY 05/30/23 07/04/23 05/29/23 History mcg tablet Exam Exam Date and Time: July 08, 2023 1009 Height,Weight and Vital Signs: Height 5 ft 7 in Weight 73.482 kg Pertinent Lab Results Pertinent Lab Results: Laboratory Tests 05/30/23 10:19 WBC 6.4 Hgb 13.1 Hct 40.6 Plt Count 181 D Sodium 145 Potassium 4.2 Chloride 109 H Carbon Dioxide 24 BUN 31 H Creatinine 1.28 Narrative Narrative: EKG 05/2023 NSR @ 64 Assessment and Plan Assessment Anesthesia Assessment: Chart Reviewed Final Anesthetic Review Family History of Problems with Anesthesia: No History of Problems with Anesthesia: No Documented by User: Veronica Kerr MD 07/09/23 10:28 [facility] Past Medical History Medical History Cerebral aneurysm GERD (gastroesophageal reflux disease) Bladder cancer Positional lightheadedness Urinary incontinence Generalized anxiety disorder Microhematuria History of CVA with residual deficit Anemia COPD (chronic obstructive pulmonary disease) Family History Family History Son Seizures Other No family history of cerebrovascular accident (CVA) Surgical History Surgical History Hx of bilateral cataract extraction S/P cerebral aneurysm repair H/O transurethral resection of bladder tumor (TURBT) Social History Social History Household Members: None Household Members Other:: daughter, son live near [facility]: [facility] Are you a primary child care attendant to a significant other at home: No Do you presently have visiting nurse or other home services: Yes (home health aid) Alcohol intake: never Patient Tobacco Use Status: Former Tobacco user Quit Date: age 58 Tobacco use type: Cigarette e-Cigarette/Vaping Use: Never Used Use of substances other than those prescribed or required for medical reasons: No Have you been hit, kicked, punched, or otherwise hurt by someone within the past year? If so, by whom?: No Advance Directives Information Provided: Yes (as above noted) Advance Directives on File: No Advance Directives Date on File: 12/06/21 Recently lost weight without trying: No Eating poorly because of decreased appetite: No Nutrition Risks: Surgical patient >75years Poor oral hygiene: No (full upper and lower denture) service: No Current occupational status: retired Cognitive needs: No Hearing needs: Yes Vision needs: Yes Meds Allergies Allergy/AdvReac Type Severity Reaction Status Date / Time Penicillins AdvReac rash Verified 07/09/23 09:26 Home Medications Medication Instructions Recorded Confirmed Last Taken Type cyanocobalamin (vitamin B-12) 100 100 mcg PO DAILY 05/30/23 07/04/23 05/29/23 History mcg tablet Exam Airway Mallampati Class: III TM Dist: >3cm Neck ROM: Full Denture: Upper and Lower Loose/Missing/Broken Teeth: Yes, Upper and Lower Heart: RRR Lungs: CTA Assessment and Plan Assessment Anesthesia Assessment: Anesthesia Plan Discussed Final Anesthetic Review NPO: Yes ASA Class: III Final Preanesthetic Review: Meds/Allgs Chart Reviewed, Consent Obtained/Reviewed and Anes Risks/Benef Reviewed Patient Risk: Intermediate Procedure Risk: Low Anesthetic Plan Anesthetic Plan: GA Disposition: Standard PACU
[2023-07-09 09:41] VITALS: BP 167/70; PULSE 77; RESP 16; TEMP 36.6; O2SAT 96
[2023-07-09] MEDS: Lactated Ringers 1,000 ML 100 ML IVCONT (09:59)
--- NOTE | 2023-07-09 10:44 | MHC.SHP ---
Pre-Procedural Eval Section A Date of Service: 07/09/23 The patient is an INPATIENT: No The History & Physical has been completed within 30 days and I have reviewed it.: Yes Section B Chief Complaint: Malignant neoplasm of bladder, unspecified Details of Present Illness: see Medicine preop clearance note Allergies: Allergies Allergy/AdvReac Type Severity Reaction Status Date / Time Penicillins AdvReac rash Verified 07/09/23 09:26 Plan Diagnosis/Plan: Unchanged I have reviewed the history and physical and performed a pertinent physical examination on my patient. No changes have occurred unless specified. cystoscopy TUR bladder tumor, fulguration, bladder biopsy Time Spent With Patient Time: Total time managing care of this patient today ____ minutes.
[2023-07-09 11:53] VITALS: BP 176/71; PULSE 60; RESP 15; TEMP 36.8; O2SAT 99
[2023-07-09 11:58] VITALS: BP 168/66; PULSE 62; RESP 16; O2SAT 96
--- NOTE | 2023-07-09 12:01 | P.OP_ITS ---
Operative Note Operative Note Date of Service: 07/09/23 Narrative: PREOP DIAGNOSIS: Bladder tumor recurrent, history of superficial urothelial carcinoma bladder POSTOP DIAGNOSIS: Bladder tumor recurrent, history of superficial urothelial carcinoma bladder PROCEDURE: CYSTOSCOPY TRANSURETHRAL RESECTION OF BLADDER TUMOR, FULGURATION Anesthesia: General Surgeon Dr. Ferreira Findings: Flattened bladder lesion x 3; left posterior wall, left lateral wall Details of procedure: The patient was brought into the operating room placed on the OR table in supine position. IV Antibiotics administered. General anesthesia was administered. The patient was repositioned into lithotomy position, prepped and draped in the usual sterile fashion. Time-out was done per protocol. 2 urojet placed. The 22 trinidadian cystoscope placed. Visualization of the bladder noted Flattened bladder lesion x 3; left posterior wall, left lateral wall. No active bleeding noted. Cold cup resection with flexible biopsy instrument; muscle was visualized without evidence of perforation The 24 Bhutanese resectoscope with obturator was passed transurethrally into the bladder. The rollar ball was was used to fulgurate the base of the bladder tumors, Once there was good hemostasis the resectoscope was removed. 2 % urojet placed. The patient was brought out of anesthesia and taken to recovery in stable condition. Complications: None Drains: None
[2023-07-09 12:03] VITALS: BP 169/67; PULSE 65; RESP 16; O2SAT 96
[2023-07-09 12:08] VITALS: BP 163/61; PULSE 64; RESP 16; O2SAT 96
[2023-07-09] MEDS: Phenazopyridine HCL 100 MG TABLET PO (12:12)
[2023-07-09] MEDS: Acetaminophen 325 MG TABLET 650 MG PO (12:13)
[2023-07-09 12:23] VITALS: BP 126/91; PULSE 58; RESP 16; O2SAT 96
== END 2023-07-09 13:09 | disposition home or self-care (01) ==
PROVIDERS: PCP Internal Medicine; Visit Provider Urology
PROC: 0TBB8ZZ Excision of Bladder, Via Natural or Artificial Opening Endoscopic (ICD-10-PCS; CPT 52234; principal; 2023-07-09 10:50)
DX: D09.0 Carcinoma in situ of bladder (principal)
CPT/HCPCS: 52234; 88305; 88307; 88342; 88360; J0690; J2405; J3010

== ENCOUNTER → 2023-07-09 09:13 | Outpatient (BNV) | payer MEDICARE, SELFPAY | PROVIDERS: PCP Internal Medicine; Visit Provider Urology | DX: C67.8 Malignant neoplasm of overlapping sites of bladder (principal) | CPT/HCPCS: 52224 ==

== ENCOUNTER 2023-08-15 13:15 | Outpatient (AMB) | payer MEDICARE, SELFPAY ==
--- NOTE | 2023-08-15 13:18 | MHC.OFFVIS ---
Intake Intake Visit Reasons: 2 week (TURBT) Intake Note: Patient is Present for Follow Up TURBT Urology Medication: Gemtesa Antibiotic Allergies: Penicllins Blood Thinners:Eliquis PVR: 0ml Allergies Penicillins Adverse Reaction (Verified 07/09/23 09:26) rash HPI HPI Comments History of Present Illness Details Joy is an 88-year-old female who presents today to the office for a follow-up. 08/15/23? The patient is an 88-year-old female who was initially seen by me on 11/02/22 for office cystoscopy. At that time, she was noted to have a large papillary bladder mass. She underwent cystoscopy, TURBT on 11/20/22. 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 She completed a 6-week course of gemcitabine?bladder installation. She had follow-up cystoscopy done in January. At that time, there were some papillary tumors noted and the plan was for repeat cystoscopy, bladder biospsies, and TUR. She did not get medical clearance due to medical condition and procedure was delayed until medical condition improved. She is here s/p repeat TURBT on 07/09/23- I reviewed results. 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 -No invasive lesion seen. -Muscularis propria present. 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 -No muscularis propria present. Bladder, transurethral resection/biopsy. The patient also complains of urinary incontinence and is prescribed Gemtesa 75 mg daily. On exam, there is some mild skin irritation on the perineum which is likely secondary to urine that is constantly pressing on skin. 08/15/23: Plan: FU for office cysto surveillance in 3 months [facility] Medical History Cerebral aneurysm GERD (gastroesophageal reflux disease) Bladder cancer Positional lightheadedness Urinary incontinence Generalized anxiety disorder Microhematuria History of CVA with residual deficit Anemia COPD (chronic obstructive pulmonary disease) Surgical History Hx of bilateral cataract extraction S/P cerebral aneurysm repair H/O transurethral resection of bladder tumor (TURBT) Family History Son Seizures Other No family history of cerebrovascular accident (CVA) Social History Household Members: None Household Members Other:: daughter, son live near Housing: [facility] Are you a primary career developer to a significant other at home: No Do you presently have visiting nurse or other home services: Yes (home health aid) Alcohol intake: never Patient Tobacco Use Status: Former Tobacco user Quit Date: age 58 Tobacco use type: Cigarette e-Cigarette/Vaping Use: Never Used Advance Directives Date on File: 12/06/21 service: No Current occupational status: retired Cognitive needs: No Hearing needs: Yes Vision needs: Yes Office Procedures Post Void Residual Post Residual Void Post Void Residual (PVR): 0 26660-Pbpg Void Residual by ultrasound Results Reviewed Results Reviewed: Collected: 07/09/23 Diagnosis A. 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 -No invasive lesion seen. -Muscularis propria present. B. 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 -No invasive lesion seen. -No muscularis propria present. Bladder, transurethral resection/biopsy Procedure: Biopsy Tumor site: Posterior wall left side, and left lateral wall. 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 Histologic grade: Low grade Muscularis propria: Present in part A, not present in part B. Extent of invasion: No invasion identified. Lymphovascular invasion: N/A Clinical History Malignant neoplasm of bladder Microscopic Description Microscopic sections on A and B show proliferation of atypical cells, of variable thickness, with focal possible papillary frond formation. The malignant cells show mild variability in size and shape, with mild cell polarity alterations. The cells have clumped chromatin and small nucleoli, and few mitotic figures are seen. No invasion is seen. Immunostains show increased staining with Ki-67 and diffuse positive CK20 staining at all levels of the epithelium on both parts A and B. Controls stain appropriately. Material Received A. Bladder tumor post. wall left side bx's Assessment & Plan Assessment & Plan (1) Bladder cancer: Comment: s/p cystoscopy TURBT and fulguration on 11/20/2022. 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 s/p intravesical gemcitabine x 6 treatments? Code(s): C67.9 - Malignant neoplasm of bladder, unspecified (2) Urinary incontinence: Code(s): R32 - Unspecified urinary incontinence (3) Carcinoma in situ of bladder: Code(s): D09.0 - Carcinoma in situ of bladder Orders: Orders AMB Urinalysis Automated 08/15/23 Z13.9 - Encounter for screening, unspecified AMB Post Void Residual by ultrasound 08/15/23 R32 - Unspecified urinary incontinence Patient Instructions: The patient had an opportunity to ask questions regarding treatment plan. All questions were answered. Imaging, Laboratory studies and physical exam results were discussed and reviewed in detail. No major barriers to understanding were identified. The patient expressed understanding and agreement with the above treatment plan.? ? ? The patient is aware they should contact our office by phone for worsening of their current condition or the appearance of new symptoms. Compliance is encouraged with any medications and followup testing that is ordered.? ? ? It is a privilege to be allowed the opportunity to participate in the urologic care of your patient. If you have any questions or concerns regarding treatment for the above conditions please do not hesitate to contact me. The office telephone contact is [phone].? ? ? This note is constructed in part using voice recognition software. While every effort has been made to ensure accuracy hand packer/packager errors may have been included.? ? ? Yours sincerely,? ? ? David Arthur MD? ? Coding Level of Care Code Est Pt Level 4 (33633) Diagnoses Bladder cancer C67.9 Urinary incontinence R32 Carcinoma in situ of bladder D09.0 CPT Codes Post Residual Void - PVR CPT Code: 65358-Tbio Void Residual by ultrasound ([id number])
== END 2023-08-15 14:32 | disposition home or self-care (01) ==
PROVIDERS: PCP Internal Medicine; Visit Provider Urology
DX: C67.9 Malignant neoplasm of bladder, unspecified (principal); R32 Unspecified urinary incontinence; D09.0 Carcinoma in situ of bladder
CPT/HCPCS: 99214

== ENCOUNTER → 2023-08-15 13:15 | Outpatient (BNVA) | payer MEDICARE, SELFPAY | PROVIDERS: PCP Internal Medicine; Visit Provider Urology | DX: D09.0 Carcinoma in situ of bladder (principal); C67.9 Malignant neoplasm of bladder, unspecified; R32 Unspecified urinary incontinence | CPT/HCPCS: 51798; 99212 ==

== ENCOUNTER 2023-09-24 09:56 | Outpatient (AMB) | payer MEDICARE, SELFPAY ==
[2023-09-24 09:58] VITALS: BP 142/90; PULSE 91; O2SAT 96; BMI 25.5
--- NOTE | 2023-09-24 09:58 | A.OFFVIS_ITS ---
Intake Vital Signs 09/24/23 09:58 Height 5 ft 7 in Weight 163 lb 2.273 oz BMI 25.5 BP 142/90 H Blood Pressure Location Rt brachial Position Sitting Pulse 91 Pulse Source Doppler Pulse Oximetry (%) 96 Oxygen Delivery Method Room Air Intake Visit Reasons: COPD Allergies Penicillins Adverse Reaction (Verified 09/24/23 10:03) rash HPI COPD HPI Details 88-year-old lady, with remote history of smoking, quit over 15 years prior, now followed for moderate COPD.? After the last office visit she was switched from Trelegy o Symbicort secondary to inability to tolerate powder inhalers, however now she reports worsening symptom control with more wheezing and nonproductive cough. [facility] Medical History Cerebral aneurysm GERD (gastroesophageal reflux disease) Bladder cancer Positional lightheadedness Urinary incontinence Generalized anxiety disorder Microhematuria History of CVA with residual deficit Anemia COPD (chronic obstructive pulmonary disease) Surgical History Hx of bilateral cataract extraction S/P cerebral aneurysm repair H/O transurethral resection of bladder tumor (TURBT) Family History Son Seizures Other No family history of cerebrovascular accident (CVA) Household Members: None Household Members Other:: daughter, son live near Housing: [facility] Are you a primary field care manager to a significant other at home: No Do you presently have visiting nurse or other home services: Yes (home health aid) Alcohol intake: never Patient Tobacco Use Status: Former Tobacco user Quit Date: age 58 Tobacco use type: Cigarette e-Cigarette/Vaping Use: Never Used Advance Directives Date on File: 12/06/21 service: No Current occupational status: retired Cognitive needs: No Hearing needs: Yes Vision needs: Yes Review of Systems Const Denies daytime sleepiness, Denies excessive sweating, Denies fatigue, Denies fever(s), Denies lethargy, Denies malaise, Denies night sweats, Denies snoring and Denies weight loss Eyes Denies blurry vision and Denies itchy eyes ENT Denies nasal congestion, Denies post nasal drip, Denies sinus pain, Denies sinus pressure and Denies other ( Thrush) Card Denies chest pain, Denies pedal edema, Denies dyspnea, Reports dyspnea on exertion, Denies orthopnea and Denies paroxysmal nocturnal dyspnea Resp Reports cough, Denies hemoptysis, Denies excessive phlegm production, Denies dyspnea, Reports dyspnea on exertion, Denies snoring and Reports wheezing GI Denies abdominal pain and Denies heartburn Musc Denies myalgias, Denies arthralgias and Denies joint swelling Skin/Breast Denies rash Neuro Denies memory loss and Denies seizure-like activity Psych Denies abnormal sleep pattern, Denies anxiety and Denies memory loss Endo Denies excessive sweating, Denies fatigue and Denies heat intolerance Ry/Lymph Denies easy bruising Aller/Immun Denies itchy eyes, Denies seasonal rhinorrhea and Reports wheezing Physical Exam Vital Signs: Last Vital Signs Pulse 91 09/24/23 09:58 BP 142/90 H 09/24/23 09:58 Pulse Ox 96 09/24/23 09:58 Oxygen Delivery Method Room Air 09/24/23 09:58 BMI result Body Mass Index 25.5 Const General: no acute distress and alert Nutritional Appearance: not obese Orientation/consciousness: Other orientation findings ( oriented) HEENT Head: Yes atraumatic Eyes General: appearance normal, both eyes and all related structures Sclerae: sclerae normal EOM: EOMs intact bilaterally Neck Neck: Yes supple Lymphatic: no lymphadenopathy noted Resp Effort & Inspection: normal respiratory effort and no use of accessory muscles Auscultation: clear to auscultation bilaterally Cardio Rate: regular rate Rhythm: regular rhythm Heart sounds: no gallops, no murmurs and no rubs Skin General skin exam: other ( warm) Extrem General: No clubbing, No cyanosis and No edema Assessment & Plan Assessment & Plan (1) COPD (chronic obstructive pulmonary disease): Comment: follows w/pulmonology-taking symbicort daily Code(s): J44.9 - Chronic obstructive pulmonary disease, unspecified Plan: Suboptimally controlled on Symbicort, will switch to BrezTri. Continue Combivent. Medications: [facility] 160-9-4.8 mcg/actuation (odojexcrih-lnxajqlc-rzecaqqdwh) 2 inhalations inhalation BID 1 ea 6RF 30 days NS Coding Level of Care Code Est Pt Level 3 (54249) Diagnoses COPD (chronic obstructive pulmonary disease) J44.9
== END 2023-09-24 10:24 | disposition home or self-care (01) ==
PROVIDERS: PCP Internal Medicine; Visit Provider Internal Medicine Pulmonary Disease
DX: J44.9 Chronic obstructive pulmonary disease, unspecified (principal)
CPT/HCPCS: 99213

== ENCOUNTER → 2023-09-24 09:56 | Outpatient (BNVA) | payer MEDICARE, SELFPAY | PROVIDERS: PCP Internal Medicine; Visit Provider Internal Medicine Pulmonary Disease | DX: J44.9 Chronic obstructive pulmonary disease, unspecified (principal) | CPT/HCPCS: 99212 ==

== ENCOUNTER 2023-10-15 11:39 | Outpatient (AMB) | payer MEDICARE, SELFPAY ==
--- NOTE | 2023-10-15 13:36 | AM.OFFWIN_ITS ---
Intake Vital Signs 10/15/23 13:41 Height 5 ft 7 in Weight 163 lb BMI 25.5 BP 134/70 Blood Pressure Location Lt brachial Position Sitting Pulse 74 Pulse Source Pulse Oximeter Temp 97.5 F Temp Source Temporal Artery Scan Pulse Oximetry (%) 99 Oxygen Delivery Method Room Air Intake Visit Reasons: EP Left ear pain [phone] Intake Note: Pt is here c/o left ear pain for two weeks. Patient Tobacco Use Status: Former Tobacco user Quit Date: age 58 Allergies Penicillins Adverse Reaction (Verified 10/15/23 14:23) rash Medication List - Last Reconciled 10/15/23 by Gabriel Crowe MD apixaban (Eliquis) 5 mg PO BID atorvastatin 40 mg PO BEDTIME Breztri Aerosphere 160-9-4.8 mcg/actuation (izhykubdfd-gjufrczr-whnnxlxbhw) 2 inhalations inhalation BID 30 days NS cyanocobalamin (vitamin B-12) 100 mcg PO DAILY ferrous fumarate 324 mg PO DAILY furosemide 20 mg PO DAILY ipratropium-albuterol 20-100 mcg/actuation (Combivent Respimat) 1 puff inhalation QID meclizine 25 mg PO TID 7 days meclizine 25 mg PO DAILY PRN pantoprazole 40 mg PO DAILY phenazopyridine (Azo Urinary Pain Relief) 95 mg PO TID PRN Symbicort 160-4.5 mcg/actuation (budesonide-formoterol) 2 puffs inhalation BID 30 days NS vibegron (Gemtesa) 75 mg PO DAILY Do you need a note to return to daycare/school/sports/work: No HPI EP Left ear pain [phone] HPI Details 88-year-old female presents to the [facility] with sharp pain in the left ear. Does not report any difficulty chewing. [facility] Medical History Cerebral aneurysm GERD (gastroesophageal reflux disease) Bladder cancer Positional lightheadedness Urinary incontinence Generalized anxiety disorder Microhematuria History of CVA with residual deficit Anemia COPD (chronic obstructive pulmonary disease) Surgical History Hx of bilateral cataract extraction S/P cerebral aneurysm repair H/O transurethral resection of bladder tumor (TURBT) Family History Son Seizures Other No family history of cerebrovascular accident (CVA) Social History Household Members: None Household Members Other:: daughter, son live near Housing: Condominium Are you a primary critical care nurse specialist to a significant other at home: No Do you presently have visiting nurse or other home services: Yes (home health aid) Alcohol intake: never Patient Tobacco Use Status: Former Tobacco user Quit Date: age 58 Tobacco use type: Cigarette e-Cigarette/Vaping Use: Never Used Advance Directives Date on File: 12/06/21 service: No Current occupational status: retired Cognitive needs: No Hearing needs: Yes Vision needs: Yes Physical Exam Vital Signs: Last Vital Signs Temp 97.5 F 10/15/23 13:41 Pulse 74 10/15/23 13:41 BP 134/70 10/15/23 13:41 Pulse Ox 99 10/15/23 13:41 Oxygen Delivery Method Room Air 10/15/23 13:41 BMI result Body Mass Index 25.5 HEENT Other: Right and left ear: Impacted with wax. Office Procedures Cerumen Removal From which ear canal was the cerumen removed: bilateral Removal: otoscope w/curette Notes: patient tolerated procedure well 44365-Tmi Wax Removal by Spoon/Curette Assessment & Plan Assessment & Plan (1) Cerumen impaction: Code(s): H61.20 - Impacted cerumen, unspecified ear Plan: Wax removed. Patient tolerated the procedure well. Orders: Orders AMB Cerumen Removal Today H61.23 - Impacted cerumen, bilateral Coding Level of Care Code Est Pt Level 3 (99996) Diagnoses Cerumen impaction H61.20 CPT Codes Office Procedure - CPT: 83679-Ztd Wax Removal by Spoon/Curette ([id number])
[2023-10-15 13:41] VITALS: BP 134/70; PULSE 74; TEMP 36.4; O2SAT 99; BMI 25.5
== END 2023-10-15 14:50 | disposition home or self-care (01) ==
PROVIDERS: PCP Internal Medicine; Visit Provider Internal Medicine
DX: H61.22 Impacted cerumen, left ear (principal); H92.02 Otalgia, left ear
CPT/HCPCS: 69210; 99213

== ENCOUNTER 2023-11-13 09:52 | Outpatient (AMB) | payer MEDICARE, SELFPAY ==
--- NOTE | 2023-11-13 09:55 | A.OFFVIS_ITS ---
Intake Intake Visit Reasons: cysto Intake Note: Patient presents today for a CYSTOSCOPY Procedure: Meds: Gentesa, AZO Allergies to Antibiotic: Penicillin Blood Thinner: Eliquis Urinalysis test clear for Cysto: yes Disposable Uro-G Cystoscope Cannula: Lot: [id number] Exp: 03/06/2025 Pulp Machine Operator Required: No Accompanied by: Daughter Allergies Penicillins Adverse Reaction (Verified 11/13/23 10:21) rash HPI HPI Comments History of Present Illness Details Joy is an 88-year-old female who presents today to the office for a follow-up. 11/13/23--Office cysto: Cystoscopy findi ngs: No recurrent bladder lesions visualized. Review of chart: 08/15/23? The patient is an 88-year-old female who was initially seen by me on 11/02/22 for office cystoscopy. At that time, she was noted to have a large papillary bladder mass. She underwent cystoscopy, TURBT on 11/20/22. 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 She completed a 6-week course of gem citabine?bladder installation. She had follow-up cystoscopy done in January. At that time, there were some papillary tumors noted and the plan was for repeat cystoscopy, bladder biospsies, and TUR. She did not get medical clearance due to medical condition and procedure was delayed until medical condition improved. She is here s/p repeat TURBT on 07/09/23- I reviewed results. 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 -No invasive lesion seen. -Muscularis propria present. 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 -No muscularis propria present. Bladder, transurethral resection/biopsy. The patient also complains of urinary incontinence and is prescribed Gemtesa 75 mg daily. On exam, there is some mild skin irritation on the perineum which is likely secondary to urine that is constantly pressing on skin. 11/13/23--Plan Cont Gemtesa FU surveillance cysto in 4 months [facility] Medical History Cerebral aneurysm GERD (gastroesophageal reflux disease) Bladder cancer Positional lightheadedness Urinary incontinence Generalized anxiety disorder Microhematuria History of CVA with residual deficit Anemia COPD (chronic obstructive pulmonary disease) Surgical History Hx of bilateral cataract extraction S/P cerebral aneurysm repair H/O transurethral resection of bladder tumor (TURBT) Family History Son Seizures Other No family history of cerebrovascular accident (CVA) Social History Household Members: None Household Members Other:: daughter, son live near Housing: [facility] Are you a primary home care provider to a significant other at home: No Do you presently have visiting nurse or other home services: Yes (home health aid) Alcohol intake: never Patient Tobacco Use Status: Former Tobacco user Quit Date: age 58 Tobacco use type: Cigarette e-Cigarette/Vaping Use: Never Used Advance Directives Date on File: 12/06/21 service: No Current occupational status: retired Cognitive needs: No Hearing needs: Yes Vision needs: Yes Review of Systems Const All systems reviewed & are unremarkable except as noted in HPI and below Reports no additional complaints Eyes Reports no additional complaints ENT Reports no additional complaints Card Denies dyspnea Resp Denies cough and Denies dyspnea GI Reports no additional complaints Reports no additional complaints Musc Reports no additional complaints Skin/Breast Denies rash and Denies unusual bruising Neuro Reports no additional complaints Psych Reports no additional complaints Endo Reports no additional complaints Ry/Lymph Reports no additional complaints Aller/Immun Reports no additional complaints Office Procedures Cystoscopy Consent Discussed risk and benefit or proposed procedure with the patient. Information consent for procedure given to the patient. Discussed technical aspects, risks, benefits and alternatives in full. Addressed all of the patient's questions and concerns regarding the procedure. The patient demonstrated knowledge and understanding. They wish to proceed with this procedure. Preparation The patient was prepped in the usual manner. A winding machine operator was present and in the room. Genitalia was prepped with betadine solution in a sterile manner. Lidocaine Jelly 2% was placed into the urethra and 16Fr flexible Olympus cystoscope was inserted into the meatus after adequate lubrication. Procedure Time out per protocol performed. Bladder Inspection Bladder Inspection: The bladder was inspected in its entirety with utilization retroflexion displaying: Tumor(s): none visualized Trabeculation: N/A Mucosal Erthema: N/A Orifices: normal shape and position Urethra: normal Cystoscopy findings: no suspicious bladder lesions visualized [id number] DISPOSABLE SCOPE URO-G FLEXIBLE SCOPE Procedure code (CPT) selection complete Office Meds lidocaine HCl 2 % mucosal jelly in applicator Performing Provider: David Arthur MD Performing Location: [facility] Administered by: Mirima Burger RN on 11/13/23 10:21 Dose Route Admin Location Dispensed Lot Number Expiration Date NDC Glove Wrapper 10 mL intra-urethral 20 mL naproxen 500 mg tablet Performing Provider: David Arthur MD Performing Location: [facility] Administered by: Miriam Burger RN on 11/13/23 10:21 Dose Route Admin Location Dispensed Lot Number Expiration Date NDC Glove Wrapper 500 mg PO 1 tab ciprofloxacin HCl 500 mg tablet Performing Provider: David Arthur MD Performing Location: [facility] Administered by: Miriam Burger RN on 11/13/23 10:21 Dose Route Admin Location Dispensed Lot Number Expiration Date NDC Glove Wrapper 500 mg PO 1 tab Results AMB Urinalysis, Automated UA Leukoctes 0 Monico/uL Last Edit by Debora Suarez CMA on 11/13/23 10 :19 UA Nitrite Negative Last Edit by Debora Suarez CMA on 11/13/23 10: 19 UA Urobilinogen 0.2 mg/dL Last Edit by Debora Suarez CMA on 4 10:19 UA Protein 0 mg/dL Last Edit by Debora Suarez CMA on 11/13/23 10:19 UA pH 6.0 Last Edit by Debora Suarez CMA on 11/13/23 10:19 UA Blood 10 David/uL Last Edit by Debora Suarez CMA on 11/13/23 10:19 UA Specific [place] 1.015 Last Edit by Debora Suarez CMA on 10:19 UA Ketone Negative Last Edit by Debora Suarez, PHYSICAL MEDICINE TEACHER on 11/13/23 10:1 9 UA Bilirubin 0 mg/dL Last Edit by Debora Suarez, ASHWINI on 11/13/23 10: 19 UA Glucose 0 mg/dL Last Edit by Debora Suarez CMA on 11/13/23 10:19 Results Reviewed Results Reviewed: Laboratory Last Values Urine pH (Auto) 6.0 11/13/23 10:16 Specific [place] (Auto) 1.015 11/13/23 10:16 Urine Protein (Auto) 0 mg/dL 11/13/23 10:16 Glucose (UA)(Auto) 0 mg/dL 11/13/23 10:16 Urine Ketones (Auto) Negative 11/13/23 10:16 Urine Blood (Auto) 10 David/uL 11/13/23 10:16 Urine Nitrite (Auto) Negative 11/13/23 10:16 Urine Bilirubin (Auto) 0 mg/dL 11/13/23 10:16 Urine Urobilinogen (Auto) 0.2 mg/dL 11/13/23 10:16 Leukocyte Esterase (Auto) 0 Monico/uL 11/13/23 10:16 Assessment & Plan Assessment & Plan (1) Bladder cancer: Comment: s/p cystoscopy TURBT and fulguration on 11/20/2022. 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 s/p intravesical gemcitabine x 6 treatments? Code(s): C67.9 - Malignant neoplasm of bladder, unspecified (2) Urinary incontinence: Code(s): R32 - Unspecified urinary incontinence (3) Carcinoma in situ of bladder: Code(s): D09.0 - Carcinoma in situ of bladder Plan Cont Gemtesa FU surveillance cysto in 4 months Orders: Orders AMB Urinalysis Automated 11/13/23 R33.9 - Retention of urine, unspecified AMB Cystoscopy 11/13/23 C67.9 - Malignant neoplasm of bladder, unspecified Medications: Refilled vibegron (Gemtesa) 75 mg PO DAILY 90 tabs 3RF Coding Level of Care Code Procedure Only Diagnoses Bladder cancer C67.9 Urinary incontinence R32 Carcinoma in situ of bladder D09.0 CPT Codes Cystoscopy - CPT: 44114-[id number] ([id number])
== END 2023-11-13 11:15 | disposition home or self-care (01) ==
PROVIDERS: PCP Internal Medicine; Visit Provider Urology
DX: C67.9 Malignant neoplasm of bladder, unspecified (principal); R33.9 Retention of urine, unspecified
CPT/HCPCS: 52000

== ENCOUNTER → 2023-11-13 09:52 | Outpatient (BNVA) | payer MEDICARE, SELFPAY | PROVIDERS: PCP Internal Medicine; Visit Provider Urology | DX: C67.9 Malignant neoplasm of bladder, unspecified (principal); D09.0 Carcinoma in situ of bladder; R32 Unspecified urinary incontinence | CPT/HCPCS: 52000; 81003 ==

== ENCOUNTER 2024-06-16 10:04 | Outpatient (REF) | payer MEDICARE, SELFPAY ==
[2024-06-16 13:36] LABS: MANUAL DIFF FLAG NO
[2024-06-16 13:49] LABS: Basophils Absolute Auto 0.1 X10*3/uL (0.0-0.2); Eosinophils Absolute Auto 0.3 X10*3/uL (0.0-0.4); Eosinophils Percent Auto 4.3 % (0-4); Hematocrit 41.9 % (37.0-47.0); Hemoglobin 13.5 g/dl (12.0-16.0); Imm Gran Abs Auto 0.02 X10*3/uL (0.00-0.03); Imm Gran Pct Auto 0.3 % (0.0-0.4); Lymphocytes Absolute Auto 1.1 X10*3/uL (1.2-4.9); Lymphocytes Percent Auto 19.4 % (20-40); Mean Corpuscular HGB Conc 32.2 g/dl (31.0-35.0); Mean Corpuscular Hemoglobin 29.3 pg (27.0-33.0); Mean Corpuscular Volume 91.1 fL (80.0-98.0); Mean Platelet Volume 10.3 fL (9.4-12.3); Monocytes Absolute Auto 0.5 X10*3/uL (0.1-1.2); Neutrophils Absolute Auto 3.8 x10*3/uL (2.0-8.3); Platelet Count 232 X10*3/uL (160-400); White Blood Count 5.8 X10*3/uL (4.8-10.8)
[2024-06-16 14:22] LABS: Alanine Aminotransferase 11 U/L (0-31); Anion Gap 12 (12-20); Aspartate Amino Transferase 17 U/L (5-31); Blood Urea Nitrogen 29 mg/dL (9-16); Calcium 9.7 mg/dL (8.4-10.2); Carbon Dioxide 29 mmol/L (22-29); Chloride 108 mmol/L (96-108); Cholesterol 255 mg/dL (<200); Estimated Glomerular Filt Rate 31; Glucose Fasting 85 mg/dL (60-99); HDL Cholesterol 73 mg/dL (>40); Iron 99 mcg/dL (30-160); LDL Cholesterol Calculated 159 mg/dL (<100); Percent Iron Saturation 40 % (15-50); Sodium 145 mmol/L (135-145); Total Iron Binding Capacity 248 mcg/dL (228-428); Triglycerides 115 mg/dL (<150); Unsaturated Iron Binding 149 ug/dL
[2024-06-16 14:27] LABS: Vitamin D 25-OH Total 72.6 ng/mL (>30)
[2024-06-16 14:40] LABS: Folate 6.7 ng/mL (> or = 4.0); Vitamin B12 320 pg/mL (200-900)
== END 2024-06-16 10:05 | disposition home or self-care (01) ==
LOC: HO.HMGCLDS 10:04
PROVIDERS: PCP Internal Medicine; Visit Provider Internal Medicine
DX: R26.9 Unspecified abnormalities of gait and mobility (principal); I69.30 Unspecified sequelae of cerebral infarction; R42 Dizziness and giddiness; Z78.0 Asymptomatic menopausal state; Z92.29 Personal history of other drug therapy
CPT/HCPCS: 36415; 80048; 80061; 82306; 82607; 82746; 83540; 84450; 84460; 85025

== ENCOUNTER 2024-07-02 11:21 | Outpatient (AMB) | payer MEDICARE, SELFPAY ==
--- NOTE | 2024-07-02 11:25 | AM.OFFVISMDC ---
Intake Vital Signs 07/02/24 11:28 Height 5 ft 7 in Weight 156 lb BMI 24.4 BP 112/68 Blood Pressure Location Lt brachial Position Sitting Pulse 65 Pulse Source Pulse Oximeter Pulse Oximetry (%) 100 Oxygen Delivery Method Room Air Intake Visit Reasons: AWV Intake Note: Patient here for AWV Allergies Penicillins Adverse Reaction (Verified 07/02/24 11:42) rash Medication List - Last Reconciled 07/02/24 by Jessica Cotton MD apixaban (Eliquis) 5 mg PO BID Breztri Aerosphere 160-9-4.8 mcg/actuation (qpfjggndzv-qvykkmyv-vbvbsuxoyx) 2 inhalations inhalation BID 30 days NS ferrous fumarate 324 mg PO DAILY furosemide 20 mg PO DAILY meclizine 25 mg PO DAILY PRN pantoprazole 40 mg PO DAILY vibegron (Gemtesa) 75 mg PO DAILY Do you need a note to return to daycare/school/sports/work: No HPI AWV HPI Details AWV ? 89 year old lady with past medical history for carcinoma in Situ bladder, generalized anxiety disorder, COPD, history of CVA with residual deficit, presents today for her ? Annual Wellness Visit, initial visit.? She has been feeling well, accompanied by her grandson on this visit. She no longer gets screening screening for breast cancer, colon cancer or cervical cancer, and does not want to get any bone density test done. She had recent fasting labs done which showed elevated LDL cholesterol but normal fasting glucose. She is up-to-date with her COVID vaccination and pneumonia vaccination, reminded to get her yearly flu shot. She has difficulty hearing but does not want to get hearing aids. Complains of recurrent difficulty sleeping especially at night. Has been taking Tylenol p.m. every now and then which has helped. ? Medical / Social History Reviewed? Past Medical History ?Yes . ? [place] of Care / Care Team list updated ?Yes . ? Surgical/Hospitalization History ?Yes . ? Current Medications (including OTC and supplements) ?Yes . ? Family History ?Yes . ? Tobacco Control form ?Yes . ? AUDIT-C (Alcohol use) form ?Yes . ? Illicit drug use in Social History ?Yes . ? Current diagnosis of depression? ?No ? Appropriate PHQ2/PHQ9 completed ?Yes . ? Data entered by ?Manager Family and reviewed by provider ? Fall Risk ? Fall History? Have you had any falls with injury in the past year? ?No . ? Have you had two or more falls in the past year? ?No . ? Fall Risk Assessment: ?No falls in the past year . ? HRA filled out by the patient, reviewed by Provider and scanned. ?AWV ? Balance? Romberg ?negative ? Tandem walk ?unable. ? Walk and Turn ?unable to do without walk ? Rise from sit to stand ?Yes . ?Vision? Corrective lens ?Yes ? Vision screen ? Up-to-date, ?Hearing? Whisper test - fail ?Written Plan?Completed. See Patient Documents.? [facility] Medical History (Updated 07/02/24 @ 14:09 by Jessica Cotton MD) Hearing deficit Insomnia Cerebral aneurysm GERD (gastroesophageal reflux disease) Bladder cancer Positional lightheadedness Urinary incontinence Generalized anxiety disorder Microhematuria History of CVA with residual deficit Anemia COPD (chronic obstructive pulmonary disease) Surgical History Hx of bilateral cataract extraction S/P cerebral aneurysm repair H/O transurethral resection of bladder tumor (TURBT) Family History Son Seizures Other No family history of cerebrovascular accident (CVA) Social History Household Members: None Household Members Other:: daughter, son live near Housing: [facility] Are you a primary home care music therapist to a significant other at home: No Do you presently have visiting nurse or other home services: Yes (home health aid) Alcohol intake: never Patient Tobacco Use Status: Former Tobacco user Tobacco use type: Cigarette e-Cigarette/Vaping Use: Never Used Advance Directives Date on File: 12/06/21 service: No Current occupational status: retired Cognitive needs: No Hearing needs: Yes Vision needs: Yes Questionnaire Medicare Wellness Checkup What is your age?: 80 or older What gender do you identify with?: female During the past 4 weeks, how much have you been bothered by emotional problems such as feeling anxious, depressed, irritable, sad or downhearted, and blue?: slightly During the past 4 weeks, has your physical & emotional health limited your social activities with family, friends, neighbors, or groups?: quite a bit During the past 4 weeks, how much bodily pain have you generally had?: no pain During the past 4 weeks, was someone available to help you if you needed & wanted help?: yes, quite a bit During the past 4 weeks, what was the hardest physical activity you could do for at least 2 minutes?: moderate Can you get to places out of walking distance without help? (For eg., can you travel alone on buses, taxis or drive your car?): No Can you go shopping for groceries or clothes without someone's help?: No Can you prepare your own meals?: Yes Can you do your housework without help?: No Because of any health problems, do you need the help of another person with your personal care needs such as eating, bathing, dressing or getting around the house?: No Can you handle your own money without help?: Yes During the past 4 weeks, how would you rate your health in general?: good During the past 4 weeks how have things been going for you?: good & bad parts about equal Are you having difficulties driving your car?: not applicable, I don't use a car Do you always fasten your seat belt when you are in a car?: yes, usually During past 4 weeks, have you been bothered by the following: never: Sexual problems? and Problems using the telephone?, seldom: Teeth or denture problems?, sometimes: Falling or dizzy when standing up and Tiredness or fatigue? and often: Trouble eating well? Have you fallen 2 or more times in the past year?: Yes Are you afraid of falling?: Yes Are you a smoker?: no During the past 4 weeks, how many drinks of wine, beer, or other alcoholic beverages did you have?: no alcohol at all Do you exercise for about 20 minutes 3 or more times a week?: no, I usually do not exercise this much Have you been given information to help with the following?: yes: Hazards in your house that might hurt you? and yes: Keeping track of your medications? How often do you have trouble taking medicines the way you have been told to take them?: I always take medicine as prescribed How confident are you that you can control & manage most of your health problems?: very confident What is your race?: White Mini Mental State Exam (MMSE) Orientation What is the (year) (season) (date) (day) (month)?: year (2023), season (Summer), date (07/02/2024), day () and month (June) Where are we (state) (county) (town or city) (hospital) (floor)?: state ([place] town or city ([place]) and hospital/clinic ([facility] ) Score Score: 9 Activity of Daily Living Bathing - sponge bath, tub bath or shower: receives no assistance (gets in/out by self, if usual bathing means Dressing - getting clothes from closets & drawers, including inner/outer garments & fasteners.: gets clothes & gets completely dressed without help Toileting - going to the 'toilet room' for urine/bowel elimination & cleaning self/arranging clothes: goes to toilet room, cleans self, arranges clothes without help Transfer: moves in & out of bed and chair without help (may use support object) Continence: has occasional 'accidents' Feeding: feeds self without help Total Score: 0 Information obtained from: patient Using telephone: independent Traveling: dependent Shopping: dependent Preparing meals: independent Housework: needs assistance Taking medicine: independent Managing money: independent PHQ-9 Over the last 2 weeks, how often have you been bothered by any of the following problems? 1. Little interest or pleasure in doing things: several days 2. Feeling down, depressed, or hopeless: not at all 3. Trouble falling or staying asleep, or sleeping too much: more than half the days 4. Feeling tired or having little energy: several days 5. Poor appetite or overeating: not at all 6. Feeling bad about yourself - or that you are a failure or have let yourself or your family down: not at all 7. Trouble concentrating on things, such as reading the newspaper or watching television: several days 8. Moving or speaking so slowly that other people could have noticed. Or the opposite - being so fidgety or restless that you have been moving around a lot more than usual: not at all 9. Thoughts that you would be better off or of hurting yourself in some way: not at all Total score: 5 Depression Screening Interpretation: Negative Depression Screening Done: Yes 80881 - PHQ-9 Billing: Yes Source: Developed by Drs. Vinicio Kauffman, Veronika Kurtz, Epifanio Fontenot and colleagues, with an educational fanny from [employer]. Physical Exam Vital Signs: Last Vital Signs Pulse 65 07/02/24 11:28 BP 112/68 07/02/24 11:28 Pulse Ox 100 07/02/24 11:28 Oxygen Delivery Method Room Air 07/02/24 11:28 BMI result Body Mass Index 24.4 Assessment & Plan Assessment & Plan (1) Encounter for initial annual wellness visit (AWV) in Medicare patient: Code(s): Z00.00 - Encounter for general adult medical examination without abnormal findings Plan: Medical wellness checklist reviewed, discussed with patient and grandson, and updated. Reminded to get her COVID booster and flu shot for this year. (2) Bladder cancer: Comment: s/p cystoscopy TURBT and fulguration on 11/20/2022. 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 s/p intravesical gemcitabine x 6 treatments? Code(s): C67.9 - Malignant neoplasm of bladder, unspecified Plan: Followed by Urology Clinic (3) COPD (chronic obstructive pulmonary disease): Comment: follows w/pulmonology-taking symbicort daily Code(s): J44.9 - Chronic obstructive pulmonary disease, unspecified Plan: Continue with Breztri (4) History of CVA with residual deficit: Comment: generalized weakness-walks with walker-alert & oriented Code(s): I69.30 - Unspecified sequelae of cerebral infarction Plan: Currently on apixaban (5) Insomnia: Code(s): G47.00 - Insomnia, unspecified Qualifiers: Insomnia type: unspecified Qualified Code(s): G47.00 - Insomnia, unspecified Plan: Advised to try taking simply sleep capsules since that of Tylenol p.m. for difficulty sleeping. (6) Hearing deficit: Code(s): H91.90 - Unspecified hearing loss, unspecified ear Qualifiers: Hearing loss type: unspecified Laterality: unspecified laterality Qualified Code(s): H91.90 - Unspecified hearing loss, unspecified ear Plan: Patient declined referral for hearing evaluation, does not want to get hearing aid (7) Gait disorder: Code(s): R26.9 - Unspecified abnormalities of gait and mobility Plan: Currently using walker at home (8) Advanced directives, counseling/discussion: Code(s): Z71.89 - Other specified counseling Plan: Initiated the conversation about Advanced Directives. Advanced Directives help patients prepare for current and future decisions about their medical treatment and place of care. Discussed with patient that it is a process where a patients current condition and prognosis are reviewed, their wishes for information regarding their illness are elicited, and likely medical dilemmas are presented and options discussed. MOLST form already done, healthcare proxy completed today. These forms can be amended as needed, reviewed yearly and make changes as needed Quality Reporting (2019) Depression/Bipolar (159/160/161/177) PHQ-9: Total score: 5 Coding Level of Care Code Medicare First (G0438) Diagnoses Encounter for initial annual wellness visit (AWV) in Medicare patient Z00.00 Bladder cancer C67.9 COPD (chronic obstructive pulmonary disease) J44.9 History of CVA with residual deficit I69.30 Insomnia, unspecified type G47.00 Insomnia type: unspecified Hearing loss, unspecified hearing loss type, unspecified laterality H91.90 Hearing loss type: unspecified Laterality: unspecified laterality Gait disorder R26.9 Advanced directives, counseling/discussion Z71.89 CPT Codes Advance Care Planning - Time spent: 16-45 minutes ([id number]) Advance Care Planning Advance Care Planning discussion: Completed/Scanned Date of discussion: 07/02/24 Who was present: Patient and grandson Forms completed: Health Care Proxy Time spent: 16-45 minutes Actual minutes spent: 16
[2024-07-02 11:28] VITALS: BP 112/68; PULSE 65; O2SAT 100; BMI 24.4
== END 2024-07-02 13:15 | disposition home or self-care (01) ==
PROVIDERS: PCP Internal Medicine; Visit Provider Internal Medicine
DX: Z00.00 Encounter for general adult medical examination without abnormal findings (principal); C67.9 Malignant neoplasm of bladder, unspecified; J44.9 Chronic obstructive pulmonary disease, unspecified; I69.30 Unspecified sequelae of cerebral infarction; G47.00 Insomnia, unspecified; H91.93 Unspecified hearing loss, bilateral; R26.9 Unspecified abnormalities of gait and mobility
CPT/HCPCS: 99497; G0438; G0439